=== PATIENT | female | born 1990 | race Caucasian/White ===

== ENCOUNTER 2018-09-10 01:09 | Emergency (ER) | payer OTHER ==
[2018-09-10 01:16] VITALS: TEMP 97.8
[2018-09-10 01:43] VITALS: BP 112/77; PULSE 87; RESP 18
[2018-09-10] MEDS ORDERED: PROPARACAINE 0.5% OPHTH DROPS 15 ML BTL LEFT EYE STA (01:44)
[2018-09-10] MEDS ORDERED: HYDROcodone/APAP 5-325MG 1 EACH TAB PO STA (01:44)
[2018-09-10] MEDS ORDERED: DIPH,PERTUS(ACELL)TETVAC-LF 0.5 ML VIAL IM ONE (01:45)
[2018-09-10] MEDS ORDERED: IBUPROFEN 400 MG TAB PO STA (01:45)
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
== END 2018-09-10 02:06 | disposition home or self-care (01) ==
LOC: EC 01:09
DX: T26.12XA Burn of cornea and conjunctival sac, left eye, initial encounter (principal); T20.09XA Burn of unspecified degree of multiple sites of head, face, and neck, initial encounter; F32.9 Major depressive disorder, single episode, unspecified; Z87.891 Personal history of nicotine dependence; Z79.899 Other long term (current) drug therapy; Z23 Encounter for immunization; X12.XXXA Contact with other hot fluids, initial encounter; Y93.01 Activity, walking, marching and hiking; Y92.009 Unspecified place in unspecified non-institutional (private) residence as the place of occurrence of the external cause
CPT/HCPCS: 90471; 90715; 99283

== ENCOUNTER → 2019-08-31 | Outpatient (CLI) | payer OTHER ==
--- NOTE | 2019-08-31 11:59 | MM ---
Reason for exam: screening (asymptomatic). Baseline mammogram. History: Taking hormonal contraceptives for 1 year. Physical Findings: Nurse Summary: 2cm nodule in the right breast at 1 o'clock and 8 o'clock (nurse amanda). MG Diagnostic Mammo w CAD MARRY Bilateral CC, MLO, and XCCL view(s) were taken. The breast tissue is extremely dense which could obscure a lesion on mammography. There is nodularity bilaterally. These results were verbally communicated with the patient and result sheet given to the patient on 08/31/19. ASSESSMENT: Incomplete: need additional imaging evaluation, BI-RAD 0 RECOMMENDATION: Ultrasound of both breasts.
--- NOTE | 2019-08-31 12:03 | USB ---
Reason for exam: additional evaluation requested from abnormal screening. History: Taking hormonal contraceptives for 1 year. Physical Findings: Breast exam preformed at baseline screening. US Breast BILAT Right complete breast ultrasound includes all four quadrants, the retroareolar region and axilla. Finding demonstrates a 1.6 x 1.5 x 1.7cm solid, vascular lesion at 8 o'clock. Left complete breast ultrasound includes all four quadrants, the retroareolar region and axilla. Finding demonstrates a 1.2 x 0.7 x 1.1cm solid lesion at 6 o'clock. These results were verbally communicated with the patient and result sheet given to the patient on 08/31/19. ASSESSMENT: Suspicious, BI-RAD 4 RECOMMENDATION: Ultrasound core biopsy of right breast and possibly smaller left breast lesion. Right lesion, left lesion radiologist discretion. Called Dr. Cook's office with mammographic findings and has scheduled an appointment for the patient for 10/17/19 at 2:[address] Albert. Biopsy scheduled for 09/17/19 at 8:00. PRELIMINARY REPORT CALLED AND FAXED TO DR. ALBERT ON 08/31/19. DONNYD
== END ==
LOC: RADMAMWWP 08:56
PROVIDERS: ATTEND Obstetrics & Gynecology
DX: R92.8 Other abnormal and inconclusive findings on diagnostic imaging of breast (principal); N63.10 Unspecified lump in the right breast, unspecified quadrant
CPT/HCPCS: 77066

== ENCOUNTER → 2019-09-17 | Day surgery (SDC) | payer OTHER ==
[2019-09-17 07:36] VITALS: RESP 16; BMI 23.8
[2019-09-17 09:13] VITALS: BP 99/67; PULSE 79; TEMP 98.6
--- NOTE | 2019-09-17 09:19 | USB ---
EXAMINATION TYPE: US biopsy breast VAD RT DATE OF EXAM: 09/17/2019 CLINICAL HISTORY: R92.8 ABN MAMMO. TECHNIQUE: Ultrasound guided core biopsy of right breast. COMPARISON: 08/31/2019 bilateral breast ultrasound. FINDINGS: The procedure of ultrasound guided core biopsy was explained to the patient. Benefits, alternatives, and risks were discussed. An informed consent was then obtained. Preprocedural timeout was performed. The patient was placed in supine positioning for imaging and for the procedure. The overlying skin was prepped and draped in usual sterile fashion. 10 cc of 1% lidocaine was used as anesthetic into the skin and subcutaneous tissue up to a 1.7 cm solid vascular mass at the 8:00 position in the right breast. Under ultrasound guidance, a 12-gauge vacuum assisted biopsy gun device was used to obtain 4 core samples. Following this, a coil-shaped biopsy marker was left in mass. This was seen well under ultrasound and therefore mammogram was not performed. The patient tolerated the procedure well without any immediate complication. The patient was kept in the radiology department for short stay after the procedure and then discharged home in stable condition. IMPRESSION: Successful, uncomplicated ultrasound guided core biopsy of a 1.7 cm solid vascular mass at the 8:00 position in the right breast (possible fibroadenoma), full pathology results to follow. Recommendation for a more smoothly marginated oval smaller left breast mass measuring 1.2 cm at the 6:00 position will be made on radiologic/pathologic correlation. If the biopsied mass represents a fibroadenoma six-month follow-up ultrasound would be recommended for both masses. If the right breast mass is neoplastic than the left breast mass with require biopsy. Pathology Results: Benign RIGHT BREAST, NEEDLE CORE BIOPSY: Fibroadenoma. Recommendation Follow up ultrasound of the right breast in 6 months. MAHOGANY
== END | disposition home or self-care (01) ==
LOC: RADUSWWP 06:57
PROVIDERS: ATTEND Surgery
DX: D24.1 Benign neoplasm of right breast (principal)
CPT/HCPCS: 88305; 19083; A4648; J2001

== ENCOUNTER → 2020-07-29 | Outpatient (CLI) | payer OTHER ==
--- NOTE | 2020-07-29 11:00 | USB ---
Reason for exam: follow-up at short interval from prior study. History: Benign US biopsy breast VAD RT of the right breast, September 17, 2019. Taking hormonal contraceptives for 1 year. Physical Findings: Nurse did not find any significant physical abnormalities on exam. US Breast BILAT Right complete breast ultrasound includes all four quadrants, the retroareolar region and axilla. Finding demonstrates a 2.0 x 1.3 x 1.6cm oval, solid lesion at 8 o'clock BB, previously biopsied. Left complete breast ultrasound includes all four quadrants, the retroareolar region and axilla. Finding demonstrates a 1.3 x 0.7 x 0.9cm oval, solid lesion at 6 o'clock BB previously 1.2 x 0.7 x 1.1cm. These results were verbally communicated with the patient and result sheet given to the patient on 07/29/20. ASSESSMENT: Benign, BI-RAD 2 RECOMMENDATION: Ultrasound of both breasts in 1 year. Routine screening mammogram of both breasts at age 33. Manage patient on a clinical basis.
== END | disposition home or self-care (01) ==
LOC: RADUSWWP 09:07
PROVIDERS: ATTEND Surgery
DX: R92.8 Other abnormal and inconclusive findings on diagnostic imaging of breast (principal)

== ENCOUNTER → 2021-07-30 | Outpatient (CLI) | payer MEDICAID, OTHER ==
--- NOTE | 2021-07-30 11:39 | USB ---
Reason for exam: clinical finding. History: Benign US biopsy breast VAD RT of the right breast, September 17, 2019. Taking hormonal contraceptives for 1 year. Indicated problem(s): lump or thickening in the right breast. Physical Findings: Nurse did not find any significant physical abnormalities on exam. US Breast BILAT Right complete breast ultrasound includes all four quadrants, the retroareolar region and axilla. Finding demonstrates a 2.1 x 1.8 x 1.4cm solid, hypoechoic lesion at 8 o'clock, biopsied, known fibroadenoma. Left complete breast ultrasound includes all four quadrants, the retroareolar region and axilla. Finding demonstrates a 1.1 x 0.8 x 0.7cm solid, hypoechoic lesion at 6 o'clock. These results were verbally communicated with the patient and result sheet given to the patient on 07/30/21. ASSESSMENT: Benign, BI-RAD 2 RECOMMENDATION: Routine screening mammogram of both breasts at age 38. Routine follow up with physician.
== END | disposition home or self-care (01) ==
LOC: RADUSWWP 08:51
PROVIDERS: ATTEND Surgery
DX: N64.89 Other specified disorders of breast (principal)

== ENCOUNTER → 2021-09-12 | Outpatient (CLI) | payer MEDICAID, OTHER | END | disposition home or self-care (01) | LOC: LABWHC1 05:39 | PROVIDERS: ATTEND Emergency Medicine | DX: U07.1 COVID-19 (principal) | CPT/HCPCS: 87635 ==

== ENCOUNTER → 2022-10-18 | Outpatient (CLI) | payer BC, OTHER ==
--- NOTE | 2022-10-18 11:22 | MM ---
Reason for Exam: Clinical finding. Last mammogram was performed 3 year(s) and 2 month(s) ago. Indicated Problems: Palpable abnormality of both sides. Patient History: Menarche at age 10. First Full-Term at age 20. Patient has history of breast feeding. Currently using Hormonal Contraceptives, for 1 year. 09/17/2019, Benign Core Biopsy on the right side. Paternal aunt had breast cancer. Paternal aunt had breast cancer. Paternal aunt had ovarian cancer. Paternal cousin had breast cancer. Paternal cousin had ovarian cancer. Last menstrual period: 05/07/2022 Tissue Density: The breast tissue is heterogeneously dense. This may lower the sensitivity of mammography. Findings: Analyzed By CAD. Redemonstration of right breast previously biopsied mass. No right-sided suspicious masses distortions or calcifications. New left-sided focal asymmetry posterior depth, 10 cm from the nipple, at 12:00 position. Overall Assessment: Incomplete: need additional imaging evaluation, BI-RAD 0 Management: Diagnostic Breast Ultrasound of the left breast. A clinical breast exam by your physician is recommended on an annual basis and results should be correlated with mammographic findings. This exam should not preclude additional follow-up of suspicious palpable abnormalities. Results were given to the patient verbally at the time of exam. Electronically signed and approved by: Yunior Lujan DO
--- NOTE | 2022-10-18 11:27 | USB ---
Reason for Exam: Clinical finding. Patient History: Menarche at age 10. First Full-Term at age 20. Patient has history of breast feeding. Currently using Hormonal Contraceptives, for 1 year. 09/17/2019, Benign Core Biopsy on the right side. Paternal aunt had breast cancer. Paternal aunt had breast cancer. Paternal aunt had ovarian cancer. Paternal cousin had breast cancer. Paternal cousin had ovarian cancer. Technique: Method: Targeted. Prior Study Comparison: 08/31/2019 Bilateral Diagnostic Mammogram, [facility]. Findings: The upper section of the breast of the left breast, the area of palpable concern of the left breast, the axilla of the left breast and the retroareolar of the left breast were scanned. Left breast area of concern at 12:00 was imaged, at 12:00 10 cm from nipple demonstrates a hypoechoic, antiparallel, irregular shaped, spiculated mass measuring 2.1 x 2.0 x 1.8 cm. Overall Assessment: Highly suggestive of malignancy, BI-RAD 5 Management: Ultrasound Core Biopsy of the left breast. A clinical breast exam by your physician is recommended on an annual basis and results should be correlated with mammographic findings. This exam should not preclude additional follow-up of suspicious palpable abnormalities. Results were given to the patient verbally at the time of exam. Electronically signed and approved by: Yunior Lujan DO
== END | disposition home or self-care (01) ==
LOC: RADMAMWWP 10:13
PROVIDERS: ATTEND Obstetrics & Gynecology
DX: N63.21 Unspecified lump in the left breast, upper outer quadrant (principal); N63.13 Unspecified lump in the right breast, lower outer quadrant; Z80.3 Family history of malignant neoplasm of breast; Z80.41 Family history of malignant neoplasm of ovary
CPT/HCPCS: 77062; 77066

== ENCOUNTER → 2022-10-27 | Day surgery (SDC) | payer BC, OTHER ==
--- NOTE | 2022-11-08 14:03 | MM ---
Reason for Exam: Post Procedure Mammogram. Last screening mammogram was performed less than 1 month ago. Patient History: Menarche at age 10. First Full-Term at age 20. Patient has history of breast feeding. Currently using Hormonal Contraceptives, for 1 year. 09/17/2019, Benign Core Biopsy on the right side. Paternal aunt had breast cancer. Paternal aunt had breast cancer. Paternal aunt had ovarian cancer. Paternal cousin had breast cancer. Paternal cousin had ovarian cancer. Prior Study Comparison: 08/31/2019 Bilateral Diagnostic Mammogram, [facility]. 10/18/2022 Bilateral MG 3D diag mammo w/cad MARRY, [facility]. Tissue Density: Left: The breast tissue is heterogeneously dense. This may lower the sensitivity of mammography. Pathology Description: Location: 12 o'clock. Marker Left Behind. Needle Type: Mammotome Cores: 6 Skin Nicks: 1 Gauge: 13 The procedure of ultrasound guided core biopsy was explained to the patient. Benefits, alternatives, and risks were discussed. An informed consent was then obtained. A timeout was performed. The patient was placed in supine positioning for imaging and for the procedure. The overlying skin was prepped and draped in usual sterile fashion. Lidocaine was used as anesthetic into the skin and subcutaneous tissue up to area of concern in the left breast. A small skin noemy was made with surgical scalpel. Under ultrasound guidance, a 12-gauge vacuum assisted biopsy gun device was used to obtain 6 core samples. A biopsy clip was left in lesion. Hydromark butterfly core marker was placed. The patient tolerated the procedure well without any immediate complication. The patient was kept in the radiology department for short stay after the procedure and then discharged home in stable condition. Postprocedure mammogram: The patient was transferred to mammography for physician ordered post procedure mammogram for clip placement verification. Impression: Successful ultrasound guided core biopsy of area of concern in the left breast, full pathology results to follow. Recommendations: 1. Recommendations are pending pathology results. Pathology Results: Result: Malignant, Invasive mammary carcinoma. 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 Overall Assessment: Malignant Assessment: MG diagnostic mammo LT wo CAD. - Left: Known biopsy proven malignancy, BI-RAD 6. Management: Surgical Consultation of the left breast. Electronically signed and approved by: Ezio Dominguez D.O. Radiologis
== END ==
LOC: RADUSWWP 12:45
PROVIDERS: ATTEND Surgery
DX: R92.8 Other abnormal and inconclusive findings on diagnostic imaging of breast (principal); Z17.0 Estrogen receptor positive status [ER+]; Z80.3 Family history of malignant neoplasm of breast; Z80.41 Family history of malignant neoplasm of ovary
CPT/HCPCS: 88305; 88342; 88341; 77065; 19083; A4648

== ENCOUNTER → 2022-11-19 | Outpatient (CLI) | payer BC, OTHER ==
--- NOTE | 2022-11-29 09:28 | BMR ---
EXAMINATION TYPE: MR breast BILAT wo/w con DATE OF EXAM: 11/19/2022 COMPARISON: Bilateral 3-D mammogram diagnostic October 18, 2022 BI-RADS 0. Limited left breast ultra sound October 18, 2022 BI-RADS 5. HISTORY: Lt Breast Cancer invasive moderately differentiated mammary carcinoma preliminary grade 2 on biopsy October 18, 2022, Rt breast mass at 7 O'clock. History of benign core biopsy right breast 20 19. TECHNIQUE: A series of fat and water weighted images in the long and short axis views of both breasts are obtained in conjunction with dynamic contrast MRI with subtraction technique. The patient was i njected with 8 mL intravenous Gadavist gadolinium contrast. Three-dimensional and additional postpr ocessing imaging is created on independent workstation and reviewed during official interpretation of this study. FINDINGS: Case reviewed in consultation with [facility] radiologist. I have reviewed and agree with imaging results and report. Extremely dense fibroglandular tissue throughout the bilateral breasts are redemonstrated. Benign-radha earing bilateral axillary lymph nodes are present. Symmetric mild background enhancement is seen. Del ayed dynamic imaging shows no internal mammary lymphadenopathy. With regards to the left breast at the 12:00 position, 10 cm distance from nipple corresponding to mo st recent mammogram and ultrasound there is irregular mass with spiculated margins measuring 2.6 x 1. 4 x 2.0 cm with heterogeneous enhancement having areas of fast enhancement and washout. There is carmine fact from biopsy clip along the anterior superior aspect of the lesion. No other enhancing masses or suspicious areas of enhancement. No abnormal skin thickening. The chest wall is intact. With regards to the right breast there is oval circumscribed mass measuring 2.3 x 1.4 x 1.9 cm in the middle depth lower outer quadrant roughly 7:00 position. Dynamic postcontrast imaging shows progress marleny enhancement with artifact from biopsy clip along the inferior lateral aspect. Lesion corresponds to biopsy-proven fibroadenoma from 2019. No additional enhancing masses or suspicious areas of enhanc ement. No abnormal skin thickening. The chest wall is intact. IMPRESSION: Biopsy-proven malignancy 12:00 position identified. Enhancing mass right breast correspon ds to biopsy proven fibroadenoma. No abnormal adenopathy. BI-RADS 2 benign findings right breast BI-RADS 6 biopsy-proven cancer left breast Recommendation: Appropriate surgical and oncologic management of known left breast neoplasm.
== END | disposition home or self-care (01) ==
LOC: RADMRIMAIN 08:01
PROVIDERS: ATTEND Internal Medicine Hematology & Oncology
DX: C50.412 Malignant neoplasm of upper-outer quadrant of left female breast (principal); C50.812 Malignant neoplasm of overlapping sites of left female breast; D24.1 Benign neoplasm of right breast; Z85.3 Personal history of malignant neoplasm of breast
CPT/HCPCS: 77049; A9585

== ENCOUNTER 2023-02-10 22:26 | Emergency (ER) | payer BC, OTHER ==
[2023-02-10 22:36] VITALS: BP 109/75; RESP 18
[2023-02-10] MEDS ORDERED: SODIUM CHLORIDE 0.9% 1,000 ML IV STA (23:02)
[2023-02-10] MEDS ORDERED: KETOROLAC 15 MG/ML 1 ML VIAL IVP STA (23:11)
--- NOTE | 2023-02-10 23:25 | ED ---
Fever HPI - General Chief Complaint: Fever Stated Complaint: fever Time Seen by Provider: 02/10/23 22:37 Source: patient, RN notes reviewed Mode of arrival: ambulatory Limitations: no limitations - History of Present Illness Initial Comments: This is a 32-year-old female who presents to the emergency department for a fever. Patient is currently being treated for breast cancer. She had a double mastectomy on 01/[address] Albert. 3 days ago, she had her first chemotherapy session. She is scheduled to have 4 rounds of chemotherapy, and the next one is scheduled on 02/28. States that she has had problems with the incision healing on the left breast and the area keeps opening up and seems to be getting bigger. She has not noticed any redness around the area and she is using creams and applying dressings as instructed. Unsure if there has been any increased drainage. She took her temperature at home earlier today because she felt very warm and her stepdaughter told her that she looked red. She said that her temperature was 100.4F at home. Up to this point she has not had any fevers. Denies any sore throat, cough, dyspnea, chest pain, palpitations, abdominal pain, nausea, vomiting, diarrhea, back pain, or headaches. MD Complaint: fever - Related Data Home Medications Medication Instructions Recorded Confirmed traZODone HCL [Desyrel] 75 mg PO HS PRN 10/18/22 01/03/23 Brexpiprazole [Rexulti] 1 mg PO HS 12/23/22 01/03/23 Escitalopram [Lexapro] 20 mg PO DAILY 12/23/22 01/03/23 hydrOXYzine pamoate [Vistaril] 25 mg PO BID PRN 12/23/22 01/03/23 Previous Rx's Medication Instructions Recorded Doxycycline [Vibramycin] 100 mg PO BID 1 Days #14 capsule 12/23/22 Docusate [Colace] 100 mg PO BID #30 capsule 01/04/23 HYDROcodone/APAP 5-325MG [Leslie 1 tab PO Q6HR PRN 3 Days #12 tab 01/04/23 5-325] Cephalexin [Keflex] 500 mg PO Q8HR 4 Days #12 cap 02/11/23 Allergies Allergy/AdvReac Type Severity Reaction Status Date / Time No Known Allergies Allergy Verified 02/10/23 22:31 Review of Systems ROS Statement: Those systems with pertinent positive or pertinent negative responses have been documented in the HPI. ROS Other: All systems not noted in ROS Statement are negative. Past Medical History Past Medical History: No Reported History, Cancer Additional Past Medical History / Comment(s): breast cancer current History of Any Multi-Drug Resistant Organisms: None Reported Past Surgical History: No Surgical Hx Reported Additional Past Surgical History / Comment(s): urethral mass removed. Right breast biopsy 2019 left breast biopsy Past Anesthesia/Blood Transfusion Reactions: No Reported Reaction Past Psychological History: Anxiety, Depression Smoking Status: Former smoker General Exam Limitations: no limitations General appearance: alert, in no apparent distress Head exam: Present: atraumatic, normocephalic, normal inspection Respiratory exam: Present: normal lung sounds bilaterally. Absent: respiratory distress, wheezes, rales, rhonchi, stridor Cardiovascular Exam: Present: regular rate, normal rhythm, normal heart sounds. Absent: systolic murmur, diastolic murmur, rubs, gallop, clicks Neurological exam: Present: alert, oriented X3, CN II-XII intact Psychiatric exam: Present: normal affect, normal mood Skin exam: Present: other (The incision on the left breast is open. However, there is no surrounding erythema, swelling, tenderness, or drainage.) Course Vital Signs 02/10/23 02/10/23 02/11/23 22:32 22:44 00:44 Temperature 98.2 F 100.2 F H 99.0 F Pulse Rate 115 H 106 H Respiratory 18 Rate Blood Pressure 109/75 O2 Sat by Pulse 98 97 Oximetry Medical Decision Making - Medical Decision Making This is a 32-year-old female who presents to the emergency department for a fever. Was pt. sent in by a medical professional or institution? @ -No Did you speak to anyone other than the patient for history? @ -No Did you review nursing and triage notes? @ -Yes, and I agree, it is accurate with regards to the patient's symptoms. Were old charts reviewed? @ -No Differential Diagnosis? @ -Differential Fever: Pneumonia, viral URI, endocarditis, myocarditis, pericarditis, otitis, sinusitis, peritonsillar Abscess, retropharyngeal Abscess, epiglottitis, peritonitis, appendicitis, Sri cystitis, diverticulitis, hepatitis, colitis, UTI, PID, TOA, pyelonephritis, prostatitis, epididymitis, meningitis, encephalitis, pulmonary embolism, CVA, thyroid storm, pancreatitis, adrenal crisis, cavernous sinus thrombosis, this is not meant to be an all-inclusive list. What testing was considered but not performed? (CT, X-rays, U/S, labs)? Why? @ -None What meds were considered but not given? Why? @ -None Did you discuss the management of the patient with other professionals? @ -No Did you reconcile home meds? @ -No Was smoking cessation discussed for >3mins.? @ -No Was critical care preformed (if so, how long)? @ -No Were there social determinants of health that impacted care today? How? (Homelessness, low income, unemployed, alcoholism, drug addiction, t ransportation, low edu. Level, literacy, decrease access to med. care, [facility], rehab)? @ -No Was there de-escalation of care discussed even if they declined? (Discuss DNR or withdrawal of care, Hospice)? @ -No What co-morbidities impacted this encounter? (DM, HTN, Smoking, COPD, CAD, Cancer, CVA, Hep., AIDS, mental health diagnosis, sleep apnea, morbid obesity)? @ -Breast cancer Was patient admitted / discharged? @ -Discharged. Lab work obtained and found to be relatively nonactionable. Her temperature was 100.2 degrees F on arrival and she was tachycardic at 115 BPM. She was given IV fluids and Toradol for the fever and pain. Her fever and pain both improved following medication administration. Advised the patient that we do not have a clear cause for her fever at this time. It may be related to the chemotherapy or other underlying infection. While the surgical site does appear clean, there is still a possibility bacteria entering the area. Ceftriaxone was subsequently administered. Prescription for 4 day course of Keflex provided, again, in the event there is infection starting to develop around the open surgical incision. She is instructed to contact Dr. Albert's office first thing in the morning regarding the fever and her emergency department visit here for further instruction. Also instructed her to avoid taking the Keflex that was prescribed until checking with Dr. Albert. Undiagnosed new problem with uncertain prognosis? @ -None Drug Therapy requiring intensive monitoring for toxicity (Heparin, Nitro, Insulin, Cardizem)? @ -None Were any procedures done? @ -None Diagnosis/symptom? @ -Fever Acute, or Chronic, or Acute on Chronic? @ -Acute Uncomplicated (without systemic symptoms) or Complicated (systemic symptoms)? @ -Uncomplicated Side effects of treatment? @ -None Exacerbation, Progression, or Severe Exacerbation] @ -Not applicable Poses a threat to life or bodily function? @ -This will depend on the cause and whether or not it progresses. Diagnosis/symptom? @ -Breast cancer Acute, or Chronic, or Acute on Chronic? @ -Chronic Uncomplicated (without systemic symptoms) or Complicated (systemic symptoms)? @ -Uncomplicated Side effects of treatment? @ -None Exacerbation, Progression, or Severe Exacerbation] @ -No Poses a threat to life or bodily function? @ -The cancer in itself is a life threatening illness. Return precautions reviewed in depth, the patient is instructed to return to the emergency department with any new, worsening, or concerning symptoms. Patient verbalized understanding. This case was discussed in detail with the attending ED physician, Dr. Patel. Presentation, findings, and treatment plan discussed in detail as well. - Lab Data Result diagrams: 02/10/23 23:03 02/10/23 23:03 Lab Results 02/10/23 02/10/23 02/10/23 Range/Units 23:03 23:03 23:03 WBC 10.2 (3.8-10.6) k/uL RBC 4.47 (3.80-5.40) m/uL Hgb 13.4 (11.4-16.0) gm/dL Hct 39.8 (34.0-46.0) % MCV 89.1 (80.0-100.0) fL MCH 30.1 (25.0-35.0) pg MCHC 33.7 (31.0-37.0) g/dL RDW 12.3 (11.5-15.5) % Plt Count 183 (150-450) k/uL MPV 8.8 Neutrophils % 84 % Lymphocytes % 10 % Monocytes % 3 % Eosinophils % 2 % Basophils % 1 % Neutrophils # 8.5 H (1.3-7.7) k/uL Lymphocytes # 1.0 (1.0-4.8) k/uL Monocytes # 0.3 (0-1.0) k/uL Eosinophils # 0.2 (0-0.7) k/uL Basophils # 0.1 (0-0.2) k/uL Manual Slide Review Performed Sodium 134 L (137-145) mmol/L Potassium 3.5 (3.5-5.1) mmol/L Chloride 97 L (98-107) mmol/L Carbon Dioxide 27 (22-30) mmol/L Anion Gap 10 mmol/L BUN 11 (7-17) mg/dL Creatinine 0.64 (0.52-1.04) mg/dL Est GFR (CKD-EPI)AfAm >90 (>60 ml/min/1.73 sqM) Est GFR (CKD-EPI)NonAf >90 (>60 ml/min/1.73 sqM) Glucose 88 (74-99) mg/dL Plasma Lactic Acid Kenan (0.7-2.0) mmol/L Calcium 8.4 (8.4-10.2) mg/dL Total Bilirubin 1.0 (0.2-1.3) mg/dL AST 24 (14-36) U/L ALT 27 (4-34) U/L Alkaline Phosphatase 72 (38-126) U/L C-Reactive Protein 1.9 H (<1.0) mg/dL Total Protein 7.2 (6.3-8.2) g/dL Albumin 4.1 (3.5-5.0) g/dL Urine Color Light Yellow Urine Appearance Clear (Clear) Urine pH 6.5 (5.0-8.0) Ur Specific [place] 1.007 (1.001-1.035) Urine Protein Negative (Negative) Urine Glucose (UA) Negative (Negative) Urine Ketones Negative (Negative) Urine Blood Trace H (Negative) Urine Nitrite Negative (Negative) Urine Bilirubin Negative (Negative) Urine Urobilinogen <2.0 (<2.0) mg/dL Ur Leukocyte Esterase Negative (Negative) Urine RBC 1 (0-5) /hpf Urine WBC 1 (0-5) /hpf Ur Squamous Epith Cells 1 (0-4) /hpf Urine Mucus Rare H (None) /hpf 02/10/23 Range/Units 23:03 WBC (3.8-10.6) k/uL RBC (3.80-5.40) m/uL Hgb (11.4-16.0) gm/dL Hct (34.0-46.0) % MCV (80.0-100.0) fL MCH (25.0-35.0) pg MCHC (31.0-37.0) g/dL RDW (11.5-15.5) % Plt Count (150-450) k/uL MPV Neutrophils % % Lymphocytes % % Monocytes % % Eosinophils % % Basophils % % Neutrophils # (1.3-7.7) k/uL Lymphocytes # (1.0-4.8) k/uL Monocytes # (0-1.0) k/uL Eosinophils # (0-0.7) k/uL Basophils # (0-0.2) k/uL Manual Slide Review Sodium (137-145) mmol/L Potassium (3.5-5.1) mmol/L Chloride (98-107) mmol/L Carbon Dioxide (22-30) mmol/L Anion Gap mmol/L BUN (7-17) mg/dL Creatinine (0.52-1.04) mg/dL Est GFR (CKD-EPI)AfAm (>60 ml/min/1.73 sqM) Est GFR (CKD-EPI)NonAf (>60 ml/min/1.73 sqM) Glucose (74-99) mg/dL Plasma Lactic Acid Kenan 1.2 (0.7-2.0) mmol/L Calcium (8.4-10.2) mg/dL Total Bilirubin (0.2-1.3) mg/dL AST (14-36) U/L ALT (4-34) U/L Alkaline Phosphatase (38-126) U/L C-Reactive Protein (<1.0) mg/dL Total Protein (6.3-8.2) g/dL Albumin (3.5-5.0) g/dL Urine Color Urine Appearance (Clear) Urine pH (5.0-8.0) Ur Specific [place] (1.001-1.035) Urine Protein (Negative) Urine Glucose (UA) (Negative) Urine Ketones (Negative) Urine Blood (Negative) Urine Nitrite (Negative) Urine Bilirubin (Negative) Urine Urobilinogen (<2.0) mg/dL Ur Leukocyte Esterase (Negative) Urine RBC (0-5) /hpf Urine WBC (0-5) /hpf Ur Squamous Epith Cells (0-4) /hpf Urine Mucus (None) /hpf Disposition Clinical Impression: Fever, Breast cancer Disposition: HOME SELF-CARE Instructions (If sedation given, give patient instructions): Fever in Adults (ED) Additional Instructions: Return to the emergency department with any new, worsening, or concerning symptoms. Take the antibiotic as prescribed for [address] Albert's office in the morning regarding your emergency department visit and the fever to see if he has any further instructions for you. Prescriptions: Cephalexin [Keflex] 500 mg PO Q8HR 4 Days #12 cap Is patient prescribed a controlled substance at d/c from ED?: No Referrals: None,Stated [Primary Care Provider] - 1-2 days
[2023-02-10 23:53] LABS: ALT 27 U/L (4-34); AST 24 U/L (14-36); African American GFR (CKD) >90 (>60 ml/min/1.73 sqM); Albumin 4.1 g/dL (3.5-5.0); Alkaline Phosphatase 72 U/L (38-126); Anion Gap 10 mmol/L; Blood Urea Nitrogen 11 mg/dL (7-17); C Reactive Protein 1.9 mg/dL (<1.0); Calcium 8.4 mg/dL (8.4-10.2); Carbon Dioxide 27 mmol/L (22-30); Chloride 97 mmol/L (98-107); Glucose 88 mg/dL (74-99); Non-African American GFR(CKD) >90 (>60 ml/min/1.73 sqM); Potassium 3.5 mmol/L (3.5-5.1); Sodium 134 mmol/L (137-145); Total Protein 7.2 g/dL (6.3-8.2)
[2023-02-11 00:03] LABS: Basophils # (A) 0.1 k/uL (0-0.2); Basophils % (A) 1 %; Eosinophils # (A) 0.2 k/uL (0-0.7); Eosinophils % (A) 2 %; HCT 39.8 % (34.0-46.0); HGB 13.4 gm/dL (11.4-16.0); Lymphocytes % (A) 10 %; MCH 30.1 pg (25.0-35.0); MCHC 33.7 g/dL (31.0-37.0); MCV 89.1 fL (80.0-100.0); Mean Platelet Volume 8.8; Monocytes # (A) 0.3 k/uL (0-1.0); Monocytes % (A) 3 %; Neutrophils # (A) 8.5 k/uL (1.3-7.7); Neutrophils % (A) 84 %; Platelet Count 183 k/uL (150-450); RBC 4.47 m/uL (3.80-5.40); RDW 12.3 % (11.5-15.5); WBC 10.2 k/uL (3.8-10.6)
[2023-02-11 00:37] LABS: Appearance,Urine Clear (Clear); Bilirubin,Urine Negative (Negative); Blood,Urine Trace (Negative); Color,Urine Light Yellow; Glucose,Urine (UA) Negative (Negative); Ketones,Urine Negative (Negative); Leukocyte Esterase,Urine Negative (Negative); Mucus,Urine Rare /hpf; Nitrite,Urine Negative (Negative); PH, Urine 6.5 (5.0-8.0); Protein,Urine Negative (Negative); RBC,Urine 1 /hpf (0-5); Specific Gravity,Urine 1.007 (1.001-1.035); Squamous Epithelial Cell,Urine 1 /hpf (0-4); Urobilinogen,Urine <2.0 mg/dL (<2.0); WBC,Urine 1 /hpf (0-5)
[2023-02-11 00:44] VITALS: PULSE 106; TEMP 99
[2023-02-11] MEDS ORDERED: cefTRIAXone IN SWFI 1,000 MG/10 ML SYRINGE IVP STA (00:54)
== END 2023-02-11 01:20 | disposition home or self-care (01) ==
LOC: EC 22:26
DX: C50.912 Malignant neoplasm of unspecified site of left female breast (principal); R50.9 Fever, unspecified; F41.9 Anxiety disorder, unspecified; F32.A Depression, unspecified; Z87.891 Personal history of nicotine dependence
CPT/HCPCS: 36415; 80053; 83605; 85025; 86140; 81001; 87040; 99283; 96374; 96375; 96361; J0696; J1885

== ENCOUNTER 2023-02-17 22:22 | Inpatient (IN) | payer BC, OTHER ==
[2023-02-17] MEDS ORDERED: ACETAMINOPHEN TAB 500 MG TAB PO STA (22:54)
[2023-02-17] MEDS: SODIUM CHLORIDE 0.9% 500 ML 500 ML IV SCH (23:10)
--- NOTE | 2023-02-17 23:34 | ED ---
General Adult HPI - General Chief complaint: Fever Stated complaint: Fever, Post Op Complication Time Seen by Provider: 02/17/23 22:34 Source: patient Mode of arrival: ambulatory Limitations: no limitations - History of Present Illness Initial comments: This is a 32-year-old female with a past medical history including active breast cancer undergoing chemotherapy with her last session being last Tuesday presents emergency department for fevers, chills and right breast pain. The patient stated that throughout the day she certainly feel fevers and chills and had worsening right breast swelling and pain. The patient denied any trauma to the right breast and denied any active infection. The patient denied any recent surgery to the right breast but did state that she had expanders in status post bilateral mastectomy in December. The patient did have an open healing wound on the left breast but denied of any pain there. The patient was also seen at her oncologist office earlier in the day where it was noted that she had an elevated white blood cell count as well as a mildly elevated fever at 99F. The patient did contact her oncologist regarding her new symptoms today and she was advised to come to the emergency department. The patient had been on Keflex for approximately 7 days for a recurrent infection in the open wound of the left breast and stated that her symptoms were present while on the Keflex. The patient also reported some mild nausea but denied any active vomiting today. The patient denied any complaints. The patient was resting in bed comfortably. - Related Data Home Medications Medication Instructions Recorded Confirmed traZODone HCL [Desyrel] 75 mg PO HS PRN 10/18/22 01/03/23 Brexpiprazole [Rexulti] 1 mg PO HS 12/23/22 01/03/23 Escitalopram [Lexapro] 20 mg PO DAILY 12/23/22 01/03/23 hydrOXYzine pamoate [Vistaril] 25 mg PO BID PRN 12/23/22 01/03/23 Previous Rx's Medication Instructions Recorded Doxycycline [Vibramycin] 100 mg PO BID 1 Days #14 capsule 12/23/22 Docusate [Colace] 100 mg PO BID #30 capsule 01/04/23 HYDROcodone/APAP 5-325MG [Dillon 1 tab PO Q6HR PRN 3 Days #12 tab 01/04/23 5-325] Cephalexin [Keflex] 500 mg PO Q8HR 4 Days #12 cap 02/11/23 Allergies Allergy/AdvReac Type Severity Reaction Status Date / Time No Known Allergies Allergy Verified 02/17/23 22:24 Review of Systems ROS Statement: Those systems with pertinent positive or pertinent negative responses have been documented in the HPI. ROS Other: All systems not noted in ROS Statement are negative. Past Medical History Past Medical History: No Reported History, Cancer Additional Past Medical History / Comment(s): breast cancer current History of Any Multi-Drug Resistant Organisms: None Reported Past Surgical History: No Surgical Hx Reported Additional Past Surgical History / Comment(s): urethral mass removed. Right breast biopsy 2019 left breast biopsy Past Anesthesia/Blood Transfusion Reactions: No Reported Reaction Past Psychological History: Anxiety, Depression Smoking Status: Former smoker Past Alcohol Use History: None Reported Past Drug Use History: None Reported General Exam Limitations: no limitations General appearance: alert, in no apparent distress Head exam: Present: atraumatic, normocephalic, normal inspection Eye exam: Present: normal appearance, PERRL Pupils: Present: normal accommodation ENT exam: Present: normal exam, normal oropharynx, mucous membranes moist Neck exam: Present: normal inspection, full ROM Respiratory exam: Present: normal lung sounds bilaterally Cardiovascular Exam: Present: normal rhythm, tachycardia, normal heart sounds GI/Abdominal exam: Present: soft, normal bowel sounds Extremities exam: Present: normal inspection, full ROM Back exam: Present: normal inspection, full ROM Neurological exam: Present: alert, oriented X3, CN II-XII intact Psychiatric exam: Present: normal affect, normal mood Skin exam: Present: warm, dry Expanded Type of lesion: Present: other (Minor swelling noted to the right breast without any significant erythema noted. There was tenderness to palpation throughout the right breast. Hot Die Picker was present.) Course Vital Signs 02/17/23 02/17/23 22:24 23:53 Temperature 102.4 F H 100.7 F H Pulse Rate 124 H 102 H Respiratory 18 18 Rate Blood Pressure 107/69 O2 Sat by Pulse 98 96 Oximetry EKG Findings - EKG Comments: EKG Findings:: An EKG was obtained and was interpreted by myself showing a rate of 104, CT interval 129, QRS duration of 84 and QTC of 401. This EKG showed a sinus tachycardia with no ST segment elevation or depression noted. Medical Decision Making - Medical Decision Making Was pt. sent in by a medical professional or institution ([facility], [facility], urgent care, hospital, or fdc...) When possible be specific @ -Yes, Dr. Gomez Did you speak to anyone other than the patient for history (EMS, parent, family, police, friend...)? What history was obtained from this source @ -No Did you review nursing and triage notes (agree or disagree)? Why? @ -I reviewed and agree with nursing and triage notes Were old charts reviewed (outside hosp., previous admission, EMS record, old EKG, old radiological studies, urgent care reports/EKG's, fdc records)? Report findings @ -No old charts were reviewed Differential Diagnosis (chest pain, altered mental status, abdominal pain women, abdominal pain men, vaginal bleeding, weakness, fever, dyspnea, syncope, headache, dizziness, GI bleed, back pain, seizure, CVA, palpatations, mental health)? @ -Breast abscess, breast cellulitis, sepsis EKG interpreted by me (3pts min.). @ -As above X-rays interpreted by me (1pt min.). @ -None done CT interpreted by me (1pt min.). @ -None done U/S interpreted by me (1pt. min.). @ -An ultrasound of the right breast was obtained and was interpreted by myself showing an approximately 2.2 x 0.7 x 1 cm fluid collection in the right breast in the area of pain. It is located within 3 mm of the skin surface. This is likely a small abscess. What testing was considered but not performed or refused? (CT, X-rays, U/S, labs)? Why? @ -None What meds were considered but not given or refused? Why? @ -None Did you discuss the management of the patient with other professionals (professionals i.e. [facility] V[facility], [facility], lab, RT, psych nurse, case management social worker, sludge mill operator, teacher, gunnery/ordnance officer, business case analyst)? Give summary @ -Yes, admitting physician was contacted regarding admission for the patient. Was smoking cessation discussed for >3mins.? @ -No Was critical care preformed (if so, how long)? @ -No Were there social determinants of health that impacted care today? How? (Homelessness, low income, unemployed, alcoholism, drug addiction, transportation, low edu. Level, literacy, decrease access to med. care, longterm, rehab)? @ -No Was there de-escalation of care discussed even if they declined (Discuss DNR or withdrawal of care, Hospice)? DNR status @ -No What co-morbidities impacted this encounter? (DM, HTN, Smoking, COPD, CAD, Cancer, CVA, ARF, Chemo, Hep., AIDS, mental health diagnosis, sleep apnea, morbid obesity)? @ -Breast cancer on chemotherapy Was patient admitted / discharged? Hospital course, mention meds given and route, prescriptions, significant lab abnormalities, going to OR and other pertinent info. @ -The patient was seen and evaluated emergency department. Physical exam, the patient was resting in bed without any acute distress. Vital signs admission did show tachycardia with a fever. Due to this presentation in the setting of a right breast pain and likely abscess, the patient undergoes went sepsis workup. White blood cell count was 19. The remainder of the laboratory workup was within normal limits. The ultrasound did demonstrate a likely breast abscess the patient did have blood cultures obtained, and antibiotics were given and the patient had 30 mL per KG of fluids per sepsis protocol. Due to the patient's sepsis secondary to breast abscess, the patient will be admitted for further workup and evaluation. The patient's oncologist as well as breast surgeon will be placed on consult. Was told of this plan and was agreeable. The patient was admitted in stable condition. Undiagnosed new problem with uncertain prognosis? @ -No Drug Therapy requiring intensive monitoring for toxicity (Heparin, Nitro, Insulin, Cardizem)? @ -No Were any procedures done? @ -No Diagnosis/symptom? @ -Sepsis secondary to breast abscess Acute, or Chronic, or Acute on Chronic? @ -Acute Uncomplicated (without systemic symptoms) or Complicated (systemic symptoms)? @ -Complicated Side effects of treatment? @ -No Exacerbation, Progression, or Severe Exacerbation? @ -No Poses a threat to life or bodily function? How? (Chest pain, [place], [place], pneumonia, PE, COPD, DKA, ARF, appy, cholecystitis, CVA, Diverticulitis, Homicidal, Suicidal, threat to staff... and all critical care pts) @ -Yes, sepsis can lead to end organ damage and possible . - Lab Data Result diagrams: 02/17/23 23:08 02/17/23 23:08 Lab Results 02/17/23 02/17/2323 Range/Units 23:08 23:08 23:08 WBC 19.0 H (3.8-10.6) k/uL RBC 3.84 (3.80-5.40) m/uL Hgb 11.7 (11.4-16.0) gm/dL Hct 34.7 (34.0-46.0) % MCV 90.4 (80.0-100.0) fL MCH 30.4 (25.0-35.0) pg MCHC 33.6 (31.0-37.0) g/dL RDW 13.9 (11.5-15.5) % Plt Count 175 (150-450) k/uL MPV 8.6 PT 10.2 (9.0-12.0) sec INR 1.0 (<1.2) APTT 23.8 (22.0-30.0) sec Sodium 135 L (137-145) mmol/L Potassium 4.1 (3.5-5.1) mmol/L Chloride 100 (98-107) mmol/L Carbon Dioxide 28 (22-30) mmol/L Anion Gap 7 mmol/L BUN 7 (7-17) mg/dL Creatinine 0.71 (0.52-1.04) mg/dL Est GFR (CKD-EPI)AfAm >90 (>60 ml/min/1.73 sqM) Est GFR (CKD-EPI)NonAf >90 (>60 ml/min/1.73 sqM) Glucose 103 H (74-99) mg/dL Plasma Lactic Acid Kenan (0.7-2.0) mmol/L Calcium 8.8 (8.4-10.2) mg/dL Total Bilirubin 0.6 (0.2-1.3) mg/dL AST 43 H (14-36) U/L ALT 79 H (4-34) U/L Alkaline Phosphatase 75 (38-126) U/L Total Protein 6.7 (6.3-8.2) g/dL Albumin 3.9 (3.5-5.0) g/dL Urine Color Urine Appearance (Clear) Urine pH (5.0-8.0) Ur Specific [place] (1.001-1.035) Urine Protein (Negative) Urine Glucose (UA) (Negative) Urine Ketones (Negative) Urine Blood (Negative) Urine Nitrite (Negative) Urine Bilirubin (Negative) Urine Urobilinogen (<2.0) mg/dL Ur Leukocyte Esterase (Negative) Urine RBC (0-5) /hpf Urine WBC (0-5) /hpf Ur Squamous Epith Cells (0-4) /hpf 02/17/23 02/17/23 Range/Units 23:08 23:30 WBC (3.8-10.6) k/uL RBC (3.80-5.40) m/uL Hgb (11.4-16.0) gm/dL Hct (34.0-46.0) % MCV (80.0-100.0) fL MCH (25.0-35.0) pg MCHC (31.0-37.0) g/dL RDW (11.5-15.5) % Plt Count (150-450) k/uL MPV PT (9.0-12.0) sec INR (<1.2) APTT (22.0-30.0) sec Sodium (137-145) mmol/L Potassium (3.5-5.1) mmol/L Chloride (98-107) mmol/L Carbon Dioxide (22-30) mmol/L Anion Gap mmol/L BUN (7-17) mg/dL Creatinine (0.52-1.04) mg/dL Est GFR (CKD-EPI)AfAm (>60 ml/min/1.73 sqM) Est GFR (CKD-EPI)NonAf (>60 ml/min/1.73 sqM) Glucose (74-99) mg/dL Plasma Lactic Acid Kenan 1.1 (0.7-2.0) mmol/L Calcium (8.4-10.2) mg/dL Total Bilirubin (0.2-1.3) mg/dL AST (14-36) U/L ALT (4-34) U/L Alkaline Phosphatase (38-126) U/L Total Protein (6.3-8.2) g/dL Albumin (3.5-5.0) g/dL Urine Color Light Yellow Urine Appearance Clear (Clear) Urine pH 7.5 (5.0-8.0) Ur Specific [place] 1.008 (1.001-1.035) Urine Protein Negative (Negative) Urine Glucose (UA) Negative (Negative) Urine Ketones Negative (Negative) Urine Blood Trace H (Negative) Urine Nitrite Negative (Negative) Urine Bilirubin Negative (Negative) Urine Urobilinogen <2.0 (<2.0) mg/dL Ur Leukocyte Esterase Negative (Negative) Urine RBC 2 (0-5) /hpf Urine WBC 1 (0-5) /hpf Ur Squamous Epith Cells 2 (0-4) /hpf Disposition Clinical Impression: Breast abscess, Breast cancer, Sepsis Disposition: ADMITTED IP TO THIS HOSP Condition: Stable Is patient prescribed a controlled substance at d/c from ED?: No Referrals: None,Stated [Primary Care Provider] - 1-2 days Time of Disposition: 00:15 Decision to Admit Reason: Admit from EC Decision Date: 02/18/23 Decision Time: 00:15
[2023-02-17 23:48] LABS: ALT 79 U/L (4-34); AST 43 U/L (14-36); African American GFR (CKD) >90 (>60 ml/min/1.73 sqM); Albumin 3.9 g/dL (3.5-5.0); Alkaline Phosphatase 75 U/L (38-126); Anion Gap 7 mmol/L; Blood Urea Nitrogen 7 mg/dL (7-17); Calcium 8.8 mg/dL (8.4-10.2); Carbon Dioxide 28 mmol/L (22-30); Chloride 100 mmol/L (98-107); Glucose 103 mg/dL (74-99); Non-African American GFR(CKD) >90 (>60 ml/min/1.73 sqM); Potassium 4.1 mmol/L (3.5-5.1); Sodium 135 mmol/L (137-145); Total Bilirubin 0.6 mg/dL (0.2-1.3); Total Protein 6.7 g/dL (6.3-8.2)
[2023-02-17 23:58] LABS: Appearance,Urine Clear (Clear); Bilirubin,Urine Negative (Negative); Blood,Urine Trace (Negative); Color,Urine Light Yellow; Glucose,Urine (UA) Negative (Negative); Ketones,Urine Negative (Negative); Leukocyte Esterase,Urine Negative (Negative); Nitrite,Urine Negative (Negative); PH, Urine 7.5 (5.0-8.0); Protein,Urine Negative (Negative); RBC,Urine 2 /hpf (0-5); Specific Gravity,Urine 1.008 (1.001-1.035); Squamous Epithelial Cell,Urine 2 /hpf (0-4); Urobilinogen,Urine <2.0 mg/dL (<2.0); WBC,Urine 1 /hpf (0-5)
[2023-02-18 00:04] LABS: Partial Thromboplastin Time 23.8 sec (22.0-30.0); Prothrombin Time 10.2 sec (9.0-12.0)
[2023-02-18 00:50] LABS: HCT 34.7 % (34.0-46.0); HGB 11.7 gm/dL (11.4-16.0); MCH 30.4 pg (25.0-35.0); MCHC 33.6 g/dL (31.0-37.0); MCV 90.4 fL (80.0-100.0); Mean Platelet Volume 8.6; Platelet Count 175 k/uL (150-450); RBC 3.84 m/uL (3.80-5.40); RDW 13.9 % (11.5-15.5)
--- NOTE | 2023-02-18 00:59 | US ---
EXAM: US Right Breast, Limited CLINICAL HISTORY: US Reason: Breast abscess TECHNIQUE: Limited real time ultrasound of the right breast with image documentation, including axilla when performed. COMPARISON: Mammogram from October 27, 2022. FINDINGS: Right breast: There is an approximately 2.2 x 0.7 x 1 cm fluid collection in the right breast in the area of pain. The location of this finding within the right breast is not provided by the mine expert. This is located within 3 mm of the skin surface. Consider small abscess or seroma. Partial visualization of a breast implant deep to the area of interest. No significant surrounding fluid is seen. IMPRESSION: There is an approximately 2.2 x 0.7 x 1 cm fluid collection in the right breast in the area of pain. The location of this finding within the right breast is not provided by the mine expert. This is located within 3 mm of the skin surface. Consider small abscess or seroma.
[2023-02-18] MEDS ORDERED: VANCOMYCIN IV PER PHARMACY 1 EACH MISC MISCELLANE PRN (01:23)
[2023-02-18] MEDS: SODIUM CHLORIDE 0.9% 500 ML 500 ML IV SCH ×3 (01:31→01:55)
[2023-02-18] MEDS ORDERED: VANCOMYCIN 1,250 MG in SODIUM CHLORIDE 0.9% 250 ML IVPB ONE (02:00)
[2023-02-18 03:07] LABS: Band Neutrophils % 7 %; Lymphocytes # (M) 2.28 k/uL (1.0-4.8); Metamyelocytes # (M) 0.38 k/uL (0); Metamyelocytes % 2 %; Monocytes # (M) 1.14 k/uL (0-1.0); Neutrophils % (M) 74 %; Nucleated Red Blood Cells 0 /100 WBC (0-0); Total Cells Counted 200
[2023-02-18 03:09] LABS: Anisocytosis (M) Present
[2023-02-18] MEDS ORDERED: hydrOXYzine pamoate 25 MG CAP PO PRN (09:56)
[2023-02-18] MEDS: ESCITALOPRAM 20 MG TAB PO SCH (12:26)
[2023-02-18] MEDS: ONDANSETRON 4 MG/2 ML VIAL IVP PRN ×2 (12:26→19:50)
--- NOTE | 2023-02-18 12:59 | P.HPIM ---
History of Present Illness H&P Date: 02/18/23 History of present illness; patient is a 32-year-old lady with history of breast cancer presented to the ER because of fever ,chills and right breast pain. Patient is currently undergoing chemotherapy. Patient has been having fever and chills at home, denies any recent trauma to her breast. Denies any chest pain or shortness of breath. Patient was seen at her oncologist office and blood work done there showed patient to have elevated white count, they referred her to the ER. In the ER, initial lab work done showed WBC of 19, hemoglobin 11.7, MCV 90.4 platelet count 175, sodium 135, potassium 4.1, chloride 100, BUN 7, creatinine 0.71. Patient had a right breast ultrasound done that showed 0.2 bites 0.7 x 1 cm fluid collection in the right breast in the area of pain. This is located wit hin 3 mm of the skin surface. Consider small abscess or seroma Patient admitted for further evaluation and treatment REVIEW OF SYSTEMS: CONSTITUTIONAL: As mentioned in HPI HEENT: No recent visual problems or hearing problems. Denied any sore throat. CARDIOVASCULAR: No chest pain, orthopnea, PND, no palpitations, no syncope. PULMONARY: No shortness of breath, no cough, no hemoptysis. GASTROINTESTINAL: No diarrhea, no nausea, no vomiting, no abdominal pain. NEUROLOGICAL: No headaches, HEMATOLOGICAL: Denies any bleeding or petechiae. GENITOURINARY: Denies any burning micturition, frequency, or urgency. MUSCULOSKELETAL/RHEUMATOLOGICAL: Denies any joint pain, swelling, or any muscle pain. ENDOCRINE: Denies any polyuria or polydipsia. The rest of the 14-point review of systems is negative. PHYSICAL EXAMINATION: GENERAL: The patient is alert and oriented x3, not in any acute distress. Well developed, well nourished. HEENT: Pupils are round and equally reacting to light. EOMI. No scleral icterus. No conjunctival pallor. Normocephalic, atraumatic. No pharyngeal erythema. No thyromegaly. CARDIOVASCULAR: S1 and S2 present. No murmurs, rubs, or gallops. PULMONARY: Chest is clear to auscultation, no wheezing or crackles. ABDOMEN: Soft, nontender, nondistended, normoactive bowel sounds. No palpable organomegaly. MUSCULOSKELETAL: No joint swelling or deformity. EXTREMITIES: No cyanosis, clubbing, or pedal edema. NEUROLOGICAL: Gross neurological examination did not reveal any focal deficits. SKIN: No rashes. Right breast slightly tender and erythematous ( examined in the presence of division commander) Assessment and plan Sepsis Right breast abcess History of breast cancer Leukocytosis Plan; Monitor vital signs Monitor CBC Monitor CMP Follow-up blood cultures Continue IV Rocephin and vancomycin Hematology oncology consulted Consult surgery for right breast abscess Consult ID Consulted IR Past Medical History Past Medical History: No Reported History, Cancer Additional Past Medical History / Comment(s): breast cancer current History of Any Multi-Drug Resistant Organisms: None Reported Past Surgical History: No Surgical Hx Reported Additional Past Surgical History / Comment(s): urethral mass removed. Right breast biopsy 2019 left breast biopsy Past Anesthesia/Blood Transfusion Reactions: No Reported Reaction Past Psychological History: Anxiety, Depression Smoking Status: Former smoker Past Alcohol Use History: None Reported Additional Past Alcohol Use History / Comment(s): quit november 2022, smoked 4 yrs prior Past Drug Use History: None Reported Additional Drug Use History / Comment(s): mj for nausea when needed, refrain 24 hours to surgery Medications and Allergies Home Medications Medication Instructions Recorded Confirmed Type traZODone HCL [Desyrel] 50 - 75 mg PO HS PRN 10/18/22 02/18/23 History Brexpiprazole [Rexulti] 1 mg PO HS 12/23/22 02/18/23 History Escitalopram [Lexapro] 20 mg PO DAILY 12/23/22 02/18/23 History hydrOXYzine pamoate [Vistaril] 25 mg PO BID PRN 12/23/22 02/18/23 History OLANZapine [ZyPREXA] 2.5 mg PO HS 02/18/23 02/18/23 History Ondansetron [Zofran] 4 mg PO Q4H PRN 02/18/23 02/18/23 History Allergies Allergy/AdvReac Type Severity Reaction Status Date / Time No Known Allergies Allergy Verified 02/18/23 07:43 Physical Exam Vitals: Vital Signs Temp Pulse Pulse Resp BP BP Pulse Ox 02/18/23 07:41 99.8 F H 100 18 112/71 99 02/18/23 02:01 95 02/18/23 01:58 98.4 F 92 18 121/75 95 04/13/23 23:53 100.7 F H 102 H 18 96 02/17/23 22:24 102.4 F H 124 H 18 107/69 98 Intake and Output 02/17/23 02/18/23 02/18/23 22:59 06:59 14:59 Intake Total 200 Balance 200 Intake: Oral 200 Other: Voiding Method Toilet # Voids 2 Weight 78.925 kg 78.925 kg Results CBC & Chem 7: 02/17/23 23:08 02/17/23 23:08 Labs: Abnormal Lab Results - Last 24 Hours (Table) 02/17/23 02/17/23 02/17/23 Range/Units 23:08 23:08 23:30 WBC 19.0 H (3.8-10.6) k/uL Neutrophils # (Manual) 15.30 H (1.3-7.7) k/uL Monocytes # (Manual) 1.14 H (0-1.0) k/uL Metamyelocytes # (Man) 0.38 H (0) k/uL Sodium 135 L (137-145) mmol/L Glucose 103 H (74-99) mg/dL AST 43 H (14-36) U/L ALT 79 H (4-34) U/L Urine Blood Trace H (Negative) Thrombosis Risk Factor Assmnt - Choose All That Apply Any of the Below Risk Factors Present?: No
--- NOTE | 2023-02-18 14:26 | P.GSCN ---
History of Present Illness Consult date: 02/18/23 History of present illness: CHIEF COMPLAINT: Right breast abscess HISTORY OF PRESENT ILLNESS: This is a 32-year-old female with history of breast cancer and is currently undergoing chemotherapy. Last session was on Tuesday. Patient status post bilateral skin sparing mastectomy with sentinel lymph node biopsy of left breast and reconstruction surgery with plastic surgeon on 01/03/2023. Patient has been following up with a plastic surgeon weekly. Patient does have a known open wound on the left breast incision. She has been following wound care instructions per her plastic surgeon. Patient reports yesterday she started having swelling and what felt like engorgement on the right medial aspect of the breast. She noted some redness and warmth along the incision and increase in pain. Patient also started spiking fevers. Temp was as high as 102. She was also found to be tachycardic on admission with an elevated white count of 19. Breast ultrasound completed showing a 2 x 2 by 0.7 x 1 cm fluid collection in the right breast. It is located within 3 mm of skin surface consider small abscess or swelling. PAST MEDICAL HISTORY: See list. PAST SURGICAL HISTORY: See list. MEDICATIONS: See list. ALLERGIES: See list. SOCIAL HISTORY: No illicit drug use. REVIEW OF SYSTEMS: CONSTITUTIONAL: Denies fever or chills. HEENT: Denies blurred vision, vision changes, or eye pain. Denies hemoptysis ENDOCRINE: Denies heat or cold intolerance. CARDIOVASCULAR: Denies chest pain or pressure. RESPIRATORY: No shortness of breath. GASTROINTESTINAL: Denies abdominal pain. Denies nausea or vomiting. NEURO: Denies history of seizures. PSYCH: No depression or suicidal ideation HEMATOLOGIC: Denies bleeding disorders. LYMPHATIC: The patient denies any lumps and bumps around the neck. GENITOURINARY: Denies any blood in urine or increased urinary frequency. MUSCULOSKELETAL: Denies myalgias. Denies joint swelling. Denies decreased range of motion beyond patients baseline. SKIN: Denies pruitis. Denies rash. PHYSICAL EXAM: VITAL SIGNS: Reviewed GENERAL: Well-developed in no acute distress. HEENT: No sclera icterus. Extraocular movements grossly intact. Moist buccal mucosa. Head is atraumatic, normocephalic. Hears conversational speech. No nasal drainage. NECK: Supple without lymphadenopathy. CHEST: Non-labored respirations and equal bilateral excursions. CARDIOVASCULAR: Palpable 2+ radial pulses. ABDOMEN: Soft. Nondistended. Nontender MUSCULOSKELETAL: No clubbing or cyanosis. NEUROLOGIC: No focal or lateralizing signs. Cranial nerves II through XII grossly intact. PSYCH: Appropriate affect. Alert and oriented to person, place and time. SKIN: Well perfused. Good skin turgor. Breast: Left breast open wound on incision. Right breast swollen with tenderness along the right medial aspect and lateral aspect of the breast. Incision minimal erythema. No drainage from incision. Suture in place. LABORATORY DATA: WBC is 19 Hgb 11.7 platelets 175 Sodium is 135 potassium is 4.1 creatinine 0.71 Glucose 103 lactic acid 1.1 AST 43 ALT 79 Blood cultures pending IMAGING: Breast ultrasound as stated above ASSESSMENT: 1. Right breast abscess with ultrasound showing a 2.2 x 1 cm fluid collection 2. Status post bilateral skin sparing mastectomy with sentinel lymph node biopsy of left breast and reconstruction surgery with plastic surgeon on 01/03/2023 3. Sepsis due to right breast abscess PLAN: -Continue IV antibiotics -Agree with infectious disease consult -Dr. Cary did discuss case with patient's plastic surgeon, Dr. Mike. At this time he recommend no drainage or any surgical intervention of the abscess. He recommends to continue with IV antibiotics and monitor. -Interventional radiology consult was canceled. This was discussed with medicine service and patient's who will be notifying the IR service Thank you for this consultation Physician [employer] Window Tinter note has been reviewed by physician. Signing provider agrees with the documented findings, assessment, and plan of care. REASON FOR CONSULTATION: Right breast abscess HISTORY OF PRESENT ILLNESS: The patient is a 32-year-old female with left breast cancer is status post bilateral mastectomy with left axillary sentinel lymph node biopsy with micrometastases and bilateral tissue expanders for breast reconstruction, 01/03/2023. Patient reports having drains which were removed 8 days after operation. She has been following up with her plastic surgeon weekly. She developed wound infection along the left breast which she is packing with antibacterial dressing. Patient reports developing swelling along the right medial breast. She developed temperature 10 3F last night. Patient presented to the emergency room due to fever including new right breast swelling. She reports no prior tissue expansion performed. She was pending follow-up with her plastic surgeon today. Blood cultures have been obtained. She is on vancomycin. WBC on admission 19,000. PAST MEDICAL HISTORY: See list and reviewed PAST SURGICAL HISTORY: See list and reviewed MEDICATIONS: See list and reviewed ALLERGIES: See list and reviewed SOCIAL HISTORY: See list and reviewed FAMILY HISTORY: See list and reviewed REVIEW OF ORGAN SYSTEMS: CONSTITUTIONAL: Temperature 102.4. No recent weight loss. EYES: Denies any trouble with vision. No glasses. HEENT: No difficulties with hearing. No nosebleeds. No difficulty swallowing. RESPIRATORY: Denies pneumonia. Denies any troubles with breathing or dyspnea on exertion. CARDIOVASCULAR: Denies any chest pain, palpitations, or recent heart attacks. GASTROINTESTINAL: Denies fatty food intolerance. Denies change in bowel habits and gas bloat. GENITOURINARY: Denies any blood in urine or increased urinary frequency. NEUROLOGICAL: Denies any numbness or tingling along the distal extremities. No seizure disorders or headaches. MUSCULOSKELETAL: Denies any back pain, stiffness or joint arthritis. SKIN: No current skin cancer. No rash. PSYCHIATRIC: Has anxiety and depression ENDOCRINE: Denies current thyroid disorders. Denies any blood sugar glucose intolerance. HEME/LYMPHATIC: Denies any lumps and bumps around the neck. No recent deep venous thrombosis. ALLERGY/IMMUNOLOGY: No immunoglobulin therapy. No immune deficiencies. BREAST: Right breast biopsy. Left breast cancer. Bilateral mastectomy. PHYSICAL EXAM: VITALS: Reviewed CONSTITUTIONAL: Well developed and in no acute distress. EYES: Conjuctivae without sclera icterus. Extraocular movements grossly intact. HEAD, EARS, NOSE, THROAT: Moist buccal mucosa. Head is atraumatic, normocephalic. Hears conversational speech. No nasal drainage. NECK: Supple. No JV distention. No thyroidomegaly. RESPIRATORY: Non-labored respirations and equal bilateral excursions. No gross wheezes. BREAST: Left breast with subcutaneous ulceration and packing. Right breast with swelling without redness swelling noted along the right medial inferior breast. Transverse incision along the right breast with 2-0 Prolene central breast. No drainage. CARDIOVASCULAR: 2+ radial pulses. ABDOMEN: Nontender LYMPH: No neck lymphadenopathy. MUSCULOSKELETAL: No clubbing cyanosis SKIN: Warm and well perfused with good skin turgor. NEUROLOGIC: Cranial nerves II through XII grossly intact. No focal or lateralizing signs. PSYCH: Appropriate affect. Alert and oriented to person, place and time. Displays appropriate insight. CLINCAL LABS: Reviewed. WBC over 19,000. Hemoglobin 11.7. LFTs elevated IMAGING: Independently reviewed. Ultrasound of the right breast demonstrates small fluid collection without moderate debris. RADIOLOGY: Report reviewed ultrasound right breast demonstrate a 2 x 2 centimeter fluid collection seroma versus abscess RECORDS: previous old records reviewed from 01/03/2023 ASSESSMENT: 1. Sepsis 2. Left breast cancer status post bilateral mastectomy with reconstruction 3. Infected seroma PLAN: 1. Continue IV antibiotics with vancomycin. Recommend consultation infectious disease. 2. I personally discuss case with Dr. Albert with recommendation follow up with plastic surgery 3. Conference call with patient and her plastic surgeon Dr. Mike over 15 minutes performed. Options including removal of tissue health information coder described versus conservative management with IV antibiotics. 4. I discussed case with Dr. Mike where conservative management is feasible as patient is clinically responding of antibiotics. 5. As fluid collection is extremely small, for interventional radiology drainage. 6. At this time, patient is responding to IV antibiotics. 7. No blood pressure IVs and left arm due to left axilla with biopsy Care plan described with the patient which she was agreeable with plan of care Thank you for this kind consultation. Past Medical History Past Medical History: No Reported History, Cancer Additional Past Medical History / Comment(s): breast cancer current History of Any Multi-Drug Resistant Organisms: None Reported Past Surgical History: No Surgical Hx Reported Additional Past Surgical History / Comment(s): urethral mass removed. Right breast biopsy 2019 left breast biopsy Past Anesthesia/Blood Transfusion Reactions: No Reported Reaction Past Psychological History: Anxiety, Depression Smoking Status: Former smoker Past Alcohol Use History: None Reported Additional Past Alcohol Use History / Comment(s): quit november 2022, smoked 4 yrs prior Past Drug Use History: None Reported Additional Drug Use History / Comment(s): mj for nausea when needed, refrain 24 hours to surgery Medications and Allergies Home Medications Medication Instructions Recorded Confirmed Type traZODone HCL [Desyrel] 50 - 75 mg PO HS PRN 10/18/22 02/18/23 History Brexpiprazole [Rexulti] 1 mg PO HS 12/23/22 02/18/23 History Escitalopram [Lexapro] 20 mg PO DAILY 12/23/22 02/18/23 History hydrOXYzine pamoate [Vistaril] 25 mg PO BID PRN 12/23/22 02/18/23 History OLANZapine [ZyPREXA] 2.5 mg PO HS 02/18/23 02/18/23 History Ondansetron [Zofran] 4 mg PO Q4H PRN 02/18/23 02/18/23 History Allergies Allergy/AdvReac Type Severity Reaction Status Date / Time No Known Allergies Allergy Verified 02/18/23 07:43 Surgical - Exam Vital Signs Temp Pulse Resp BP Pulse Ox 102.4 F H 124 H 18 107/69 98 02/17/23 22:24 02/17/23 22:24 02/17/23 22:24 02/17/23 22:24 02/17/23 22:24 Results - Labs 02/17/23 23:08 02/17/23 23:08 Abnormal Lab Results - Last 24 Hours (Table) 02/17/23 02/17/23 02/17/23 Range/Units 23:08 23:08 23:30 WBC 19.0 H (3.8-10.6) k/uL Neutrophils # (Manual) 15.30 H (1.3-7.7) k/uL Monocytes # (Manual) 1.14 H (0-1.0) k/uL Metamyelocytes # (Man) 0.38 H (0) k/uL Sodium 135 L (137-145) mmol/L Glucose 103 H (74-99) mg/dL AST 43 H (14-36) U/L ALT 79 H (4-34) U/L Urine Blood Trace H (Negative) Diabetes panel 02/17/23 Range/Units 23:08 Sodium 135 L (137-145) mmol/L Potassium 4.1 (3.5-5.1) mmol/L Chloride 100 (98-107) mmol/L Carbon Dioxide 28 (22-30) mmol/L BUN 7 (7-17) mg/dL Creatinine 0.71 (0.52-1.04) mg/dL Glucose 103 H (74-99) mg/dL Calcium 8.8 (8.4-10.2) mg/dL AST 43 H (14-36) U/L ALT 79 H (4-34) U/L Alkaline Phosphatase 75 (38-126) U/L Total Protein 6.7 (6.3-8.2) g/dL Albumin 3.9 (3.5-5.0) g/dL Calcium panel 02/17/23 Range/Units 23:08 Calcium 8.8 (8.4-10.2) mg/dL Albumin 3.9 (3.5-5.0) g/dL Pituitary panel 02/17/23 Range/Units 23:08 Sodium 135 L (137-145) mmol/L Potassium 4.1 (3.5-5.1) mmol/L Chloride 100 (98-107) mmol/L Carbon Dioxide 28 (22-30) mmol/L BUN 7 (7-17) mg/dL Creatinine 0.71 (0.52-1.04) mg/dL Glucose 103 H (74-99) mg/dL Calcium 8.8 (8.4-10.2) mg/dL Adrenal panel 02/17/23 Range/Units 23:08 Sodium 135 L (137-145) mmol/L Potassium 4.1 (3.5-5.1) mmol/L Chloride 100 (98-107) mmol/L Carbon Dioxide 28 (22-30) mmol/L BUN 7 (7-17) mg/dL Creatinine 0.71 (0.52-1.04) mg/dL Glucose 103 H (74-99) mg/dL Calcium 8.8 (8.4-10.2) mg/dL Total Bilirubin 0.6 (0.2-1.3) mg/dL AST 43 H (14-36) U/L ALT 79 H (4-34) U/L Alkaline Phosphatase 75 (38-126) U/L Total Protein 6.7 (6.3-8.2) g/dL Albumin 3.9 (3.5-5.0) g/dL
--- NOTE | 2023-02-18 15:57 | P.CONS ---
History of Present Illness - Reason for Consult Consult date: 02/18/23 hx breast cancer, breast abscess Requesting physician: Ady Oneil - Chief Complaint breast abscess, fever - History of Present Illness Patient is a 32-year-old female with a significant history of invasive ductal carcinoma. She is a patient of Dr. Lu. She had bilateral mastectomy in December 2022. She has completed her first cycle of Taxotere and Cytoxan on 02/07/2023. Patient reports yesterday her right breast became painful and swollen that progressed throughout the day, and then began to develop fever and chills last night which caused her to present to the ER for further evaluation. Upon arrival patient had a temperature of 102.4. Ultrasound of the right breast showed a 2.2 x 0.7 x 1.0 cm abscess versus seroma. Patient was started on vancomycin. ID and surgery have been consulted. Of note patient was being treated for left breast wound by her surgeon and finished oral Keflex yesterday. Patient states that left breast wound is healing well and has decreased purulent drainage. Initial labs showed a hemoglobin of 11.7 and WBC 19,000. Review of Systems 10 point ROS is negative except as stated in the HPI Past Medical History Past Medical History: No Reported History, Cancer Additional Past Medical History / Comment(s): breast cancer current History of Any Multi-Drug Resistant Organisms: None Reported Past Surgical History: No Surgical Hx Reported Additional Past Surgical History / Comment(s): urethral mass removed. Right breast biopsy 2019 left breast biopsy Past Anesthesia/Blood Transfusion Reactions: No Reported Reaction Past Psychological History: Anxiety, Depression Smoking Status: Former smoker Past Alcohol Use History: None Reported Additional Past Alcohol Use History / Comment(s): quit november 2022, smoked 4 yrs prior Past Drug Use History: None Reported Additional Drug Use History / Comment(s): mj for nausea when needed, refrain 24 hours to surgery Medications and Allergies Home Medications Medication Instructions Recorded Confirmed Type traZODone HCL [Desyrel] 50 - 75 mg PO HS PRN 10/18/22 02/18/23 History Brexpiprazole [Rexulti] 1 mg PO HS 12/23/22 02/18/23 History Escitalopram [Lexapro] 20 mg PO DAILY 12/23/22 02/18/23 History hydrOXYzine pamoate [Vistaril] 25 mg PO BID PRN 12/23/22 02/18/23 History OLANZapine [ZyPREXA] 2.5 mg PO HS 02/18/23 02/18/23 History Ondansetron [Zofran] 4 mg PO Q4H PRN 02/18/23 02/18/23 History Allergies Allergy/AdvReac Type Severity Reaction Status Date / Time No Known Allergies Allergy Verified 02/18/23 07:43 Physical Exam Vitals: Vital Signs Temp Pulse Pulse Resp BP BP Pulse Ox 02/18/23 07:41 99.8 F H 100 18 112/71 99 02/18/23 02:01 95 02/18/23 01:58 98.4 F 92 18 121/75 95 02/17/23 23:53 100.7 F H 102 H 18 96 02/17/23 22:24 102.4 F H 124 H 18 107/69 98 Intake and Output 02/17/23 02/18/23 02/18/23 22:59 06:59 14:59 Intake Total 200 Balance 200 Intake: Oral 200 Other: Voiding Method Toilet # Voids 2 Weight 78.925 kg 78.925 kg - Constitutional General appearance: average body habitus, no acute distress - EENT Eyes: anicteric sclerae, EOMI ENT: hearing grossly normal - Respiratory breathing is even and unlabored - Cardiovascular Skin is warm and dry - Integumentary right breast edema noted, greater on medial aspect, with warmth and tenderness noted - Neurologic Neurologic: CNII-XII intact - Musculoskeletal Musculoskeletal: strength equal bilaterally - Psychiatric Psychiatric: A&O x's 3, appropriate affect, intact judgment & insight Results CBC & Chem 7: 02/17/23 23:08 02/17/23 23:08 Labs: Abnormal Lab Results - Last 24 Hours (Table) 02/17/23 02/17/23 02/17/23 Range/Units 23:08 23:08 23:30 WBC 19.0 H (3.8-10.6) k/uL Neutrophils # (Manual) 15.30 H (1.3-7.7) k/uL Monocytes # (Manual) 1.14 H (0-1.0) k/uL Metamyelocytes # (Man) 0.38 H (0) k/uL Sodium 135 L (137-145) mmol/L Glucose 103 H (74-99) mg/dL AST 43 H (14-36) U/L ALT 79 H (4-34) U/L Urine Blood Trace H (Negative) Comments: breast US reviewed Assessment and Plan (1) Breast abscess Current Visit: Yes Status: Acute Priority: High Code(s): N61.1 - ABSCESS OF THE BREAST AND NIPPLE SNOMED Code(s): 79559196 (2) Breast cancer Current Visit: Yes Status: Acute Code(s): C50.919 - MALIGNANT NEOPLASM OF UNSP SITE OF UNSPECIFIED FEMALE BREAST SNOMED Code(s): 668993649 Plan: Breast abscess: -Ultrasound of the right breast showed a 2.2 x 0.7 x 1.0 cm abscess versus seroma. Patient was started on vancomycin. -ID and surgery have been consulted. Plan for continuation of IV abx -WBC counts stable, 19,000 today -Will defer to ID/surgery for management Breast cancer: -Hx grade 2,invasive ductal carcinoma, ER+, HER2/IRVIN negative -Bilateral masectomy 2022 -S/p completion cycle 1 of Taxotere and Cytoxan on 02/07/2023. Cycle 2 scheduled for 02/28. F/u in clinic scheduled 02/24. Will reevaluate patient at time before progressing to cycle 2. Pt updated on POC attests: I have performed H&P and developed impression and plan of care for patient, discussed with dictator. I agree with dictated note, documented as a scribe
[2023-02-18] MEDS: VANCOMYCIN 1,250 MG in SODIUM CHLORIDE 0.9% 250 ML IVPB SCH (16:06)
[2023-02-18] MEDS: OLANZapine 2.5 MG TAB PO SCH (20:47)
[2023-02-18] MEDS: Brexpiprazole [Rexulti] 1 MG Tablet PO SCH (20:48)
--- NOTE | 2023-02-18 21:09 | P.CONS ---
History of Present Illness - Reason for Consult Consult date: 02/18/23 - History of Present Illness Patient is a 32-year-old female with a past medical history significant for left breast cancer in this patient who is status post bilateral mastectomy and reconstructive surgery done in December 2022 and the patient has completed her fourth cycle of chemotherapy on 02/07/2023 patient presenting to the ER at [facility] yesterday for evaluation of right breast becoming more painful progressing swelling throughout the day patient describing pain to be more of a full sensation intensity 7-8 out of 10 and no radiation, patient did have some chills and on presentation to the hospital patient did have a fever of 102.4 F patient did have white count 19,000 with a left shift kidney function has been normal liver exams are normal urine was negative patient did have a breast ultrasound approximately 2.2 x 0.71 cm fluid collection right breast concerning for possible abscess patient was started on vancomycin infectious disease was consulted for further management of antibiotic therapy Past Medical History Past Medical History: No Reported History, Cancer Additional Past Medical History / Comment(s): breast cancer current History of Any Multi-Drug Resistant Organisms: None Reported Past Surgical History: No Surgical Hx Reported Additional Past Surgical History / Comment(s): urethral mass removed. Right breast biopsy 2019 left breast biopsy Past Anesthesia/Blood Transfusion Reactions: No Reported Reaction Past Psychological History: Anxiety, Depression Smoking Status: Former smoker Past Alcohol Use History: None Reported Additional Past Alcohol Use History / Comment(s): quit november 2022, smoked 4 yrs prior Past Drug Use History: None Reported Additional Drug Use History / Comment(s): mj for nausea when needed, refrain 24 hours to surgery Medications and Allergies Home Medications Medication Instructions Recorded Confirmed Type traZODone HCL [Desyrel] 50 - 75 mg PO HS PRN 10/18/22 02/18/23 History Brexpiprazole [Rexulti] 1 mg PO HS 12/23/22 02/18/23 History Escitalopram [Lexapro] 20 mg PO DAILY 12/23/22 02/18/23 History hydrOXYzine pamoate [Vistaril] 25 mg PO BID PRN 12/23/22 02/18/23 History OLANZapine [ZyPREXA] 2.5 mg PO HS 02/18/23 02/18/23 History Ondansetron [Zofran] 4 mg PO Q4H PRN 02/18/23 02/18/23 History Allergies Allergy/AdvReac Type Severity Reaction Status Date / Time No Known Allergies Allergy Verified 02/18/23 07:43 Physical Exam Vitals: Vital Signs Temp Pulse Pulse Resp BP BP Pulse Ox 02/18/23 07:41 99.8 F H 100 18 112/71 99 02/18/23 02:01 95 02/18/23 01:58 98.4 F 92 18 121/75 95 02/17/23 23:53 100.7 F H 102 H 18 96 02/17/23 22:24 102.4 F H 124 H 18 107/69 98 Intake and Output 02/17/23 02/18/23 02/18/23 22:59 06:59 14:59 Intake Total 200 Balance 200 Intake: Oral 200 Other: Voiding Method Toilet # Voids 2 Weight 78.925 kg 78.925 kg Results CBC & Chem 7: 02/17/23 23:08 02/17/23 23:08 Labs: Abnormal Lab Results - Last 24 Hours (Table) 02/17/23 02/17/23 02/17/23 Range/Units 23:08 23:08 23:30 WBC 19.0 H (3.8-10.6) k/uL Neutrophils # (Manual) 15.30 H (1.3-7.7) k/uL Monocytes # (Manual) 1.14 H (0-1.0) k/uL Metamyelocytes # (Man) 0.38 H (0) k/uL Sodium 135 L (137-145) mmol/L Glucose 103 H (74-99) mg/dL AST 43 H (14-36) U/L ALT 79 H (4-34) U/L Urine Blood Trace H (Negative) Assessment and Plan Plan: 1patient is in the hospital with sepsis and this went to have a fever elevated white count source is right breast abscess in this patient who did have a history of left breast cancer status post bilateral mastectomy and tissue sports medicine specialist placement and has recently completed her chemotherapy with ultrasound suggestive for small abscess to the right breast area 2-we will consult IR for IR drainage of this fluid collection which should be sent for culture 3-continue with vancomycin pharmacy to dose while watching her kidney function closely 4-we will recheck inflammatory markers and CBC with a.m. lab We will follow on clinical condition and cultures to further adjust medication if needed Thank you for this consultation we will follow the patient along with you Time with Patient: Greater than 30
[2023-02-19] MEDS: VANCOMYCIN 1,250 MG in SODIUM CHLORIDE 0.9% 250 ML IVPB SCH ×3 (03:36→23:35)
[2023-02-19 07:04] LABS: ALT 49 U/L (4-34); AST 24 U/L (14-36); African American GFR (CKD) >90 (>60 ml/min/1.73 sqM); Albumin 3.1 g/dL (3.5-5.0); Albumin/Globulin Ratio 1.2; Alkaline Phosphatase 57 U/L (38-126); Anion Gap 5 mmol/L; Blood Urea Nitrogen 4 mg/dL (7-17); Calcium 7.8 mg/dL (8.4-10.2); Carbon Dioxide 23 mmol/L (22-30); Chloride 109 mmol/L (98-107); Globulin 2.6 g/dL; Glucose 104 mg/dL (74-99); Non-African American GFR(CKD) >90 (>60 ml/min/1.73 sqM); Sodium 137 mmol/L (137-145); Total Bilirubin 0.3 mg/dL (0.2-1.3); Total Protein 5.7 g/dL (6.3-8.2)
[2023-02-19 07:16] LABS: C Reactive Protein 12.9 mg/dL (<1.0)
[2023-02-19] MEDS: ESCITALOPRAM 20 MG TAB PO SCH (08:46)
[2023-02-19] MEDS ORDERED: ESCITALOPRAM 20 MG TAB PO SCH (09:00)
[2023-02-19 09:50] LABS: HCT 32.2 % (37.2-46.3); HGB 10.3 g/dL (12.0-15.0); MCH 29.9 pg (27.0-32.0); MCV 93.3 fL (80.0-97.0); Mean Platelet Volume 10.5 fL (9.5-12.2); NRBC Per 100 WBC 0.4 /100 WBCS (0.0-0.0); Platelet Count 161 X 10*3/uL (140-440); RBC 3.45 X 10*6/uL (4.10-5.20); RDW 13.5 % (11.5-14.5); WBC 13.25 X 10*3/uL (4.50-10.00)
[2023-02-19 10:26] LABS: Basophils # (M) 0 X 10*3/uL (0.00-0.10); Eosinophils # (M) 0 X 10*3/uL (0.04-0.35); Lymphocytes # (M) 1.06 X 10*3/uL (0.90-5.00); Metamyelocytes % 1 % (0-0); Monocytes # (M) 1.06 X 10*3/uL (0.20-1.00); Neutrophils % (M) 83 %; RBC Morphology NORMAL
--- NOTE | 2023-02-19 11:05 | P.PN ---
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 Since admission, she has moderate improvement. WBC count improved from over 19,012 or 13,000. No further fevers in 24 hours. She reports clinically feeling better. She still reports swelling along the right breast however no redness. REVIEW OF ORGAN SYSTEMS: CONSTITUTIONAL: No further fevers in 24 hours PSYCHIATRIC: Has anxiety and depression BREAST: Left breast cancer. Bilateral mastectomy. PHYSICAL EXAM: VITALS: Reviewed CONSTITUTIONAL: Well developed and in no acute distress. EYES: Conjuctivae without sclera icterus. Extraocular movements grossly intact. HEAD, EARS, NOSE, THROAT: Moist buccal mucosa. Head is atraumatic, normoc ephalic. Hears conversational speech. No nasal drainage. RESPIRATORY: Non-labored respirations and equal bilateral excursions. No gross wheezes. BREAST: Right breast with swelling without redness, swelling noted along the right medial inferior breast, stable. No drainage. CARDIOVASCULAR: 2+ radial pulses. ABDOMEN: Nontender MUSCULOSKELETAL: No clubbing cyanosis SKIN: Warm and well perfused with good skin turgor. NEUROLOGIC: Cranial nerves II through XII grossly intact. No focal or latera lizing signs. PSYCH: Appropriate affect. Alert and oriented to person, place and time. Displays appropriate insight. CLINCAL LABS: Reviewed. WBC over 19,000, now over 13,000 ASSESSMENT: 1. Sepsis, resolving 2. Left breast cancer status post bilateral mastectomy with reconstruction 3. Infected seroma 4. Right breast swelling PLAN: 1. Clinically, patient reports feeling better today. Continue with IV antibiotics conservative management 2. No additional surgical intervention needed at this time as patient is clinically responding 3. Care plan discussed with patient and all questions addressed 4. Patient's plastic surgeon, Dr Mike, also informed with continued care plan Objective - Vital Signs Vital signs: Vital Signs Temp 98.1 F 02/19/23 07:44 Pulse 86 02/19/23 07:44 Resp 18 02/19/23 07:44 BP 98/62 02/19/23 07:44 Pulse Ox 97 02/19/23 07:44 FiO2 Intake & Output 02/18/23 02/19/23 02/19/23 18:59 06:59 18:59 Intake Total 490 Balance 490 Intake: Intake, IV Titration 250 Amount Vancomycin 1,250 mg In 250 Sodium Chloride 0.9% 250 ml @ 125 mls/hr IVPB Q12H [facility] Rx#:[id number] Oral 240 Other: Voiding Method Toilet Toilet # Voids 2 1 0 - Labs CBC & Chem 7: 02/19/23 06:20 02/19/23 06:20 Labs: Abnormal Lab Results - Last 24 Hours (Table) 02/19/23 02/19/23 Range/Units 06:20 06:20 WBC 13.25 H (4.50-10.00) X 10*3/uL RBC 3.45 L (4.10-5.20) X 10*6/uL Hgb 10.3 L (12.0-15.0) g/dL Hct 32.2 L (37.2-46.3) % Absolute Nucleated RBC 0.05 H (0.00-0.00) X 10*3/uL Metamyelocytes % 1 H (0-0) % Neutrophils # (Manual) 11.00 H (2.00-8.90) X 10*3/uL Monocytes # (Manual) 1.06 H (0.20-1.00) X 10*3/uL Eosinophils # (Manual) 0 L (0.04-0.35) X 10*3/uL NRBC/100 WBC Diff 0.4 H (0.0-0.0) /100 WBCS Chloride 109 H (98-107) mmol/L BUN 4 L (7-17) mg/dL Glucose 104 H (74-99) mg/dL Calcium 7.8 L (8.4-10.2) mg/dL ALT 49 H (4-34) U/L C-Reactive Protein 12.9 H (<1.0) mg/dL Total Protein 5.7 L (6.3-8.2) g/dL Albumin 3.1 L (3.5-5.0) g/dL Microbiology - Last 24 Hours (Table) 02/17/23 23:56 Blood Culture - Preliminary Blood No Growth after 24 hours 02/17/23 23:08 Blood Culture - Preliminary Blood No Growth after 24 hours
--- NOTE | 2023-02-19 14:23 | P.PN ---
Subjective Progress Note Date: 02/19/23 Principal diagnosis: Breast cancer -No acute events overnight -Notes having significant improvement in erythema and tenderness of the right breast Objective - Vital Signs Vital signs: Vital Signs Temp 98.1 F 02/19/23 07:44 Pulse 86 02/19/23 07:44 Resp 18 02/19/23 07:44 BP 98/62 02/19/23 07:44 Pulse Ox 97 02/19/23 07:44 FiO2 Intake & Output 02/18/23 02/19/23 02/19/23 18:59 06:59 18:59 Intake Total 490 Balance 490 Intake: Intake, IV Titration 250 Amount Vancomycin 1,250 mg In 250 Sodium Chloride 0.9% 250 ml @ 125 mls/hr IVPB Q12H [facility] Rx#:[id number] Oral 240 Other: Voiding Method Toilet Toilet # Voids 2 1 0 - Constitutional General appearance: Present: cooperative, no acute distress - EENT Eyes: Present: EOMI - Respiratory Respiratory: bilateral: CTA - Cardiovascular Rhythm: regular - Gastrointestinal General gastrointestinal: Present: soft. Absent: distended - Integumentary Integumentary Comment(s): Right breast tenderness with mild erythema - Neurologic Neurologic: Present: CNII-XII intact. Absent: focal deficits - Labs CBC & Chem 7: 02/19/23 06:20 02/19/23 06:20 Labs: Abnormal Lab Results - Last 24 Hours (Table) 02/19/23 02/19/23 Range/Units 06:20 06:20 WBC 13.25 H (4.50-10.00) X 10*3/uL RBC 3.45 L (4.10-5.20) X 10*6/uL Hgb 10.3 L (12.0-15.0) g/dL Hct 32.2 L (37.2-46.3) % Absolute Nucleated RBC 0.05 H (0.00-0.00) X 10*3/uL Metamyelocytes % 1 H (0-0) % Neutrophils # (Manual) 11.00 H (2.00-8.90) X 10*3/uL Monocytes # (Manual) 1.06 H (0.20-1.00) X 10*3/uL Eosinophils # (Manual) 0 L (0.04-0.35) X 10*3/uL NRBC/100 WBC Diff 0.4 H (0.0-0.0) /100 WBCS Chloride 109 H (98-107) mmol/L BUN 4 L (7-17) mg/dL Glucose 104 H (74-99) mg/dL Calcium 7.8 L (8.4-10.2) mg/dL ALT 49 H (4-34) U/L C-Reactive Protein 12.9 H (<1.0) mg/dL Total Protein 5.7 L (6.3-8.2) g/dL Albumin 3.1 L (3.5-5.0) g/dL Microbiology - Last 24 Hours (Table) 02/17/23 23:56 Blood Culture - Preliminary Blood No Growth after 24 hours 02/17/23 23:08 Blood Culture - Preliminary Blood No Growth after 24 hours Assessment and Plan (1) Breast abscess Current Visit: Yes Status: Acute Priority: High Code(s): N61.1 - ABSCESS OF THE BREAST AND NIPPLE SNOMED Code(s): 94583536 (2) Breast cancer Current Visit: Yes Status: Acute Code(s): C50.919 - MALIGNANT NEOPLASM OF UNSP SITE OF UNSPECIFIED FEMALE BREAST SNOMED Code(s): 146214452 Plan: Breast abscess vs infected seroma: -Ultrasound of the right breast showed a 2.2 x 0.7 x 1.0 cm abscess versus seroma. 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 Cycle 2 scheduled for 02/28. F/u in clinic scheduled 02/24. Will reevaluate patient at time before progressing to cycle 2. Pt updated on POC
[2023-02-19] MEDS ORDERED: VANCOMYCIN TROUGH DUE 1 EACH MISC MISCELLANE ONE (15:00)
--- NOTE | 2023-02-19 15:12 | P.PN ---
Subjective Progress Note Date: 02/19/23 patient is a 32-year-old lady with history of breast cancer presented to the ER because of fever ,chills and right breast pain. Patient is currently undergoing chemotherapy. Patient has been having fever and chills at home, denies any recent trauma to her breast. Denies any chest pain or shortness of breath. Patient was seen at her oncologist office and blood work done there showed patient to have elevated white count, they referred her to the ER. In the ER, initial lab work done showed WBC of 19, hemoglobin 11.7, MCV 90.4 platelet count 175, sodium 135, potassium 4.1, chloride 100, BUN 7, creatinine 0.71. Patient had a right breast ultrasound done that showed 0.2 bites 0.7 x 1 cm fluid collection in the right breast in the area of pain. This is located within 3 mm of the skin surface. Consider small abscess or seroma Patient admitted for further evaluation and treatment 02/19. Patient seen and examined. States right breast pain has improved, redness also improving. Denies any fevers or chills REVIEW OF SYSTEMS: CONSTITUTIONAL: No fever, no malaise,. CARDIOVASCULAR: No chest pain, no palpitations, no syncope. PULMONARY: No shortness of breath, no cough, GASTROINTESTINAL: No diarrhea, no nausea, no vomiting, no abdominal pain. NEUROLOGICAL: No headaches, no weakness, PHYSICAL EXAMINATION: GENERAL: The patient is alert and oriented x3, not in any acute distress. Well developed, well nourished. HEENT: Pupils are round and equally reacting to light. EOMI. No scleral icterus. No conjunctival pallor. Normocephalic, atraumatic. No pharyngeal erythema. No thyromegaly. CARDIOVASCULAR: S1 and S2 present. No murmurs, rubs, or gallops. PULMONARY: Chest is clear to auscultation, no wheezing or crackles. ABDOMEN: Soft, nontender, nondistended, normoactive bowel sounds. No palpable organomegaly. MUSCULOSKELETAL: No joint swelling or deformity. EXTREMITIES: No cyanosis, clubbing, or pedal edema. NEUROLOGICAL: Gross neurological examination did not reveal any focal deficits. SKIN: No rashes. Right breast tenderness improved, erythema improving (patient examined in the presence of cruise consultant Assessment and plan Sepsis Right breast abcess History of Left breast cancer status post bilateral mastectomy with reconstruction Leukocytosis Plan; Monitor vital signs Monitor CBC Monitor CMP Follow-up blood cultures Continue IV vancomycin Surgery evaluated the patient recommended conservative treatment with ant ibiotics, no need for any drainage IR consulted. Follow-up in ID recs Objective - Vital Signs Vital signs: Vital Signs Temp 98 F 02/19/23 14:00 Pulse 82 02/19/23 14:00 Resp 18 02/19/23 14:00 BP 95/67 02/19/23 14:00 Pulse Ox 97 02/19/23 14:00 FiO2 Intake & Output 02/18/23 02/19/23 02/19/23 18:59 06:59 18:59 Intake Total 490 Balance 490 Intake: Intake, IV Titration 250 Amount Vancomycin 1,250 mg In 250 Sodium Chloride 0.9% 250 ml @ 125 mls/hr IVPB Q12H [facility] Rx#:[id number] Oral 240 Other: Voiding Method Toilet Toilet # Voids 2 1 0 - Labs CBC & Chem 7: 02/19/23 06:20 02/19/23 06:20 Labs: Abnormal Lab Results - Last 24 Hours (Table) 02/19/23 02/19/23 Range/Units 06:20 06:20 WBC 13.25 H (4.50-10.00) X 10*3/uL RBC 3.45 L (4.10-5.20) X 10*6/uL Hgb 10.3 L (12.0-15.0) g/dL Hct 32.2 L (37.2-46.3) % Absolute Nucleated RBC 0.05 H (0.00-0.00) X 10*3/uL Metamyelocytes % 1 H (0-0) % Neutrophils # (Manual) 11.00 H (2.00-8.90) X 10*3/uL Monocytes # (Manual) 1.06 H (0.20-1.00) X 10*3/uL Eosinophils # (Manual) 0 L (0.04-0.35) X 10*3/uL NRBC/100 WBC Diff 0.4 H (0.0-0.0) /100 WBCS Chloride 109 H (98-107) mmol/L BUN 4 L (7-17) mg/dL Glucose 104 H (74-99) mg/dL Calcium 7.8 L (8.4-10.2) mg/dL ALT 49 H (4-34) U/L C-Reactive Protein 12.9 H (<1.0) mg/dL Total Protein 5.7 L (6.3-8.2) g/dL Albumin 3.1 L (3.5-5.0) g/dL Microbiology - Last 24 Hours (Table) 02/17/23 23:56 Blood Culture - Preliminary Blood No Growth after 24 hours 02/17/23 23:08 Blood Culture - Preliminary Blood No Growth after 24 hours
--- NOTE | 2023-02-19 15:53 | P.PN ---
Subjective Progress Note Date: 02/19/23 Principal diagnosis: Right breast abscess Patient is a 32 year old female with a past medical history significant for left breast cancer in this patient who was status post bilateral mastectomy and has received chemo presenting to the hospital with a right breast pain swelling fever has been diagnosed with a right breast abscess on the ultrasound, CT-guided drainage was ordered which was canceled by surgery after discussion of the case with her plastic surgeon On today's evaluation that is 02/19/2023, the patient fever pattern has improved and the patient is afebrile this morning patient is feeling slightly better overall pressure to the right breast has decreased in intensity no chest pain shortness of breath or cough no abdominal pain or diarrhea Objective - Vital Signs Vital signs: Vital Signs Temp 98 F 02/19/23 14:00 Pulse 82 02/19/23 14:00 Resp 18 02/19/23 14:00 BP 95/67 02/19/23 14:00 Pulse Ox 97 02/19/23 14:00 FiO2 Intake & Output 02/18/23 02/19/23 02/19/23 18:59 06:59 18:59 Intake Total 490 Balance 490 Intake: Intake, IV Titration 250 Amount Vancomycin 1,250 mg In 250 Sodium Chloride 0.9% 250 ml @ 125 mls/hr IVPB Q12H [facility] Rx#:[id number] Oral 240 Other: Voiding Method Toilet Toilet # Voids 2 1 0 - Exam GENERAL DESCRIPTION: Middle-aged female lying in bed in no distress RESPIRATORY SYSTEM: Unlabored breathing , decreased breath sounds at bases HEART: S1 S2 regular rate and rhythm , ABDOMEN: Soft , no tenderness EXTREMITIES: No edema feet - Labs CBC & Chem 7: 02/19/23 06:20 02/19/23 06:20 Labs: Abnormal Lab Results - Last 24 Hours (Table) 02/19/23 02/19/23 Range/Units 06:20 06:20 WBC 13.25 H (4.50-10.00) X 10*3/uL RBC 3.45 L (4.10-5.20) X 10*6/uL Hgb 10.3 L (12.0-15.0) g/dL Hct 32.2 L (37.2-46.3) % Absolute Nucleated RBC 0.05 H (0.00-0.00) X 10*3/uL Metamyelocytes % 1 H (0-0) % Neutrophils # (Manual) 11.00 H (2.00-8.90) X 10*3/uL Monocytes # (Manual) 1.06 H (0.20-1.00) X 10*3/uL Eosinophils # (Manual) 0 L (0.04-0.35) X 10*3/uL NRBC/100 WBC Diff 0.4 H (0.0-0.0) /100 WBCS Chloride 109 H (98-107) mmol/L BUN 4 L (7-17) mg/dL Glucose 104 H (74-99) mg/dL Calcium 7.8 L (8.4-10.2) mg/dL ALT 49 H (4-34) U/L C-Reactive Protein 12.9 H (<1.0) mg/dL Total Protein 5.7 L (6.3-8.2) g/dL Albumin 3.1 L (3.5-5.0) g/dL Microbiology - Last 24 Hours (Table) 02/17/23 23:56 Blood Culture - Preliminary Blood No Growth after 24 hours 02/17/23 23:08 Blood Culture - Preliminary Blood No Growth after 24 hours Assessment and Plan (1) Breast abscess Current Visit: Yes Status: Acute Priority: High Code(s): N61.1 - ABSCESS OF THE BREAST AND NIPPLE SNOMED Code(s): 19765033 (2) Sepsis Current Visit: Yes Status: Acute Code(s): A41.9 - SEPSIS, UNSPECIFIED ORGANISM SNOMED Code(s): 61423308 Plan: 1patient is in the hospital with sepsis and this went to have a fever elevated white count source is right breast abscess in this patient who did have a history of left breast cancer status post bilateral mastectomy and tissue button sewer placement and has recently completed her chemotherapy with ultrasound suggestive for small abscess to the right breast area 2-consult IR for IR drainage of this fluid collection has been canceled 3-patient to continue with vancomycin pharmacy to dose while watching her kidney function closely Multiple questions concerned were answered in Layman terms Time with Patient: Less than 30
[2023-02-19] MEDS: OLANZapine 2.5 MG TAB PO SCH (20:33)
[2023-02-19] MEDS: Brexpiprazole [Rexulti] 1 MG Tablet PO SCH (20:34)
[2023-02-20] MEDS: ESCITALOPRAM 20 MG TAB PO SCH (08:29)
[2023-02-20] MEDS: VANCOMYCIN 1,250 MG in SODIUM CHLORIDE 0.9% 250 ML IVPB SCH ×3 (08:29→23:56)
[2023-02-20 09:02] LABS: African American GFR (CKD) >90 (>60 ml/min/1.73 sqM); Non-African American GFR(CKD) >90 (>60 ml/min/1.73 sqM)
[2023-02-20 09:25] LABS: Basophils % (A) 0 %; Eosinophils % (A) 0 %; HCT 33.7 % (34.0-46.0); HGB 11.2 gm/dL (11.4-16.0); Lymphocytes % (A) 13 %; MCH 30.3 pg (25.0-35.0); MCHC 33.2 g/dL (31.0-37.0); MCV 91.3 fL (80.0-100.0); Mean Platelet Volume 8.7; Monocytes # (A) 0.4 k/uL (0-1.0); Monocytes % (A) 5 %; Neutrophils % (A) 79 %; Platelet Count 162 k/uL (150-450); RBC 3.69 m/uL (3.80-5.40); RDW 13.8 % (11.5-15.5); WBC 7.7 k/uL (3.8-10.6)
--- NOTE | 2023-02-20 14:32 | P.PN ---
Subjective Progress Note Date: 02/20/23 patient is a 32-year-old lady with history of breast cancer presented to the ER because of fever ,chills and right breast pain. Patient is currently undergoing chemotherapy. Patient has been having fever and chills at home, denies any recent trauma to her breast. Denies any chest pain or shortness of breath. Patient was seen at her oncologist office and blood work done there showed patient to have elevated white count, they referred her to the ER. In the ER, initial lab work done showed WBC of 19, hemoglobin 11.7, MCV 90.4 platelet count 175, sodium 135, potassium 4.1, chloride 100, BUN 7, creatinine 0.71. Patient had a right breast ultrasound done that showed 0.2 bites 0.7 x 1 cm fluid collection in the right breast in the area of pain. This is located within 3 mm of the skin surface. Consider small abscess or seroma Patient admitted for further evaluation and treatment 02/19. Patient seen and examined. States right breast pain has improved, redness also improving. Denies any fevers or chills 02/20 patient seen and examined. No acute issues overnight. Vital signs are temperature 97.7, heart rate 83, respirations 16, blood pressure 104/68. Leukocytosis is resolved. Possible discharge in next 24 hours REVIEW OF SYSTEMS: CONSTITUTIONAL: No fever, no malaise,. CARDIOVASCULAR: No chest pain, no palpitations, no syncope. PULMONARY: No shortness of breath, no cough, GASTROINTESTINAL: No diarrhea, no nausea, no vomiting, no abdominal pain. NEUROLOGICAL: No headaches, no weakness, PHYSICAL EXAMINATION: GENERAL: The patient is alert and oriented x3, not in any acute distress. Well developed, well nourished. HEENT: Pupils are round and equally reacting to light. EOMI. No scleral icterus. No conjunctival pallor. Normocephalic, atraumatic. No pharyngeal erythema. No thyromegaly. CARDIOVASCULAR: S1 and S2 present. No murmurs, rubs, or gallops. PULMONARY: Chest is clear to auscultation, no wheezing or crackles. ABDOMEN: Soft, nontender, nondistended, normoactive bowel sounds. No palpable organomegaly. MUSCULOSKELETAL: No joint swelling or deformity. EXTREMITIES: No cyanosis, clubbing, or pedal edema. NEUROLOGICAL: Gross neurological examination did not reveal any focal deficits. SKIN: No rashes. Right breast tenderness improved Assessment and plan Sepsis Right breast abcess History of Left breast cancer status post bilateral mastectomy with reconstruction Leukocytosis Plan; Monitor vital signs Monitor CBC Monitor CMP Follow-up blood cultures Continue IV vancomycin Surgery evaluated the patient recommended conservative treatment with antibiotics, no need for any drainage IR was initially consulted, later canceled as patient is clinically improving Follow-up in MD recs Objective - Vital Signs Vital signs: Vital Signs Temp 97.7 F 02/20/23 05:36 Pulse 83 02/20/23 05:36 Resp 16 02/20/23 05:36 BP 104/68 02/20/23 05:36 Pulse Ox 95 02/20/23 05:36 FiO2 Intake & Output 02/19/23 02/20/23 02/20/23 18:59 06:59 18:59 Intake Total 250 490 Balance 250 490 Intake: Intake, IV Titration 250 250 Amount Vancomycin 1,250 mg In 250 250 Sodium Chloride 0.9% 250 ml @ 125 mls/hr IVPB Q8HR [facility] Rx#:[id number] Oral 240 Other: Voiding Method Toilet # Voids 0 1 - Labs CBC & Chem 7: 02/20/23 07:12 02/20/23 07:12 Labs: Abnormal Lab Results - Last 24 Hours (Table) 02/19/23 Range/Units 06:20 WBC 13.25 H (4.50-10.00) X 10*3/uL RBC 3.45 L (4.10-5.20) X 10*6/uL Hgb 10.3 L (12.0-15.0) g/dL Hct 32.2 L (37.2-46.3) % Absolute Nucleated RBC 0.05 H (0.00-0.00) X 10*3/uL Metamyelocytes % 1 H (0-0) % Neutrophils # (Manual) 11.00 H (2.00-8.90) X 10*3/uL Monocytes # (Manual) 1.06 H (0.20-1.00) X 10*3/uL Eosinophils # (Manual) 0 L (0.04-0.35) X 10*3/uL NRBC/100 WBC Diff 0.4 H (0.0-0.0) /100 WBCS Microbiology - Last 24 Hours (Table) 02/17/23 23:56 Blood Culture - Preliminary Blood No Growth after 48 hours 02/17/23 23:08 Blood Culture - Preliminary Blood No Growth after 48 hours
[2023-02-20 16:08] VITALS: RESP 16
--- NOTE | 2023-02-20 16:59 | P.PN ---
Subjective Progress Note Date: 02/20/23 Principal diagnosis: Right breast abscess Patient is a 32 year old female with a past medical history significant for left breast cancer in this patient who was status post bilateral mastectomy and has received chemo presenting to the hospital with a right breast pain swelling fever has been diagnosed with a right breast abscess on the ultrasound, CT-guided drainage was ordered which was canceled by surgery after discussion of the case with her plastic surgeon On today's evaluation that is 02/20/2023, the patient remains to be morning, the patient discomfort/pressure to the right breast has decreased in intensity, the patient denies chest pain shortness of breath or cough no abdominal pain or diarrhea Objective - Vital Signs Vital signs: Vital Signs Temp 98.2 F 02/20/23 08:10 Pulse 84 02/20/23 08:10 Resp 17 02/20/23 08:10 BP 94/61 02/20/23 08:10 Pulse Ox 97 02/20/23 09:00 FiO2 Intake & Output 02/19/23 02/20/23 02/20/23 18:59 06:59 18:59 Intake Total 250 490 Balance 250 490 Intake: Intake, IV Titration 250 250 Amount Vancomycin 1,250 mg In 250 250 Sodium Chloride 0.9% 250 ml @ 125 mls/hr IVPB Q8HR [facility] Rx#:[id number] Oral 240 Other: Voiding Method Toilet # Voids 0 1 - Exam GENERAL DESCRIPTION: Middle-aged female up in the chair in no distress RESPIRATORY SYSTEM: Unlabored breathing , decreased breath sounds at bases HEART: S1 S2 regular rate and rhythm , ABDOMEN: Soft , no tenderness EXTREMITIES: No edema feet Right breast swelling and induration and tenderness is much improved - Labs CBC & Chem 7: 02/20/23 07:12 02/20/23 07:12 Labs: Abnormal Lab Results - Last 24 Hours (Table) 02/20/23 Range/Units 07:12 RBC 3.69 L (3.80-5.40) m/uL Hgb 11.2 L (11.4-16.0) gm/dL Hct 33.7 L (34.0-46.0) % Microbiology - Last 24 Hours (Table) 02/17/23 23:56 Blood Culture - Preliminary Blood No Growth after 48 hours 02/17/23 23:08 Blood Culture - Preliminary Blood No Growth after 48 hours Assessment and Plan (1) Breast abscess Current Visit: Yes Status: Acute Priority: High Code(s): N61.1 - ABSCESS OF THE BREAST AND NIPPLE SNOMED Code(s): 02364371 (2) Sepsis Current Visit: Yes Status: Acute Code(s): A41.9 - SEPSIS, UNSPECIFIED ORGANISM SNOMED Code(s): 90884314 Plan: 1patient is in the hospital with sepsis and this went to have a fever elevated white count source is right breast abscess in this patient who did have a history of left breast cancer 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
[2023-02-20] MEDS: OLANZapine 2.5 MG TAB PO SCH (20:10)
[2023-02-20] MEDS: Brexpiprazole [Rexulti] 1 MG Tablet PO SCH (20:10)
--- NOTE | 2023-02-20 21:41 | P.PN ---
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 She has no further fevers. She reports decreased swelling along the right breast. Pain well controlled. She feels well. REVIEW OF ORGAN SYSTEMS: CONSTITUTIONAL: No further fevers in 24 hours PSYCHIATRIC: Has anxiety and depression BREAST: Left breast cancer. Bilateral mastectomy. PHYSICAL EXAM: VITALS: Reviewed CONSTITUTIONAL: Well developed and in no acute distress. EYES: Conjuctivae without sclera icterus. Extraocular movements grossly intact. HEAD, EARS, NOSE, THROAT: Moist buccal mucosa. Head is atraumatic, normocephalic. Hears conversational speech. No nasal drainage. RESPIRATORY: Non-labored respirations and equal bilateral excursions. No gross wheezes. BREAST: No drainage. No erythema along the right lower inner quadrant. Breast swelling along the right greater than left. Dressing along the lateral dressing. CARDIOVASCULAR: 2+ radial pulses. ABDOMEN: Nontender MUSCULOSKELETAL: No clubbing cyanosis SKIN: Warm and well perfused with good skin turgor. NEUROLOGIC: Cranial nerves II through XII grossly intact. No focal or lateralizing signs. PSYCH: Appropriate affect. Alert and oriented to person, place and time. Displays appropriate insight. CLINCAL LABS: Reviewed. WBC over 19,000 on admission down to 7,700 ASSESSMENT: 1. Sepsis, resolving 2. Left breast cancer status post bilateral mastectomy with reconstruction 3. Infected seroma 4. Right breast swelling PLAN: 1. She has responded well to antibiotics. Her antibiotics has been adjusted from vancomycin to Zosyn 3 times daily 2. Clinically she responded well. Continue conservative management 3. Care plan reviewed and discussed with patient and the patient's plastic surgeon, Dr. Mike. 4. Disposition home with oral antibiotics including follow-up will plastic surgeon Objective - Vital Signs Vital signs: Vital Signs Temp 98.2 F 02/20/23 19:22 Pulse 71 02/20/23 19:22 Resp 16 02/20/23 20:00 BP 106/70 02/20/23 19:22 Pulse Ox 99 02/20/23 19:22 FiO2 Intake & Output 02/20/23 02/20/23 02/21/23 06:59 18:59 06:59 Intake Total 490 500 Balance 490 500 Intake: Intake, IV Titration 250 500 Amount Vancomycin 1,250 mg In 250 500 Sodium Chloride 0.9% 250 ml @ 125 mls/hr IVPB Q8HR [facility] Rx#:[id number] Oral 240 Other: Voiding Method Toilet Toilet # Voids 1 1 - Labs CBC & Chem 7: 02/20/23 07:12 02/20/23 07:12 Labs: Abnormal Lab Results - Last 24 Hours (Table) 02/20/23 Range/Units 07:12 RBC 3.69 L (3.80-5.40) m/uL Hgb 11.2 L (11.4-16.0) gm/dL Hct 33.7 L (34.0-46.0) % Microbiology - Last 24 Hours (Table) 02/17/23 23:56 Blood Culture - Preliminary Blood No Growth after 48 hours 02/17/23 23:08 Blood Culture - Preliminary Blood No Growth after 48 hours
[2023-02-21] MEDS ORDERED: VANCOMYCIN TROUGH DUE 1 EACH MISC MISCELLANE ONE (07:00)
[2023-02-21 08:09] LABS: ALT 38 U/L (4-34); AST 23 U/L (14-36); African American GFR (CKD) >90 (>60 ml/min/1.73 sqM); Albumin/Globulin Ratio 1.1; Alkaline Phosphatase 52 U/L (38-126); Anion Gap 7 mmol/L; Blood Urea Nitrogen 8 mg/dL (7-17); Calcium 8.3 mg/dL (8.4-10.2); Carbon Dioxide 23 mmol/L (22-30); Chloride 109 mmol/L (98-107); Globulin 2.7 g/dL; Glucose 96 mg/dL (74-99); Non-African American GFR(CKD) >90 (>60 ml/min/1.73 sqM); Potassium 4.2 mmol/L (3.5-5.1); Sodium 139 mmol/L (137-145); Total Bilirubin 0.3 mg/dL (0.2-1.3); Total Protein 5.7 g/dL (6.3-8.2)
[2023-02-21] MEDS: VANCOMYCIN 1,250 MG in SODIUM CHLORIDE 0.9% 250 ML IVPB SCH (08:29)
[2023-02-21] MEDS: ESCITALOPRAM 20 MG TAB PO SCH (08:29)
--- NOTE | 2023-02-21 11:38 | P.PN ---
Subjective Progress Note Date: 02/21/23 CHIEF COMPLAINT: Right breast seroma HISTORY OF PRESENT ILLNESS: Patient reports that the right breast swelling is decreasing. She also has decreased pain. Her white count has normalized. She is afebrile. Blood cultures remain negative. WBC 7.7 hgb 11.2 creatinine 0.67 PHYSICAL EXAM: VITAL SIGNS: Reviewed. GENERAL: Well-developed in no acute distress. HEENT: No sclera icterus. Extraocular movements grossly intact. Moist buccal mucosa. Head is atraumatic, normocephalic. ABDOMEN: Soft. Nondistended. Nontender. NEUROLOGIC: Alert and oriented. Cranial nerves II through XII grossly intact. Breast: Right breast decreased swelling and area of induration the right medial aspect of the breast. Mild erythema at the incision. Decrease tenderness with palpation. ASSESSMENT: 1. Right breast seroma with sepsis 2. Left breast cancer status post bilateral mastectomy with reconstruction PLAN: -Continue IV antibiotics -Awaiting discharge antibiotic recommendations per ID service -Continue conservative management -Patient to follow-up with plastic surgeon outpatient Physician Quality Control Lab Tech note has been reviewed by physician. Signing provider agrees with the documented findings, assessment, and plan of care. Objective - Vital Signs Vital signs: Vital Signs Temp 98.0 F 02/21/23 07:28 Pulse 68 02/21/23 07:42 Resp 16 02/21/23 07:28 BP 96/65 02/21/23 07:42 Pulse Ox 97 02/21/23 08:00 FiO2 Intake & Output 02/20/23 02/21/23 02/21/23 18:59 06:59 18:59 Intake Total 500 240 Balance 500 240 Intake: Intake, IV Titration 500 Amount Vancomycin 1,250 mg In 500 Sodium Chloride 0.9% 250 ml @ 125 mls/hr IVPB Q8HR [facility] Rx#:[id number] Oral 240 Other: Voiding Method Toilet Toilet # Voids 4 - Labs CBC & Chem 7: 02/20/23 07:12 02/21/23 07:00 Labs: Abnormal Lab Results - Last 24 Hours (Table) 02/21/23 Range/Units 07:00 Chloride 109 H (98-107) mmol/L Calcium 8.3 L (8.4-10.2) mg/dL ALT 38 H (4-34) U/L Total Protein 5.7 L (6.3-8.2) g/dL Albumin 3.0 L (3.5-5.0) g/dL Microbiology - Last 24 Hours (Table) 02/17/23 23:56 Blood Culture - Preliminary Blood No Growth after 72 hours 02/17/23 23:08 Blood Culture - Preliminary Blood No Growth after 72 hours
[2023-02-21 11:50] LABS: Basophils # (A) 0.12 X 10*3/uL (0.00-0.10); Basophils % (A) 1.3 %; Eosinophils # (A) 0.02 X 10*3/uL (0.04-0.35); Eosinophils % (A) 0.2 %; HCT 34.6 % (37.2-46.3); HGB 10.7 g/dL (12.0-15.0); Immature Grans, Automated 1.7 %; Lymphocytes # (A) 1.58 X 10*3/uL (0.90-5.00); Lymphocytes % (A) 17.8 %; MCH 29.6 pg (27.0-32.0); MCHC 30.9 g/dL (32.0-37.0); MCV 95.6 fL (80.0-97.0); Mean Platelet Volume 10.7 fL (9.5-12.2); Monocytes # (A) 0.66 X 10*3/uL (0.20-1.00); Monocytes % (A) 7.4 %; NRBC Per 100 WBC 0.2 /100 WBCS (0.0-0.0); Neutrophils # (A) 6.36 X 10*3/uL (1.80-7.70); Neutrophils % (A) 71.6 %; Platelet Count 205 X 10*3/uL (140-440); RBC 3.62 X 10*6/uL (4.10-5.20); RDW 13.1 % (11.5-14.5); WBC 8.89 X 10*3/uL (4.50-10.00)
--- NOTE | 2023-02-21 12:24 | P.PN ---
Subjective Progress Note Date: 02/21/23 Principal diagnosis: breast abscess At today's visit patient is resting comfortably in bed. She reports feeling well. She states that he feels that the swallowing in the right breast has improved. She denies fever and chills. No other reported complaints of this time Objective - Vital Signs Vital signs: Vital Signs Temp 98.0 F 02/21/23 07:28 Pulse 68 02/21/23 07:42 Resp 16 02/21/23 07:28 BP 96/65 02/21/23 07:42 Pulse Ox 97 02/21/23 08:00 FiO2 Intake & Output 02/20/23 02/21/23 02/21/23 18:59 06:59 18:59 Intake Total 500 240 Balance 500 240 Intake: Intake, IV Titration 500 Amount Vancomycin 1,250 mg In 500 Sodium Chloride 0.9% 250 ml @ 125 mls/hr IVPB Q8HR [facility] Rx#:[id number] Oral 240 Other: Voiding Method Toilet Toilet # Voids 4 - Constitutional General appearance: Present: average body habitus, no acute distress - EENT Eyes: Present: anicteric sclerae, EOMI ENT: Present: hearing grossly normal - Respiratory Details: Breathing is even an unlabored - Cardiovascular Details: Skin warm and dry - Integumentary Integumentary Comment(s): Induration and fullness of medial right breast has slightly improved. Patient reports decreased tenderness upon palpation. - Neurologic Neurologic: Present: CNII-XII intact - Musculoskeletal Musculoskeletal: Present: strength equal bilaterally - Psychiatric Psychiatric: Present: A&O x's 3, appropriate affect, intact judgment & insight - Labs CBC & Chem 7: 02/21/23 07:00 02/21/23 07:00 Labs: Abnormal Lab Results - Last 24 Hours (Table) 02/21/23 02/21/23 Range/Units 07:00 07:00 RBC 3.62 L (4.10-5.20) X 10*6/uL Hgb 10.7 L (12.0-15.0) g/dL Hct 34.6 L (37.2-46.3) % MCHC 30.9 L (32.0-37.0) g/dL Absolute Nucleated RBC 0.02 H (0.00-0.00) X 10*3/uL Immature Gran # 0.15 H (0.00-0.04) X 10*3/uL Eosinophils # 0.02 L (0.04-0.35) X 10*3/uL Basophils # 0.12 H (0.00-0.10) X 10*3/uL NRBC/100 WBC Diff 0.2 H (0.0-0.0) /100 WBCS Chloride 109 H (98-107) mmol/L Calcium 8.3 L (8.4-10.2) mg/dL ALT 38 H (4-34) U/L Total Protein 5.7 L (6.3-8.2) g/dL Albumin 3.0 L (3.5-5.0) g/dL Microbiology - Last 24 Hours (Table) 02/17/23 23:56 Blood Culture - Preliminary Blood No Growth after 72 hours 02/17/23 23:08 Blood Culture - Preliminary Blood No Growth after 72 hours Assessment and Plan (1) Breast abscess Current Visit: Yes Status: Acute Priority: High Code(s): N61.1 - ABSCESS OF THE BREAST AND NIPPLE SNOMED Code(s): 23470173 (2) Breast cancer Current Visit: Yes Status: Acute Code(s): C50.919 - MALIGNANT NEOPLASM OF UNSP SITE OF UNSPECIFIED FEMALE BREAST SNOMED Code(s): 963701109 Plan: Breast abscess: -Ultrasound of the right breast showed a 2.2 x 0.7 x 1.0 cm abscess versus seroma. -ID and surgery have been consulted. 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 Cycle 2 scheduled for 02/28, will likely have to reschedule. Awaiting return call from Dr. Mike's office to discuss his recommendations for when chemotherapy can be restarted. Will reevaluate patient in clinic to reassess before progressing to cycle 2. Pt updated on POC
[2023-02-21 12:35] VITALS: BP 101/67; PULSE 72; TEMP 98.2
--- NOTE | 2023-02-21 13:19 | P.DS ---
Providers Date of admission: 02/18/23 01:24 Expected date of discharge: 02/21/23 Attending physician: Jose Luther MD Consults: 02/18/23 01:24 Consult Physician Stat Consulting Provider: Ronaldo Gill Consult Reason/Comments: Breast abscess, cancer Do you want consulting provider notified?: Yes, Notify in am 02/18/23 09:49 Consult Physician Routine Consulting Provider: Dylan Block Consult Reason/Comments: Right breast cellulitis Do you want consulting provider notified?: Yes 02/18/23 10:21 Consult Physician Routine Consulting Provider: Bjorn Albert Consult Reason/Comments: right breast abscess, known to patient Do you want consulting provider notified?: Yes Primary care physician: Stated None Hospital Course: Discharge diagnoses; Sepsis Right breast abcess History of Left breast cancer status post bilateral mastectomy with reconstruction Leukocytosis Hospital course; patient is a 32-year-old lady with history of breast cancer presented to the ER because of fever ,chills and right breast pain. Patient is currently undergoing chemotherapy. Patient has been having fever and chills at home, denies any recent trauma to her breast. Denies any chest pain or shortness of breath. Patient was seen at her oncologist office and blood work done there showed patie nt to have elevated white count, they referred her to the ER. In the ER, initial lab work done showed WBC of 19, hemoglobin 11.7, MCV 90.4 platelet count 175, sodium 135, potassium 4.1, chloride 100, BUN 7, creatinine 0.71. Patient had a right breast ultrasound done that showed 0.2 bites 0.7 x 1 cm fluid collection in the right breast in the area of pain. This is located within 3 mm of the skin surface. Consider small abscess or seroma Patient admitted for further evaluation and treatment 02/19. Patient seen and examined. States right breast pain has improved, redness also improving. Denies any fevers or chills 02/20 patient seen and examined. No acute issues overnight. Vital signs are temperature 97.7, heart rate 83, respirations 16, blood pressure 104/68. Leukocytosis is resolved. Possible discharge in next 24 hours 02/21. Patient seen and examined. ID recommended discharging on oral Bactrim for 10 days. Patient to follow up outpatient with Dr. Mike's PHYSICAL EXAMINATION: GENERAL: The patient is alert and oriented x3, not in any acute distress. Well developed, well nourished. HEENT: Pupils are round and equally reacting to light. EOMI. No scleral icterus. No conjunctival pallor. Normocephalic, atraumatic. No pharyngeal erythema. No thyromegaly. CARDIOVASCULAR: S1 and S2 present. No murmurs, rubs, or gallops. PULMONARY: Chest is clear to auscultation, no wheezing or crackles. ABDOMEN: Soft, nontender, nondistended, normoactive bowel sounds. No palpable organomegaly. MUSCULOSKELETAL: No joint swelling or deformity. EXTREMITIES: No cyanosis, clubbing, or pedal edema. NEUROLOGICAL: Gross neurological examination did not reveal any focal deficits. SKIN: Right breast tenderness improved Patient Condition at Discharge: Stable Plan - Discharge Summary Discharge Rx Participant: No New Discharge Prescriptions: New Sulfamethox-Tmp 800-160Mg [Bactrim DS 800-160 mg] 1 tab PO Q12HR 10 Days #20 tab Continue OLANZapine [ZyPREXA] 2.5 mg PO HS traZODone HCL [Desyrel] 50 - 75 mg PO HS PRN PRN Reason: Insomnia hydrOXYzine pamoate [Vistaril] 25 mg PO BID PRN PRN Reason: Anxiety Escitalopram [Lexapro] 20 mg PO DAILY Brexpiprazole [Rexulti] 1 mg PO HS Ondansetron [Zofran] 4 mg PO Q4H PRN PRN Reason: Nausea Discharge Medication List traZODone HCL [Desyrel] 50 - 75 mg PO HS PRN 10/18/22 [History] Brexpiprazole [Rexulti] 1 mg PO HS 12/23/22 [History] Escitalopram [Lexapro] 20 mg PO DAILY 12/23/22 [History] hydrOXYzine pamoate [Vistaril] 25 mg PO BID PRN 12/23/22 [History] OLANZapine [ZyPREXA] 2.5 mg PO HS 02/18/23 [History] Ondansetron [Zofran] 4 mg PO Q4H PRN 02/18/23 [History] Sulfamethox-Tmp 800-160Mg [Bactrim DS 800-160 mg] 1 tab PO Q12HR 10 Days #20 tab 02/21/23 [Rx] Follow up Appointment(s)/Referral(s): None,Stated [Primary Care Provider] - 1-2 days Dylan Block MD [STAFF PHYSICIAN] - 1 Week Discharge Disposition: HOME SELF-CARE
== END 2023-02-21 14:46 | disposition home or self-care (01) | DRG 872 ==
LOC: EC 22:22 → 5NMEDONC 02-18 01:24
PROVIDERS: ADMIT Internal Medicine; ATTEND Internal Medicine
DX: A41.9 Sepsis, unspecified organism (principal); T81.41XA Infection following a procedure, superficial incisional surgical site, initial encounter; L76.34 Postprocedural seroma of skin and subcutaneous tissue following other procedure; R50.9 Fever, unspecified; C50.919 Malignant neoplasm of unspecified site of unspecified female breast; N61.1 Abscess of the breast and nipple; C50.912 Malignant neoplasm of unspecified site of left female breast; F41.9 Anxiety disorder, unspecified; F32.A Depression, unspecified; R50.82 Postprocedural fever; S21.002A Unspecified open wound of left breast, initial encounter; Z79.899 Other long term (current) drug therapy; Z90.13 Acquired absence of bilateral breasts and nipples; Y84.8 Other medical procedures as the cause of abnormal reaction of the patient, or of later complication, without mention of misadventure at the time of the procedure
CPT/HCPCS: 36415; 80053; 80202; 81001; 82565; 83605; 85025; 85610; 85730; 86140; 87040; 93005; 94760; 96361; 96365; 96375; 99285

== ENCOUNTER 2023-04-14 10:50 | Inpatient (IN) | payer BC, OTHER ==
[2023-04-14] MEDS ORDERED: ACETAMINOPHEN TAB 500 MG TAB PO STA (11:44)
--- NOTE | 2023-04-14 11:47 | ED ---
General Adult HPI - General Chief complaint: Fever Stated complaint: fever - sent by Lenin Time Seen by Provider: 04/14/23 11:28 Source: patient, RN notes reviewed Mode of arrival: ambulatory Limitations: no limitations - History of Present Illness Initial comments: Patient is a pleasant 32-year-old female presenting to the emergency department with concern for fever. Onset was around 5 in the morning. Patient did take Tylenol. Patient complains of myalgias and fatigue. Minimal congestion. Minimal cough. No abdominal pain or dysuria. Patient did vomit a couple times. Patient does have history of breast cancer and currently is on chemotherapy. Last was a week or 2 ago. Patient does have left breast wound that has been slowly healing. Patient states there has been some increased discomfort today. No redness or warmth. - Related Data Home Medications Medication Instructions Recorded Confirmed traZODone HCL [Desyrel] 50 - 75 mg PO HS PRN 10/18/22 04/14/23 Brexpiprazole [Rexulti] 1 mg PO HS 12/23/22 04/14/23 Escitalopram [Lexapro] 20 mg PO DAILY 12/23/22 04/14/23 hydrOXYzine pamoate [Vistaril] 25 mg PO BID PRN 12/23/22 04/14/23 OLANZapine [ZyPREXA] 2.5 mg PO HS PRN 02/18/23 04/14/23 Ondansetron [Zofran] 4 mg PO Q4H PRN 02/18/23 04/14/23 Prochlorperazine [Compazine] 10 mg PO Q6H PRN 04/14/23 04/14/23 dexAMETHasone [Decadron] 4 - 8 mg PO DIRECTED 04/14/23 04/14/23 Allergies Allergy/AdvReac Type Severity Reaction Status Date / Time No Known Allergies Allergy Verified 04/14/23 14:17 Review of Systems ROS Statement: Those systems with pertinent positive or pertinent negative responses have been documented in the HPI. ROS Other: All systems not noted in ROS Statement are negative. Constitutional: Reports: as per HPI, fever Eyes: Denies: eye pain ENT: Reports: congestion. Denies: ear pain Respiratory: Reports: as per HPI Cardiovascular: Denies: chest pain Endocrine: Reports: fatigue Gastrointestinal: Denies: abdominal pain Genitourinary: Denies: dysuria Musculoskeletal: Denies: back pain Skin: Reports: as per HPI Past Medical History Past Medical History: Cancer Additional Past Medical History / Comment(s): breast cancer current History of Any Multi-Drug Resistant Organisms: None Reported Past Surgical History: Breast Surgery Additional Past Surgical History / Comment(s): urethral mass removed. Right breast biopsy 2019 left breast biopsy Past Anesthesia/Blood Transfusion Reactions: No Reported Reaction Past Psychological History: Anxiety, Depression Smoking Status: Former smoker Past Alcohol Use History: None Reported Past Drug Use History: None Reported General Exam Limitations: no limitations General appearance: alert, in no apparent distress Head exam: Present: normocephalic Eye exam: Present: normal appearance Neck exam: Present: normal inspection. Absent: meningismus Respiratory exam: Present: normal lung sounds bilaterally Cardiovascular Exam: Present: tachycardia GI/Abdominal exam: Present: soft. Absent: tenderness Extremities exam: Present: normal inspection. Absent: pedal edema, calf tenderness Neurological exam: Present: alert Psychiatric exam: Present: normal affect, normal mood Skin exam: Present: other (Left breast wound stage 2-3 without significant drainage. Breast tissue does have moderate diffuse tenderness.) Course Vital Signs 04/14/23 11:23 Temperature 102.7 F H Pulse Rate 124 H Respiratory 20 Rate Blood Pressure 79/51 O2 Sat by Pulse 95 Oximetry - Reevaluation(s) Reevaluation #1: 04/14/23 14:44 Concern for sepsis diagnosed at 1440. Blood culture and lactic acid and IV antibiotic's will all be ordered EKG Findings - EKG Results: EKG: interpreted by ERMD, sinus rhythm, normal axis, normal QRS, normal ST/T EKG shows: tachycardia Medical Decision Making - Medical Decision Making Was pt. sent in by a medical professional or institution (, PA, CHIEF EXECUTIVE, urgent care, hospital, or halfway...) When possible be specific @ -Patient was sent and after discussion with Dr. Lu secondary to her fever Did you speak to anyone other than the patient for history (EMS, parent, family, police, friend...)? What history was obtained from this source @ -No Did you review nursing and triage notes (agree or disagree)? Why? @ -I reviewed and agree with nursing and triage notes Were old charts reviewed (outside hosp., previous admission, EMS record, old EKG, old radiological studies, urgent care reports/EKG's, halfway records)? Report findings @ -No old charts were reviewed Differential Diagnosis (chest pain, altered mental status, abdominal pain women, abdominal pain men, vaginal bleeding, weakness, fever, dyspnea, syncope, headache, dizziness, GI bleed, back pain, seizure, CVA, palpatations, mental health)? @ -Differential Fever: Pneumonia, viral URI, endocarditis, myocarditis, pericarditis, otitis, sinusitis, peritonsillar Abscess, retropharyngeal Abscess, epiglottitis, peritonitis, appendicitis, Sri cystitis, diverticulitis, hepatitis, colitis, UTI, PID, TOA, pyelonephritis, prostatitis, epididymitis, meningitis, encephalitis, pulmonary embolism, CVA, thyroid storm, pancreatitis, adrenal crisis, cavernous sinus thrombosis, this is not meant to be an all-inclusive list. EKG interpreted by me (3pts min.). @ -As above X-rays interpreted by me (1pt min.). @ -S x-ray reveals no acute abnormality CT interpreted by me (1pt min.). @ -None done U/S interpreted by me (1pt. min.). @ -None done What testing was considered but not performed or refused? (CT, X-rays, U/S, labs)? Why? @ -None What meds were considered but not given or refused? Why? @ -None Did you discuss the management of the patient with other professionals (professionals i.e. , PA, CHIEF EXECUTIVE, lab, RT, psych nurse, social and human services assistant, plumbing foreman, teacher, botanical technical officer, ed case manager)? Give summary @ -Case was discussed with Dr. Abdalla, who will admit covering hospital call. He does recommend cefepime and vancomycin Was smoking cessation discussed for >3mins.? @ -No Was critical care preformed (if so, how long)? @ -32 minutes critical care Were there social determinants of health that impacted care today? How? (Homelessness, low income, unemployed, alcoholism, drug addiction, transportation, low edu. Level, literacy, decrease access to med. care, custodial, rehab)? @ -No Was there de-escalation of care discussed even if they declined (Discuss DNR or withdrawal of care, Hospice)? DNR status @ -No What co-morbidities impacted this encounter? (DM, HTN, Smoking, COPD, CAD, Cancer, CVA, ARF, Chemo, Hep., AIDS, mental health diagnosis, sleep apnea, morbid obesity)? @ -None Was patient admitted / discharged? Hospital course, mention meds given and route, prescriptions, significant lab abnormalities, going to OR and other pertinent info. @ -Patient will be admitted to the hospital with concern for sepsis. Exact source is unclear. There is suspicion for breast infection secondary to open wound. Patient did have an episode of serous drainage from her left breast approximately 20-30 mL, possibly more. Patient states she did have her first injection recently. Patient will need evaluation with oncology and her surgeon will also be consulted. Undiagnosed new problem with uncertain prognosis? @ -No Drug Therapy requiring intensive monitoring for toxicity (Heparin, Nitro, Insulin, Cardizem)? @ -No Were any procedures done? @ -No Diagnosis/symptom? @ -Sepsis, breast wound Acute, or Chronic, or Acute on Chronic? @ -., Acute acute Uncomplicated (without systemic symptoms) or Complicated (systemic symptoms)? @ -default Side effects of treatment? @ -No Exacerbation, Progression, or Severe Exacerbation? @ -No Poses a threat to life or bodily function? How? (Chest pain, [place], [place], pneumonia, PE, COPD, DKA, ARF, appy, cholecystitis, CVA, Diverticulitis, Homicidal, Suicidal, threat to staff... and all critical care pts) @ -No - Lab Data Result diagrams: 04/14/23 12:04 04/14/23 12:04 Lab Results 04/14/23 04/14/23 04/14/23 Range/Units 12:00 12:04 12:04 WBC 31.4 H (3.8-10.6) k/uL RBC 4.00 (3.80-5.40) m/uL Hgb 12.1 (11.4-16.0) gm/dL Hct 36.4 (34.0-46.0) % MCV 90.9 (80.0-100.0) fL MCH 30.2 (25.0-35.0) pg MCHC 33.2 (31.0-37.0) g/dL RDW 15.8 H (11.5-15.5) % Plt Count 180 (150-450) k/uL MPV 8.2 Neutrophils % 94 % Lymphocytes % 2 % Monocytes % 3 % Eosinophils % 0 % Basophils % 0 % Neutrophils # 29.4 H (1.3-7.7) k/uL Lymphocytes # 0.7 L (1.0-4.8) k/uL Monocytes # 1.1 H (0-1.0) k/uL Eosinophils # 0.0 (0-0.7) k/uL Basophils # 0.0 (0-0.2) k/uL Manual Slide Review Performed PT 10.7 (9.0-12.0) sec INR 1.0 (<1.2) APTT 22.7 (22.0-30.0) sec Sodium (137-145) mmol/L Potassium (3.5-5.1) mmol/L Chloride (98-107) mmol/L Carbon Dioxide (22-30) mmol/L Anion Gap mmol/L BUN (7-17) mg/dL Creatinine (0.52-1.04) mg/dL Est GFR (CKD-EPI)AfAm (>60 ml/min/1.73 sqM) Est GFR (CKD-EPI)NonAf (>60 ml/min/1.73 sqM) Glucose (74-99) mg/dL Plasma Lactic Acid Kenan (0.7-2.0) mmol/L Calcium (8.4-10.2) mg/dL Total Bilirubin (0.2-1.3) mg/dL AST (14-36) U/L ALT (4-34) U/L Alkaline Phosphatase (38-126) U/L Total Protein (6.3-8.2) g/dL Albumin (3.5-5.0) g/dL Urine Color Urine Appearance (Clear) Urine pH (5.0-8.0) Ur Specific [place] (1.001-1.035) Urine Protein (Negative) Urine Glucose (UA) (Negative) Urine Ketones (Negative) Urine Blood (Negative) Urine Nitrite (Negative) Urine Bilirubin (Negative) Urine Urobilinogen (<2.0) mg/dL Ur Leukocyte Esterase (Negative) Influenza Type A (PCR) Not Detected (Not Detectd) Influenza Type B (PCR) Not Detected (Not Detectd) RSV (PCR) Not Detected (Not Detectd) SARS-CoV-2 (PCR) Not Detected (Not Detectd) 04/14/23 04/14/23 04/14/23 Range/Units 12:04 12:04 14:03 WBC (3.8-10.6) k/uL RBC (3.80-5.40) m/uL Hgb (11.4-16.0) gm/dL Hct (34.0-46.0) % MCV (80.0-100.0) fL MCH (25.0-35.0) pg MCHC (31.0-37.0) g/dL RDW (11.5-15.5) % Plt Count (150-450) k/uL MPV Neutrophils % % Lymphocytes % % Monocytes % % Eosinophils % % Basophils % % Neutrophils # (1.3-7.7) k/uL Lymphocytes # (1.0-4.8) k/uL Monocytes # (0-1.0) k/uL Eosinophils # (0-0.7) k/uL Basophils # (0-0.2) k/uL Manual Slide Review PT (9.0-12.0) sec INR (<1.2) APTT (22.0-30.0) sec Sodium 135 L (137-145) mmol/L Potassium 4.0 (3.5-5.1) mmol/L Chloride 103 (98-107) mmol/L Carbon Dioxide 23 (22-30) mmol/L Anion Gap 9 mmol/L BUN 7 (7-17) mg/dL Creatinine 0.90 (0.52-1.04) mg/dL Est GFR (CKD-EPI)AfAm >90 (>60 ml/min/1.73 sqM) Est GFR (CKD-EPI)NonAf 84 (>60 ml/min/1.73 sqM) Glucose 114 H (74-99) mg/dL Plasma Lactic Acid Kenan 1.5 (0.7-2.0) mmol/L Calcium 8.3 L (8.4-10.2) mg/dL Total Bilirubin 0.9 (0.2-1.3) mg/dL AST 27 (14-36) U/L ALT 35 H (4-34) U/L Alkaline Phosphatase 63 (38-126) U/L Total Protein 6.3 (6.3-8.2) g/dL Albumin 3.7 (3.5-5.0) g/dL Urine Color Yellow Urine Appearance Clear (Clear) Urine pH 7.5 (5.0-8.0) Ur Specific [place] 1.010 (1.001-1.035) Urine Protein Negative (Negative) Urine Glucose (UA) Negative (Negative) Urine Ketones Negative (Negative) Urine Blood Negative (Negative) Urine Nitrite Negative (Negative) Urine Bilirubin Negative (Negative) Urine Urobilinogen <2.0 (<2.0) mg/dL Ur Leukocyte Esterase Negative (Negative) Influenza Type A (PCR) (Not Detectd) Influenza Type B (PCR) (Not Detectd) RSV (PCR) (Not Detectd) SARS-CoV-2 (PCR) (Not Detectd) Critical Care Time Critical Care Time: Yes Total Critical Care Time: 32 Disposition Clinical Impression: Sepsis, Breast cancer, left, Breast wound Disposition: ADMITTED IP TO THIS HOSP Is patient prescribed a controlled substance at d/c from ED?: No Referrals: None,Stated [Primary Care Provider] - 1-2 days Time of Disposition: 14:49
[2023-04-14] MEDS: SODIUM CHLORIDE 0.9% 1,000 ML IV SCH ×2 (12:17→18:35)
[2023-04-14 12:25] LABS: Basophils % (A) 0 %; Eosinophils % (A) 0 %; HCT 36.4 % (34.0-46.0); HGB 12.1 gm/dL (11.4-16.0); Lymphocytes # (A) 0.7 k/uL (1.0-4.8); Lymphocytes % (A) 2 %; MCH 30.2 pg (25.0-35.0); MCHC 33.2 g/dL (31.0-37.0); MCV 90.9 fL (80.0-100.0); Mean Platelet Volume 8.2; Monocytes # (A) 1.1 k/uL (0-1.0); Monocytes % (A) 3 %; Neutrophils # (A) 29.4 k/uL (1.3-7.7); Neutrophils % (A) 94 %; Platelet Count 180 k/uL (150-450); RDW 15.8 % (11.5-15.5); WBC 31.4 k/uL (3.8-10.6)
[2023-04-14 12:36] LABS: Partial Thromboplastin Time 22.7 sec (22.0-30.0); Prothrombin Time 10.7 sec (9.0-12.0)
[2023-04-14 12:44] LABS: ALT 35 U/L (4-34); AST 27 U/L (14-36); African American GFR (CKD) >90 (>60 ml/min/1.73 sqM); Albumin 3.7 g/dL (3.5-5.0); Alkaline Phosphatase 63 U/L (38-126); Anion Gap 9 mmol/L; Blood Urea Nitrogen 7 mg/dL (7-17); Calcium 8.3 mg/dL (8.4-10.2); Carbon Dioxide 23 mmol/L (22-30); Chloride 103 mmol/L (98-107); Glucose 114 mg/dL (74-99); Non-African American GFR(CKD) 84 (>60 ml/min/1.73 sqM); Sodium 135 mmol/L (137-145); Total Bilirubin 0.9 mg/dL (0.2-1.3); Total Protein 6.3 g/dL (6.3-8.2)
--- NOTE | 2023-04-14 13:33 | XR ---
EXAMINATION TYPE: XR chest 2V DATE OF EXAM: 04/14/2023 COMPARISON: None HISTORY: 32-year-old female with fever and dizziness TECHNIQUE: AP and lateral views FINDINGS: Bilateral breast tissue expanders are noted. The cardiomediastinal silhouette, aorta, and pulmonary v asculature are within normal limits. Lungs and pleural spaces are clear. IMPRESSION: No acute cardiopulmonary process. Bilateral breast tissue expanders.
[2023-04-14 14:24] LABS: Appearance,Urine Clear (Clear); Bilirubin,Urine Negative (Negative); Blood,Urine Negative (Negative); Color,Urine Yellow; Glucose,Urine (UA) Negative (Negative); Ketones,Urine Negative (Negative); Leukocyte Esterase,Urine Negative (Negative); Nitrite,Urine Negative (Negative); PH, Urine 7.5 (5.0-8.0); Protein,Urine Negative (Negative); Urobilinogen,Urine <2.0 mg/dL (<2.0)
[2023-04-14] MEDS ORDERED: VANCOMYCIN IV PER PHARMACY 1 EACH MISC MISCELLANE PRN (14:44)
[2023-04-14] MEDS ORDERED: NALOXONE 0.4 MG/ML 1 ML VIAL IV PRN (14:49)
[2023-04-14] MEDS ORDERED: SODIUM CHLORIDE 0.9% 1,000 ML IV STA (14:52)
[2023-04-14] MEDS ORDERED: CEFEPIME 2 GM in SODIUM CHLORIDE 0.9% 100 ML IVPB ONE (15:00)
[2023-04-14] MEDS ORDERED: hydrOXYzine pamoate 25 MG CAP PO PRN (15:30)
[2023-04-14] MEDS ORDERED: OLANZapine 2.5 MG TAB PO PRN (15:30)
[2023-04-14] MEDS ORDERED: VANCOMYCIN 1,500 MG in SODIUM CHLORIDE 0.9% 500 ML 500 ML IVPB ONE (15:30)
[2023-04-14] MEDS ORDERED: ONDANSETRON 4 MG TAB PO PRN (15:30)
[2023-04-14] MEDS ORDERED: PROCHLORPERAZINE 10 MG TAB PO PRN (15:30)
--- NOTE | 2023-04-14 16:02 | USB ---
Reason for Exam: Clinical finding. Patient History: Menarche at age 10. First Full-Term at age 20. Patient has history of breast feeding. Breast cancer, left, age 32. Currently using Hormonal Contraceptives, for 1 year. 01/03/2023, Mastectomy on the Left side. 01/03/2023, Mastectomy on the Right side. 10/27/2022, Malignant US biopsy breast VAD LT on the left side. 09/17/2019, Benign Core Biopsy on the right side. Paternal aunt had breast cancer. Paternal aunt had breast cancer. Paternal aunt had ovarian cancer. Paternal cousin had breast cancer. Paternal cousin had ovarian cancer. Technique: Method: Whole Breast Handheld. Prior Study Comparison: 08/31/2019 Bilateral Diagnostic Mammogram, [facility]. 10/18/2022 Bilateral MG 3D diag mammo w/cad MARRY, [facility]. 10/27/2022 Left MG diagnostic mammo LT wo CAD., [facility]. Findings: The whole breast of the left breast was scanned. A complete US of all four quadrants of the breast , axilla, and retro-areolar region were reviewed. The patient is status post left mastectomy. Edematous subcutaneous fat is noted. Underlying collapsed tissue clinical supervisor is also demonstrated. No abnormal fluid collection is identified. Overall Assessment: Benign, BI-RAD 2 Management: Surgical Consultation of the left breast. For the patient's weeping wound. No abnormal fluid collection is identified. Some edematous tissues could be on the basis of posttreatment/postsurgical change. Underlying collapsed tissue clinical supervisor is noted. Electronically signed and approved by: Enid Balderrama M.D. Radiologist
--- NOTE | 2023-04-14 16:27 | P.PN ---
Subjective Progress Note Date: 04/14/23 Patient is a 32-year-old female with history of breast cancer and depression, presenting with fevers. She claims that this morning she started to have fever, she has noted an open wound which she sees wound care for on her left breast. She has had bilateral mastectomy after breast cancer, as well as chemotherapy. Currently she is down 3 cycles of chemo. No radiation. She also gets saline injection for expanders under her breast, however the open wound is separate from where she gets saline. She denies any recent sick contacts, travel history, any other rashes or open wounds, nausea, vomiting, abdominal pain, urinary or bowel complaints. She did have some lightheadedness and palpitations earlier. In the ED, her temperature was 102.7, tachycardic to 124, respiratory rate 20, blood pressure 79/51, saturating at 94% on room air. WBC 31.4, sodium 135, lactate 1.5, creatinine 0.9. Respiratory Viral panel was negative, urinalysis was negative. Chest x-ray did not show any acute process. EKG shows sinus tachycardia. Patient is being admitted for sepsis secondary to likely breast abscess in the setting of breast cancer. Pertinent positives and negatives as discussed in HPI, a complete review of systems was performed and all other systems are negative. Patient seen and examined at bedside. Vital signs reviewed General: nontoxic, no distress, appears at stated age Derm: warm, dry, breast tissue not observed Head: atraumatic, normocephalic, symmetric Eyes: EOMI, no lid lag, anicteric sclera, pupils equal round reactive to light ENT: Nose and ears atraumatic Neck: No thyromegaly, supple Mouth: no lip lesion, mucus membranes moist Cardiovascular: S1S2 reg, no murmur, no edema Lungs: clear to auscultation bilateral, no rhonchi, no rales, no wheeze, no acc essory muscle use Abdominal: soft, nontender to palpation, no guarding, no appreciable organomegaly Ext: no gross muscle atrophy, muscle strength muscle strength 5 out of 5 in all 4 extremities, no contractures Neuro: CN II-XII grossly intact Psych: Alert, oriented, appropriate affect Assessment/Plan: Active: Sepsis secondary to likely Breast abscess Recent diagnosis of breast cancer status post bilateral mastectomy and chemotherapy Sinus tachycardia -Blood cultures pending -Received IV fluids in the ED, normal lactic acid -Blood pressure and tachycardia improving -Chest x-ray independently interpreted shows no acute process -EKG independently interpreted, shows sinus tachycardia -On broad-spectrum antibiotics including vancomycin IV, and cefepime 2 g IV every 8 hours, monitor for renal toxicity -Oncology and surgery consulted -Breast ultrasound pending Chronic: Depression The patient is admitted with an anticipated greater than 2 midnight stay as inpatient status for evaluation of sepsis. Surrogate decision-maker: Mother CODE STATUS: Full code DVT prophylaxis: Lovenox Anticipated discharge date: Pending clinical course Anticipated discharge place: Pending clinical course A total of 65 minutes was spent on the care of this complex patient more than 50% of the time was spent in counseling and care coordination. Objective - Vital Signs Vital signs: Vital Signs Temp 98.4 F 04/14/23 14:51 Pulse 87 04/14/23 15:27 Resp 18 04/14/23 15:27 BP 107/65 04/14/23 14:51 Pulse Ox 98 04/14/23 15:27 FiO2 Intake & Output 04/13/23 04/14/23 04/14/23 18:59 06:59 18:59 Weight 77.111 kg - Labs CBC & Chem 7: 04/14/23 12:04 04/14/23 12:04 Labs: Abnormal Lab Results - Last 24 Hours (Table) 04/14/23 04/14/23 Range/Units 12:04 12:04 WBC 31.4 H (3.8-10.6) k/uL RDW 15.8 H (11.5-15.5) % Neutrophils # 29.4 H (1.3-7.7) k/uL Lymphocytes # 0.7 L (1.0-4.8) k/uL Monocytes # 1.1 H (0-1.0) k/uL Sodium 135 L (137-145) mmol/L Glucose 114 H (74-99) mg/dL Calcium 8.3 L (8.4-10.2) mg/dL ALT 35 H (4-34) U/L
[2023-04-14] MEDS ORDERED: RX INFO: IV CONTRAST WAS GIVEN 1 EACH MISC MISCELLANE PRN (17:18)
--- NOTE | 2023-04-14 19:43 | CT ---
EXAMINATION TYPE: CT chest w con CT DLP: 361.4 mGycm, Automated exposure control for dose reduction was used. DATE OF EXAM: 04/14/2023 7:26 PM COMPARISON: Ultrasound 02/18/2023., 04/14/2023 CLINICAL INDICATION:Female, 32 years old with history of Post mastectomy reconstruction infection; br east cancer, mastectomy reconstruction infection TECHNIQUE: Multiple axial images were obtained through the chest. Sagittal and coronal reformats were created for review. Contrast used:100 cc mL of Isovue 300 with IV Contrast Oral contrast used: none. FINDINGS: LUNGS/ PLEURA: The lung parenchyma appears unremarkable. AIRWAY: Patent and unremarkable. HEART: Size within normal limits. MEDIASTINUM: No gross evidence of adenopathy. VASCULATURE: No aortic aneurysm. MUSCULOSKELETAL: No acute osseous abnormalities SOFT TISSUES/LYMPH NODES: Bilateral mastectomy changes with implants noted. Implants appear deflated. There is subcutaneous gas surrounding the left implant. The left breast implant does not definitivel y have any organizing fluid collections but there is gas present surrounding the implant. The right implant is decompressed with fluid surrounding the the implant more medially. Pocket of flu id measures roughly 3.6 x 1.2 cm. LOWER NECK: No significant findings. UPPER ABDOMEN: No significant findings. IMPRESSION: Bilateral mastectomy changes with deflated breast implants. A small fluid of collection around the ri ght breast implant could be secondary to extra/intracapsular rupture. The left breast implant is also deflated with gas around the implant. No definitive organizing fluid collection on the left implant. Organizing fluid collection from the right implant. The right fluid collection possibly correlates w [facility] ultrasound finding of 02/18/2023 of simple fluid. Clinical correlation for infection advised.
[2023-04-14] MEDS: Brexpiprazole [Rexulti] 1 MG Tablet PO SCH (21:15)
[2023-04-15] MEDS ORDERED: VANCOMYCIN 1,500 MG in SODIUM CHLORIDE 0.9% 500 ML 500 ML IVPB SCH ×2
[2023-04-15] MEDS: CEFEPIME 2 GM in SODIUM CHLORIDE 0.9% 100 ML IVPB SCH ×4 (00:21→23:55)
[2023-04-15] MEDS: ACETAMINOPHEN TAB 325 MG TAB PO PRN ×2 (00:23→15:42)
[2023-04-15] MEDS: SODIUM CHLORIDE 0.9% 1,000 ML IV SCH ×3 (05:36→16:30)
[2023-04-15 07:56] LABS: Basophils % (A) 0 %; Eosinophils % (A) 0 %; HCT 31.2 % (34.0-46.0); HGB 10.2 gm/dL (11.4-16.0); Lymphocytes % (A) 6 %; MCH 30.4 pg (25.0-35.0); MCHC 32.7 g/dL (31.0-37.0); Mean Platelet Volume 8.3; Monocytes # (A) 0.7 k/uL (0-1.0); Monocytes % (A) 4 %; Neutrophils # (A) 14.7 k/uL (1.3-7.7); Neutrophils % (A) 88 %; Platelet Count 122 k/uL (150-450); RBC 3.35 m/uL (3.80-5.40); RDW 15.8 % (11.5-15.5); WBC 16.7 k/uL (3.8-10.6)
[2023-04-15 08:06] LABS: ALT 24 U/L (4-34); AST 17 U/L (14-36); African American GFR (CKD) >90 (>60 ml/min/1.73 sqM); Albumin 2.8 g/dL (3.5-5.0); Albumin/Globulin Ratio 1.2; Alkaline Phosphatase 47 U/L (38-126); Anion Gap 6 mmol/L; Blood Urea Nitrogen 5 mg/dL (7-17); Calcium 7.6 mg/dL (8.4-10.2); Carbon Dioxide 22 mmol/L (22-30); Chloride 111 mmol/L (98-107); Globulin 2.3 g/dL; Glucose 100 mg/dL (74-99); Non-African American GFR(CKD) >90 (>60 ml/min/1.73 sqM); Potassium 3.8 mmol/L (3.5-5.1); Sodium 139 mmol/L (137-145); Total Bilirubin 0.8 mg/dL (0.2-1.3); Total Protein 5.1 g/dL (6.3-8.2)
[2023-04-15] MEDS: ESCITALOPRAM 20 MG TAB PO SCH (09:13)
[2023-04-15] MEDS: ENOXAPARIN 40 MG/0.4 ML SYRINGE SQ SCH (09:14)
--- NOTE | 2023-04-15 10:45 | P.GSCN ---
History of Present Illness Consult date: 04/15/23 Reason for Consult: Left chest wall infection History of present illness: 32-year-old female known to our service. Patient underwent previous bilateral skin sparing mastectomy with reconstruction. Patient is following with plastic surgery at this point. She has a small 2.5 cm wound at the nipple reconstruction site centrally on the left chest. She only has had one fill of the expanders thus far. She had been feeling well up until a few days ago when she began experiencing increased pain and swelling at the reconstructed left breast. She started noticing some increased drainage from the wound site. She came to the hospital with fevers yesterday. White count was significantly elevated. Its improved today. Her pain is improved after she has had drainage from there. CAT scan chest was reviewed. Small amount of air and residual fluid around the armhole sewer is noted. She feels better. No further fevers. Both ER staff and myself spoke to plastic surgery yesterday. They requested patient be admitted here. Review of Systems The patient denies any acute changes in vision or hearing, no dysphagia or odynophagia, no chest pain or shortness of breath, no dysuria or hematuria, no headache, no runny nose, no rectal bleeding or melena, no unexplained weight loss Past Medical History Past Medical History: Cancer Additional Past Medical History / Comment(s): breast cancer current History of Any Multi-Drug Resistant Organisms: None Reported Past Surgical History: Breast Surgery Additional Past Surgical History / Comment(s): urethral mass removed. Right breast biopsy 2019 left breast biopsy 10/18/2022 Past Anesthesia/Blood Transfusion Reactions: No Reported Reaction Smoking Status: Former smoker Medications and Allergies Home Medications Medication Instructions Recorded Confirmed Type traZODone HCL [Desyrel] 50 - 75 mg PO HS PRN 10/18/22 04/14/23 History Brexpiprazole [Rexulti] 1 mg PO HS 12/23/22 04/14/23 History Escitalopram [Lexapro] 20 mg PO DAILY 12/23/22 04/14/23 History hydrOXYzine pamoate [Vistaril] 25 mg PO BID PRN 12/23/22 04/14/23 History OLANZapine [ZyPREXA] 2.5 mg PO HS PRN 02/18/23 04/14/23 History Ondansetron [Zofran] 4 mg PO Q4H PRN 02/18/23 04/14/23 History Prochlorperazine [Compazine] 10 mg PO Q6H PRN 04/14/23 04/14/23 History dexAMETHasone [Decadron] 4 - 8 mg PO DIRECTED 04/14/23 04/14/23 History Allergies Allergy/AdvReac Type Severity Reaction Status Date / Time No Known Allergies Allergy Verified 04/14/23 14:17 Surgical - Exam Vital Signs Temp Pulse Resp BP Pulse Ox 102.7 F H 124 H 20 79/51 95 04/14/23 11:23 04/14/23 11:23 04/14/23 11:23 04/14/23 11:23 04/14/23 11:23 Physical exam: General: Well-developed, well-nourished HEENT: Normocephalic, sclerae nonicteric Abdomen: Nontender, nondistended Extremities: No edema Neuro: Alert and oriented Right reconstructed breast without erythema or tenderness, no masses or adenopathy Left reconstructed breast with 2.5 x 2 cm wound centrally, wound is granulating, there is a very small 1-2 mm sinus opening at the top of the wound and per the patient that is where she has been seeing some drainage. No active drainage currently. There is only mild erythema and mild tenderness at this time Results - Labs 04/15/23 07:06 04/15/23 07:06 Abnormal Lab Results - Last 24 Hours (Table) 04/14/23 04/14/23 04/15/23 Range/Units 12:04 12:04 07:06 WBC 31.4 H 16.7 H (3.8-10.6) k/uL RBC 3.35 L (3.80-5.40) m/uL Hgb 10.2 L (11.4-16.0) gm/dL Hct 31.2 L (34.0-46.0) % RDW 15.8 H 15.8 H (11.5-15.5) % Plt Count 122 L (150-450) k/uL Neutrophils # 29.4 H 14.7 H (1.3-7.7) k/uL Lymphocytes # 0.7 L (1.0-4.8) k/uL Monocytes # 1.1 H (0-1.0) k/uL Sodium 135 L (137-145) mmol/L Chloride (98-107) mmol/L BUN (7-17) mg/dL Glucose 114 H (74-99) mg/dL Calcium 8.3 L (8.4-10.2) mg/dL ALT 35 H (4-34) U/L Total Protein (6.3-8.2) g/dL Albumin (3.5-5.0) g/dL 04/15/23 Range/Units 07:06 WBC (3.8-10.6) k/uL RBC (3.80-5.40) m/uL Hgb (11.4-16.0) gm/dL Hct (34.0-46.0) % RDW (11.5-15.5) % Plt Count (150-450) k/uL Neutrophils # (1.3-7.7) k/uL Lymphocytes # (1.0-4.8) k/uL Monocytes # (0-1.0) k/uL Sodium (137-145) mmol/L Chloride 111 H (98-107) mmol/L BUN 5 L (7-17) mg/dL Glucose 100 H (74-99) mg/dL Calcium 7.6 L (8.4-10.2) mg/dL ALT (4-34) U/L Total Protein 5.1 L (6.3-8.2) g/dL Albumin 2.8 L (3.5-5.0) g/dL Microbiology - Last 24 Hours (Table) 04/14/23 12:18 Gram Stain - Preliminary Breast - Left Diabetes panel 04/14/23 04/15/23 Range/Units 12:04 07:06 Sodium 135 L 139 (137-145) mmol/L Potassium 4.0 3.8 (3.5-5.1) mmol/L Chloride 103 111 H (98-107) mmol/L Carbon Dioxide 23 22 (22-30) mmol/L BUN 7 5 L (7-17) mg/dL Creatinine 0.90 0.57 (0.52-1.04) mg/dL Glucose 114 H 100 H (74-99) mg/dL Calcium 8.3 L 7.6 L (8.4-10.2) mg/dL AST 27 17 (14-36) U/L ALT 35 H 24 (4-34) U/L Alkaline Phosphatase 63 47 (38-126) U/L Total Protein 6.3 5.1 L (6.3-8.2) g/dL Albumin 3.7 2.8 L (3.5-5.0) g/dL Calcium panel 04/14/23 04/15/23 Range/Units 12:04 07:06 Calcium 8.3 L 7.6 L (8.4-10.2) mg/dL Albumin 3.7 2.8 L (3.5-5.0) g/dL Pituitary panel 04/14/23 04/15/23 Range/Units 12:04 07:06 Sodium 135 L 139 (137-145) mmol/L Potassium 4.0 3.8 (3.5-5.1) mmol/L Chloride 103 111 H (98-107) mmol/L Carbon Dioxide 23 22 (22-30) mmol/L BUN 7 5 L (7-17) mg/dL Creatinine 0.90 0.57 (0.52-1.04) mg/dL Glucose 114 H 100 H (74-99) mg/dL Calcium 8.3 L 7.6 L (8.4-10.2) mg/dL Adrenal panel 04/14/23 04/15/23 Range/Units 12:04 07:06 Sodium 135 L 139 (137-145) mmol/L Potassium 4.0 3.8 (3.5-5.1) mmol/L Chloride 103 111 H (98-107) mmol/L Carbon Dioxide 23 22 (22-30) mmol/L BUN 7 5 L (7-17) mg/dL Creatinine 0.90 0.57 (0.52-1.04) mg/dL Glucose 114 H 100 H (74-99) mg/dL Calcium 8.3 L 7.6 L (8.4-10.2) mg/dL Total Bilirubin 0.9 0.8 (0.2-1.3) mg/dL AST 27 17 (14-36) U/L ALT 35 H 24 (4-34) U/L Alkaline Phosphatase 63 47 (38-126) U/L Total Protein 6.3 5.1 L (6.3-8.2) g/dL Albumin 3.7 2.8 L (3.5-5.0) g/dL Assessment and Plan (1) Breast wound Narrative/Plan: 32-year-old female with what appears to represent an infected seroma around the left chest wall armhole sewer site. This has drained spontaneously for the most part already. Discussed case with Dr. Fay by phone. At this point we Will attempt salvage of this armhole sewer with antibiotics and wound care. Patient understands that there is a risk of possible need for armhole sewer removal. Dr. Mike will be here on Tuesday to evaluate the patient himself. In the meanwhile will consult infectious disease to assist with appropriate antibiotic coverage. Current Visit: Yes Status: Acute Code(s): S21.009A - UNSPECIFIED OPEN WOUND OF UNSPECIFIED BREAST, INIT ENCNTR SNOMED Code(s): 27108614
[2023-04-15] MEDS: VANCOMYCIN 1,500 MG in SODIUM CHLORIDE 0.9% 500 ML 500 ML IVPB SCH ×2 (11:46→17:20)
--- NOTE | 2023-04-15 13:48 | P.PN ---
Subjective Progress Note Date: 04/15/23 Hospital Course: 32-year-old female with history of breast cancer and depression, presenting with fevers. In the ED, her temperature was 102.7, tachycardic to 124, respiratory rate 20, blood pressure 79/51, saturating at 94% on room air. WBC 31.4, sodium 135, lactate 1.5, creatinine 0.9. Respiratory Viral panel was negative, urinalysis was negative. Chest x-ray did not show any acute process. EKG shows sinus tachycardia. Patient is being admitted for sepsis secondary to infected breast tissue. Surgery and oncology consulted. ID also consulted. Currently on IV antibiotics. Subjective: Seen and examined at bedside. No acute events overnight. Claims that there is still discharge from her breast. Pertinent positives and negatives as discussed above, a complete review of systems was performed and all other systems are negative. Vitals Signs Reviewed. General: nontoxic, no distress, appears at stated age Derm: warm, dry, breast tissue not observed Head: atraumatic, normocephalic, symmetric Eyes: EOMI, no lid lag, anicteric sclera, pupils equal round reactive to light ENT: Nose and ears atraumatic Neck: No thyromegaly, supple Mouth: no lip lesion, mucus membranes moist Cardiovascular: S1S2 reg, no murmur, no edema Lungs: clear to auscultation bilateral, no rhonchi, no rales, no wheeze, no accessory muscle use Abdominal: soft, nontender to palpation, no guarding, no appreciable organomegaly Ext: no gross muscle atrophy, muscle strength muscle strength 5 out of 5 in all 4 extremities, no contractures Neuro: CN II-XII grossly intact Psych: Alert, oriented, appropriate affect Data Reviewed Today: Pertinent Labs: WBC 16.7, hemoglobin 10.2, platelet 122, sodium 139, creatinine 0.57 Imaging: Chest CT report reviewed, shows small fluid collection around the right breast implant Assessment and Plan: Active: Sepsis secondary to likely breast tissue infection, the setting of breast implant Recent diagnosis of breast cancer status post bilateral mastectomy and chemotherapy -Surgery note reviewed, plastic surgery to evaluate the patient on Tuesday, we will attempt to salvage the implant -ID also consulted -Cultures pending -On vancomycin and cefepime, monitor for renal toxicity -Continue IV fluids at 1 30 mL an hour -Oncology consulted pending recommendations Resolved: Sinus tachycardia DVT ppx: Lovenox Code status: Full code Anticipated discharge place: Pending clinical course Anticipated discharge time: Pending clinical course Objective - Vital Signs Vital signs: Vital Signs Temp 98.0 F 04/15/23 07:11 Pulse 90 04/15/23 07:11 Resp 17 04/15/23 08:00 BP 104/73 04/15/23 07:11 Pulse Ox 99 04/15/23 09:21 FiO2 Intake & Output 04/14/23 04/15/23 04/15/23 18:59 06:59 18:59 Weight 77.111 kg 77.111 kg Other: Voiding Method Toilet # Voids 2 - Labs CBC & Chem 7: 04/15/23 07:06 04/15/23 07:06 Labs: Abnormal Lab Results - Last 24 Hours (Table) 04/15/23 04/15/23 Range/Units 07:06 07:06 WBC 16.7 H (3.8-10.6) k/uL RBC 3.35 L (3.80-5.40) m/uL Hgb 10.2 L (11.4-16.0) gm/dL Hct 31.2 L (34.0-46.0) % RDW 15.8 H (11.5-15.5) % Plt Count 122 L (150-450) k/uL Neutrophils # 14.7 H (1.3-7.7) k/uL Chloride 111 H (98-107) mmol/L BUN 5 L (7-17) mg/dL Glucose 100 H (74-99) mg/dL Calcium 7.6 L (8.4-10.2) mg/dL Total Protein 5.1 L (6.3-8.2) g/dL Albumin 2.8 L (3.5-5.0) g/dL Microbiology - Last 24 Hours (Table) 04/14/23 12:18 Gram Stain - Preliminary Breast - Left
--- NOTE | 2023-04-15 15:47 | P.CONS ---
History of Present Illness - Reason for Consult Consult date: 04/15/23 hx breast cancer Requesting physician: Cale Llanes - Chief Complaint fever - History of Present Illness Patient is a 32-year-old female with a significant history of invasive ductal carcinoma. She is a patient of Dr. Lu. She had bilateral mastectomy in December 2022. She has completed her 3rd cycle of Taxotere and Cytoxan on 03/31/2023. Patient reports yesterday she had cold sweats. Today she woke up feeling warm and had a temperature of 101.8 and was also experiencing left upper shoulder externally pain and left breast pain. Patient also reports drainage from left breast yesterday. Upon arrival patient had a temperature of 102.7. Ultrasound of the left breast revealed edematous subcutaneous fat. Underlying collapsed tissue housing case manager was also demonstrated. No abnormal fluid collection identified. CT chest revealed bilateral mastectomy changes with deflated breast implants. Small fluid collection around the right breast implant could be secondary to extra/intracapsular rupture. The left breast implant is also deflated with gas around the implant. No definitive organizing fluid collection on the left implant noted. Organizing fluid collection from the right implant. The right fluid collection possibly correlates with ultrasound findings on 02/18/23 of simple fluid. ID following. Patient has been started on cefepime and vancomycin. Surgery has also been consulted and have spoke with patient's breast surgeon Dr. Mike who does not recommend removing expanders at this time. Dr. Mike recommended continuing IV antibiotics at this time and will evaluate patient on Tuesday for further recommendations. Patient has been following up with wound care for ongoing left breast wound. Today hemoglobin is 10.2 and WBC 16,700. Patient has been afebrile for last 24 hours. Breast wound culture pending Review of Systems 10 point ROS is negative except as stated in the HPI Past Medical History Past Medical History: Cancer Additional Past Medical History / Comment(s): breast cancer current History of Any Multi-Drug Resistant Organisms: None Reported Past Surgical History: Breast Surgery Additional Past Surgical History / Comment(s): urethral mass removed. Right breast biopsy 2019 left breast biopsy 10/18/2022 Past Anesthesia/Blood Transfusion Reactions: No Reported Reaction Smoking Status: Former smoker Medications and Allergies Home Medications Medication Instructions Recorded Confirmed Type traZODone HCL [Desyrel] 50 - 75 mg PO HS PRN 10/18/22 04/14/23 History Brexpiprazole [Rexulti] 1 mg PO HS 12/23/22 04/14/23 History Escitalopram [Lexapro] 20 mg PO DAILY 12/23/22 04/14/23 History hydrOXYzine pamoate [Vistaril] 25 mg PO BID PRN 12/23/22 04/14/23 History OLANZapine [ZyPREXA] 2.5 mg PO HS PRN 02/18/23 04/14/23 History Ondansetron [Zofran] 4 mg PO Q4H PRN 02/18/23 04/14/23 History Prochlorperazine [Compazine] 10 mg PO Q6H PRN 04/14/23 04/14/23 History dexAMETHasone [Decadron] 4 - 8 mg PO DIRECTED 04/14/23 04/14/23 History Allergies Allergy/AdvReac Type Severity Reaction Status Date / Time No Known Allergies Allergy Verified 04/14/23 14:17 Physical Exam Vitals: Vital Signs Temp Pulse Pulse Resp BP BP Pulse Ox 04/15/23 09:21 99 04/15/23 08:00 17 04/15/23 07:11 98.0 F 90 17 104/73 97 04/15/23 02:00 98.8 F 94 95/62 95 04/14/23 22:20 99.4 F 96 17 106/74 98 04/14/23 21:17 98.7 F 101 H 18 98 04/14/23 21:12 98 04/14/23 20:00 105 H 18 112/70 99 04/14/23 19:00 90 18 98 04/14/23 18:14 80 18 110/76 98 04/14/23 17:00 100 18 107/71 98 04/14/23 15:27 87 18 98 04/14/23 14:51 98.4 F 101 H 18 107/65 98 04/14/23 11:23 102.7 F H 124 H 20 79/51 95 Intake and Output 04/14/23 04/15/23 04/15/23 22:59 06:59 14:59 Other: Voiding Method Toilet # Voids 2 Weight 77.111 kg left breast indurated and tender - Constitutional General appearance: average body habitus, no acute distress - EENT Eyes: anicteric sclerae ENT: hearing grossly normal - Respiratory Respiratory: bilateral: CTA - Cardiovascular Rhythm: regular Heart sounds: normal: S1, S2 Abnormal Heart Sounds: no systolic murmur, no diastolic murmur, no rub, no S3 Gallop, no S4 Gallop, no click, no other - Integumentary left breast wound present with erythema and purulent drainage noted. Integumentary: no cyanotic, no rash - Neurologic Neurologic: CNII-XII intact - Musculoskeletal Musculoskeletal: strength equal bilaterally - Psychiatric Psychiatric: A&O x's 3, appropriate affect, intact judgment & insight Results CBC & Chem 7: 04/15/23 07:06 04/15/23 07:06 Labs: Abnormal Lab Results - Last 24 Hours (Table) 04/14/23 04/14/23 04/15/23 Range/Units 12:04 12:04 07:06 WBC 31.4 H 16.7 H (3.8-10.6) k/uL RBC 3.35 L (3.80-5.40) m/uL Hgb 10.2 L (11.4-16.0) gm/dL Hct 31.2 L (34.0-46.0) % RDW 15.8 H 15.8 H (11.5-15.5) % Plt Count 122 L (150-450) k/uL Neutrophils # 29.4 H 14.7 H (1.3-7.7) k/uL Lymphocytes # 0.7 L (1.0-4.8) k/uL Monocytes # 1.1 H (0-1.0) k/uL Sodium 135 L (137-145) mmol/L Chloride (98-107) mmol/L BUN (7-17) mg/dL Glucose 114 H (74-99) mg/dL Calcium 8.3 L (8.4-10.2) mg/dL ALT 35 H (4-34) U/L Total Protein (6.3-8.2) g/dL Albumin (3.5-5.0) g/dL 04/15/23 Range/Units 07:06 WBC (3.8-10.6) k/uL RBC (3.80-5.40) m/uL Hgb (11.4-16.0) gm/dL Hct (34.0-46.0) % RDW (11.5-15.5) % Plt Count (150-450) k/uL Neutrophils # (1.3-7.7) k/uL Lymphocytes # (1.0-4.8) k/uL Monocytes # (0-1.0) k/uL Sodium (137-145) mmol/L Chloride 111 H (98-107) mmol/L BUN 5 L (7-17) mg/dL Glucose 100 H (74-99) mg/dL Calcium 7.6 L (8.4-10.2) mg/dL ALT (4-34) U/L Total Protein 5.1 L (6.3-8.2) g/dL Albumin 2.8 L (3.5-5.0) g/dL Microbiology - Last 24 Hours (Table) 04/14/23 12:18 Gram Stain - Preliminary Breast - Left Comments: breast ultrasound reviewed CT scan - chest: report reviewed Assessment and Plan (1) Breast cancer, left Current Visit: Yes Status: Acute Priority: High Code(s): C50.912 - MALIGNANT NEOPLASM OF UNSPECIFIED SITE OF LEFT FEMALE BREAST SNOMED Code(s): 874414984 (2) Breast wound Current Visit: Yes Status: Acute Priority: High Code(s): S21.009A - UNSPECIFIED OPEN WOUND OF UNSPECIFIED BREAST, INIT ENCNTR SNOMED Code(s): 84042704 Plan: Breast wound/abscess: -Ultrasound of the left breast revealed edematous subcutaneous fat. Underlying collapsed tissue housing case manager was also demonstrated. No abnormal fluid collection identified. CT chest revealed bilateral mastectomy changes with deflated breast implants. Small fluid collection around the right breast implant could be secondary to extra/intracapsular rupture. The left breast implant is also deflated with gas around the implant. No definitive organizing fluid collection on the left implant noted. Organizing fluid collection from the right implant. The right fluid collection possibly correlates with ultrasound findings on 02/18/23 of simple fluid. -ID and surgery have been consulted. Started on cefepime and vancomycin. Patient's breast surgeon, Dr. Mike does not recommend removing expanders at t his time but to continue IV antibiotics at this time and will evaluate patient on Tuesday for further recommendations. -Will defer to ID/surgery for management Breast cancer: -Hx grade 2,invasive ductal carcinoma, ER+, HER2/IRVIN negative -Bilateral masectomy Februray 2022 -S/p completion cycle 3 of Taxotere and Cytoxan with neulasta on 03/31/2023. Cycle 4 scheduled for 04/21, will likely have to reschedule until acute condition resolves. Will reevaluate patient in clinic upon discharge to reassess before progressing to cycle 4. Pt updated on POC
[2023-04-15] MEDS: Brexpiprazole [Rexulti] 1 MG Tablet PO SCH (21:12)
--- NOTE | 2023-04-15 22:28 | P.CONS ---
History of Present Illness - Reason for Consult Consult date: 04/15/23 Infected left chest wall seroma Requesting physician: Bjorn Albert - Chief Complaint Left breast pain and swelling x one day - History of Present Illness Patient is a 32-year-old female with a past medical history significant for breast cancer in this patient who is status post bilateral skin sparing mastectomy and reconstruction and did have a implant placement patient was admitted to the hospital about 2 months ago with a right breast possible abscess treated with IV followed by oral by therapy patient mention she did have a drainage of seroma twice since then the patient right breast is doing okay however the patient noticed to having increasing pain swelling redness to the left breast area and started having a fever along with body aches patient had did have a nonhealing wound to the left breast area under the care of of her surgeon and noticed to have increasing drainage from the left breast along with some dull aching pain about 5 chemoradiation with the symptoms patient was evaluated by the ER physician on arrival to the ER patient did have a fever of 102. 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 no abnormal fluid collection is identified patient also have a CT of the chest bilateral mastectomy changes with deflated breast implants small fluid collection around right breast implant left breast implant is also deflated with gas around the implant but no organizing fluid collection, patient did have cultures obtained from the left breast fold area patient was started on cefepime and vancomycin infectious disease was consulted for further management of antibiotic therapy Review of Systems Positive point and negatives has been mentioned in the HPI, complete review of systems was performed and all other systems are negative Past Medical History Past Medical History: Cancer Additional Past Medical History / Comment(s): breast cancer current History of Any Multi-Drug Resistant Organisms: None Reported Past Surgical History: Breast Surgery Additional Past Surgical History / Comment(s): urethral mass removed. Right breast biopsy 2018 left breast biopsy 10/18/2022 Past Anesthesia/Blood Transfusion Reactions: No Reported Reaction Smoking Status: Former smoker Medications and Allergies Home Medications Medication Instructions Recorded Confirmed Type traZODone HCL [Desyrel] 50 - 75 mg PO HS PRN 10/18/22 04/14/23 History Brexpiprazole [Rexulti] 1 mg PO HS 12/23/22 04/14/23 History Escitalopram [Lexapro] 20 mg PO DAILY 12/23/22 04/14/23 History hydrOXYzine pamoate [Vistaril] 25 mg PO BID PRN 12/23/22 04/14/23 History OLANZapine [ZyPREXA] 2.5 mg PO HS PRN 02/18/23 04/14/23 History Ondansetron [Zofran] 4 mg PO Q4H PRN 02/18/23 04/14/23 History Prochlorperazine [Compazine] 10 mg PO Q6H PRN 04/14/23 04/14/23 History dexAMETHasone [Decadron] 4 - 8 mg PO DIRECTED 04/14/23 04/14/23 History Allergies Allergy/AdvReac Type Severity Reaction Status Date / Time No Known Allergies Allergy Verified 04/14/23 14:17 Physical Exam Vitals: Vital Signs Temp Pulse Pulse Resp BP BP Pulse Ox 04/15/23 09:21 99 04/15/23 07:11 98.0 F 90 17 104/73 97 04/15/23 02:00 98.8 F 94 95/62 95 04/14/23 22:20 99.4 F 96 17 106/74 98 04/14/23 21:17 98.7 F 101 H 18 98 04/14/23 21:12 98 04/14/23 20:00 105 H 18 112/70 99 04/14/23 19:00 90 18 98 04/14/23 18:14 80 18 110/76 98 04/14/23 17:00 100 18 107/71 98 04/14/23 15:27 87 18 98 04/14/23 14:51 98.4 F 101 H 18 107/65 98 04/14/23 11:23 102.7 F H 124 H 20 79/51 95 Intake and Output 04/14/23 04/15/23 04/15/23 22:59 06:59 14:59 Other: # Voids 2 Weight 77.111 kg GENERAL DESCRIPTION: Middle-aged female lying in bed, no distress. No tachypnea or accessory muscle of respiration use. HEENT: Shows Pallor , no scleral icterus. Oral mucous membrane is dry. No pharyngeal erythema or thrush NECK: Trachea central, no thyromegaly. LUNGS: Unlabored breathing. Clear to auscultation anteriorly. No wheeze or crackle. HEART: S1, S2, regular rate and rhythm. No loud murmur ABDOMEN: Soft, no tenderness , guarding or rigidity, no organomegaly EXTREMITIES: No edema of feet. SKIN: Left breast wound post reconstruction with no significant slough tissue no significant induration or drainage. NEUROLOGICAL: The patient is awake, alert, oriented x3, mood and affect normal. Results CBC & Chem 7: 04/15/23 07:06 04/15/23 07:06 Labs: Abnormal Lab Results - Last 24 Hours (Table) 04/14/23 04/14/23 04/15/23 Range/Units 12:04 12:04 07:06 WBC 31.4 H 16.7 H (3.8-10.6) k/uL RBC 3.35 L (3.80-5.40) m/uL Hgb 10.2 L (11.4-16.0) gm/dL Hct 31.2 L (34.0-46.0) % RDW 15.8 H 15.8 H (11.5-15.5) % Plt Count 122 L (150-450) k/uL Neutrophils # 29.4 H 14.7 H (1.3-7.7) k/uL Lymphocytes # 0.7 L (1.0-4.8) k/uL Monocytes # 1.1 H (0-1.0) k/uL Sodium 135 L (137-145) mmol/L Chloride (98-107) mmol/L BUN (7-17) mg/dL Glucose 114 H (74-99) mg/dL Calcium 8.3 L (8.4-10.2) mg/dL ALT 35 H (4-34) U/L Total Protein (6.3-8.2) g/dL Albumin (3.5-5.0) g/dL 04/15/23 Range/Units 07:06 WBC (3.8-10.6) k/uL RBC (3.80-5.40) m/uL Hgb (11.4-16.0) gm/dL Hct (34.0-46.0) % RDW (11.5-15.5) % Plt Count (150-450) k/uL Neutrophils # (1.3-7.7) k/uL Lymphocytes # (1.0-4.8) k/uL Monocytes # (0-1.0) k/uL Sodium (137-145) mmol/L Chloride 111 H (98-107) mmol/L BUN 5 L (7-17) mg/dL Glucose 100 H (74-99) mg/dL Calcium 7.6 L (8.4-10.2) mg/dL ALT (4-34) U/L Total Protein 5.1 L (6.3-8.2) g/dL Albumin 2.8 L (3.5-5.0) g/dL Microbiology - Last 24 Hours (Table) 04/14/23 12:18 Gram Stain - Preliminary Breast - Left Assessment and Plan Plan: 1patient was in the hospital with sepsis in this patient who did have a fever tachycardia elevated white count source is likely left breast cellulitis/wound infection as there was no evidence of any organizing fluid or breast as the patient did have both a CT as well as ultrasound of the left breast area and will need to cover for both gram-positive skin sandy as well as gram-negative pathogen. 2vancomycin pharmacy to dose with a target trough of 15 while watching kidney function and Vanco trough closely along with cefepime should provide adequate antibiotic coverage 3-local wound care with a dry Aquacel silver dressing change every 48 hours We will follow on clinical condition and cultures to further adjust medication if needed Thank you for this consultation we will follow the patient along with you Time with Patient: Greater than 30
[2023-04-16] MEDS: SODIUM CHLORIDE 0.9% 1,000 ML IV SCH ×3 (02:30→18:08)
[2023-04-16] MEDS: VANCOMYCIN 1,500 MG in SODIUM CHLORIDE 0.9% 500 ML 500 ML IVPB SCH ×3 (02:30→17:53)
--- NOTE | 2023-04-16 07:01 | P.PN ---
Progress Note - Text Progress Note Date: 04/16/23 The patient states she feels better today. She had less pain and swelling of her left breast. On exam there appears to be very minimal was silent changes of the left breast. Left breast implant family court justice infection. Patient can receive IV antibiotics. She'll be closely observed.
[2023-04-16] MEDS: CEFEPIME 2 GM in SODIUM CHLORIDE 0.9% 100 ML IVPB SCH ×2 (07:44→15:21)
[2023-04-16] MEDS: ESCITALOPRAM 20 MG TAB PO SCH (07:45)
[2023-04-16] MEDS: ENOXAPARIN 40 MG/0.4 ML SYRINGE SQ SCH (07:45)
[2023-04-16] MEDS ORDERED: VANCOMYCIN TROUGH DUE 1 EACH MISC MISCELLANE ONE (09:00)
--- NOTE | 2023-04-16 10:00 | P.PN ---
Subjective Progress Note Date: 04/16/23 Principal diagnosis: Left breast wound and cellulitis Patient is a 32-year-old female with a past medical history significant for breast cancer in this patient who is status post bilateral mastectomy and implant presenting to the hospital with sepsis patient did have a left breast wound and cellulitis CT was negative for any abscess. On today's evaluation that is 04/16/2023, the patient denies having any fever or any chills patient is breathing comfortably pain to the left breast is decreased intensity denies any chest pain shortness of breath or cough no abdominal pain or diarrhea Objective - Vital Signs Vital signs: Vital Signs Temp 98.2 F 04/16/23 01:45 Pulse 74 04/16/23 01:45 Resp 18 04/16/23 01:45 BP 98/66 04/16/23 01:45 Pulse Ox 97 04/16/23 01:45 FiO2 Intake & Output 04/15/23 04/16/23 04/16/23 18:59 06:59 18:59 Intake Total 1200 Balance 1200 Intake: Intake, IV Titration 1000 Amount Vancomycin 1,500 mg In 500 Sodium Chloride 0.9% 500 ml 500 ml @ 167 mls/hr IVPB Q12H [facility] Rx#: [id number] Vancomycin 1,500 mg In 500 Sodium Chloride 0.9% 500 ml 500 ml @ 167 mls/hr IVPB Q8H [facility] Rx#: [id number] Oral 200 Other: Voiding Method Toilet Toilet # Voids 4 2 - Exam GENERAL DESCRIPTION: Middle-aged female lying in bed in no distress RESPIRATORY SYSTEM: Unlabored breathing , clear to auscultation anteriorly HEART: S1 S2 regular rate and rhythm , ABDOMEN: Soft , no tenderness EXTREMITIES: No edema feet - Labs CBC & Chem 7: 04/15/23 07:06 04/15/23 07:06 Labs: Abnormal Lab Results - Last 24 Hours (Table) 04/15/23 04/15/23 Range/Units 07:06 07:06 WBC 16.7 H (3.8-10.6) k/uL RBC 3.35 L (3.80-5.40) m/uL Hgb 10.2 L (11.4-16.0) gm/dL Hct 31.2 L (34.0-46.0) % RDW 15.8 H (11.5-15.5) % Plt Count 122 L (150-450) k/uL Neutrophils # 14.7 H (1.3-7.7) k/uL Chloride 111 H (98-107) mmol/L BUN 5 L (7-17) mg/dL Glucose 100 H (74-99) mg/dL Calcium 7.6 L (8.4-10.2) mg/dL Total Protein 5.1 L (6.3-8.2) g/dL Albumin 2.8 L (3.5-5.0) g/dL Assessment and Plan (1) Breast wound Current Visit: Yes Status: Acute Priority: High Code(s): S21.009A - UNSPECIFIED OPEN WOUND OF UNSPECIFIED BREAST, INIT ENCNTR SNOMED Code(s): 71695141 (2) Sepsis Current Visit: Yes Status: Acute Code(s): A41.9 - SEPSIS, UNSPECIFIED ORGANISM SNOMED Code(s): 24064314 (3) Breast abscess Current Visit: No Status: Acute Priority: High Code(s): N61.1 - ABSCESS OF THE BREAST AND NIPPLE SNOMED Code(s): 55548125 Plan: 1patient was in the hospital with sepsis in this patient who did have a fever tachycardia elevated white count source is likely left breast cellulitis/wound infection as there was no evidence of any organizing fluid or breast as the patient did have both a CT as well as ultrasound of the left breast area and will need to cover for both gram-positive skin sandy as well as gram-negative pa thogen. 2patient to continue with vancomycin pharmacy to dose with a target trough of 15 while watching kidney function and Vanco trough closely along with cefepime while waiting for the cultures to finalize 3-local wound care with a dry Aquacel silver dressing change every 48 hours Time with Patient: Less than 30
[2023-04-16 10:02] LABS: African American GFR (CKD) >90 (>60 ml/min/1.73 sqM); Non-African American GFR(CKD) >90 (>60 ml/min/1.73 sqM)
--- NOTE | 2023-04-16 12:46 | P.PN ---
Subjective Progress Note Date: 04/16/23 Hospital Course: 32-year-old female with history of breast cancer and depression, presenting with fevers. In the ED, her temperature was 102.7, tachycardic to 124, respiratory rate 20, blood pressure 79/51, saturating at 94% on room air. WBC 31.4, sodium 135, lactate 1.5, creatinine 0.9. Respiratory Viral panel was negative, urinalysis was negative. Chest x-ray did not show any acute process. EKG shows sinus tachycardia. 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 Surgery and oncology consulted. ID also consulted. Currently on IV antibiotics. Subjective: Seen and examined at bedside. No acute events overnight. No new complaints Pertinent positives and negatives as discussed above, a complete review of systems was performed and all other systems are negative. Vitals Signs Reviewed. General: nontoxic, no distress, appears at stated age Derm: warm, dry, breast tissue not observed Head: atraumatic, normocephalic, symmetric Eyes: EOMI, no lid lag, anicteric sclera, pupils equal round reactive to light ENT: Nose and ears atraumatic Neck: No thyromegaly, supple Mouth: no lip lesion, mucus membranes moist Cardiovascular: S1S2 reg, no murmur, no edema Lungs: clear to auscultation bilateral, no rhonchi, no rales, no wheeze, no accessory muscle use Abdominal: soft, nontender to palpation, no guarding, no appreciable orga nomegaly Ext: no gross muscle atrophy, muscle strength muscle strength 5 out of 5 in all 4 extremities, no contractures Neuro: CN II-XII grossly intact Psych: Alert, oriented, appropriate affect Data Reviewed Today: Pertinent Labs: Creatinine 0.55, CBC pending will be reviewed when available Assessment and Plan: Active: Sepsis secondary to likely left breast implant molecular biologist infection Recent diagnosis of breast cancer status post bilateral mastectomy and chemotherapy -Surgery note reviewed, continue IV antibiotics, plastic surgery to see patient on Tuesday -ID note reviewed. Continue current antibiotics -Cultures pending -On vancomycin and cefepime, monitor for renal toxicity -Continue IV fluids at 1 30 mL an hour -Oncology consulted, likely outpatient follow-up Resolved: Sinus tachycardia DVT ppx: Lovenox Code status: Full code Anticipated discharge place: Pending clinical course Anticipated discharge time: Pending clinical course Objective - Vital Signs Vital signs: Vital Signs Temp 98.4 F 04/16/23 08:10 Pulse 78 04/16/23 08:10 Resp 18 04/16/23 08:10 BP 100/68 04/16/23 08:10 Pulse Ox 97 04/16/23 08:10 FiO2 Intake & Output 04/15/23 04/16/23 04/16/23 18:59 06:59 18:59 Intake Total 1200 Balance 1200 Intake: Intake, IV Titration 1000 Amount Vancomycin 1,500 mg In 500 Sodium Chloride 0.9% 500 ml 500 ml @ 167 mls/hr IVPB Q12H [facility] Rx#: [id number] Vancomycin 1,500 mg In 500 Sodium Chloride 0.9% 500 ml 500 ml @ 167 mls/hr IVPB Q8H [facility] Rx#: [id number] Oral 200 Other: Voiding Method Toilet Toilet # Voids 4 2 - Labs CBC & Chem 7: 04/15/23 07:06 04/16/23 09:20
[2023-04-16 13:32] LABS: Basophils # (A) 0.09 X 10*3/uL (0.00-0.10); Basophils % (A) 0.9 %; Eosinophils # (A) 0.01 X 10*3/uL (0.04-0.35); Eosinophils % (A) 0.1 %; HCT 30.2 % (37.2-46.3); HGB 9.6 d/dL (12.0-15.0); Lymphocytes # (A) 0.82 X 10*3/uL (0.90-5.00); Lymphocytes % (A) 8.1 %; MCH 30.1 pg (27.0-32.0); MCHC 31.8 d/dL (32.0-37.0); MCV 94.7 FL (80.0-97.0); Monocytes # (A) 0.73 X 10*3/uL (0.20-1.00); Monocytes % (A) 7.2 %; NRBC Per 100 WBC 0 X 10*3/uL (0.00-0.01); Neutrophils # (A) 8.46 X 10*3/uL (1.80-7.70); Neutrophils % (A) 83.1 %; Platelet Count 144 X 10*3/uL (140-440); RBC 3.19 X 10*6/uL (4.10-5.20); RDW 15.4 % (11.5-14.5); WBC 10.17 X 10*3/uL (4.50-10.00)
[2023-04-16] MEDS: Brexpiprazole [Rexulti] 1 MG Tablet PO SCH (21:33)
[2023-04-17] MEDS: CEFEPIME 2 GM in SODIUM CHLORIDE 0.9% 100 ML IVPB SCH ×2 (01:12→10:07)
[2023-04-17] MEDS: VANCOMYCIN 1,500 MG in SODIUM CHLORIDE 0.9% 500 ML 500 ML IVPB SCH ×2 (01:12→10:08)
[2023-04-17] MEDS: SODIUM CHLORIDE 0.9% 1,000 ML IV SCH ×3 (01:32→17:53)
--- NOTE | 2023-04-17 09:33 | P.PN ---
Progress Note - Text Progress Note Date: 04/17/23 The patient states she had increased pain in her left breast. She states she was able to manually express some fluid from the breast. She states the pain improved once she remove the fluid. On exam her vital signs appear stable. Left breast shows no sign lysed. There is evidence of a small opening in the lower portion of her open wound. The opening appears to be in 3-4 mm in size. Patient most likely related to seroma related to her infection. Patient will continue local wound care. Dr. 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
[2023-04-17] MEDS: ESCITALOPRAM 20 MG TAB PO SCH (10:07)
[2023-04-17] MEDS: ENOXAPARIN 40 MG/0.4 ML SYRINGE SQ SCH (10:07)
--- NOTE | 2023-04-17 10:52 | P.PN ---
Subjective Progress Note Date: 04/17/23 Hospital Course: 32-year-old female with history of breast cancer and depression, presenting with fevers. In the ED, her temperature was 102.7, tachycardic to 124, respiratory rate 20, blood pressure 79/51, saturating at 94% on room air. WBC 31.4, sodium 135, lactate 1.5, creatinine 0.9. Respiratory Viral panel was negative, urinalysis was negative. Chest x-ray did not show any acute process. EKG shows sinus tachycardia. 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 Surgery and oncology consulted. ID also consulted. Currently on IV antibiotics. Pending evaluation by her plastic surgeon on Tuesday. Subjective: Seen and examined at bedside. No acute events overnight. No new complaints. Still having some discharge from the left breast. Pertinent positives and negatives as discussed above, a complete review of systems was performed and all other systems are negative. Vitals Signs Reviewed. General: nontoxic, no distress, appears at stated age Derm: warm, dry, breast tissue not observed Head: atraumatic, normocephalic, symmetric Eyes: EOMI, no lid lag, anicteric sclera, pupils equal round reactive to light ENT: Nose and ears atraumatic Neck: No thyromegaly, supple Mouth: no lip lesion, mucus membranes moist Cardiovascular: S1S2 reg, no murmur, no edema Lungs: clear to auscultation bilateral, no rhonchi, no rales, no wheeze, no accessory muscle use Abdominal: soft, nontender to palpation, no guarding, no appreciable organomegaly Ext: no gross muscle atrophy, muscle strength muscle strength 5 out of 5 in all 4 extremities, no contractures Neuro: CN II-XII grossly intact Psych: Alert, oriented, appropriate affect Data Reviewed Today: Pertinent Labs: CBC and BMP pending, will be reviewed when available Wound culture shows MSSA Assessment and Plan: Active: Sepsis secondary to likely left breast implant first leveler infection Recent diagnosis of breast cancer status post bilateral mastectomy and chem otherapy Normocytic anemia, likely in the setting of acute infection -Surgery note reviewed, continue IV antibiotics, plastic surgery to see patient on Tuesday -ID following, continue current antibiotics -Cultures pending -On vancomycin and cefepime, monitor for renal toxicity -Continue IV fluids at 1 30 mL an hour -Oncology consulted, likely outpatient follow-up -No active bleeding, continue to monitor CBC Resolved: Sinus tachycardia DVT ppx: Lovenox Code status: Full code Anticipated discharge place: Home Anticipated discharge time: Pending clinical course Objective - Vital Signs Vital signs: Vital Signs Temp 98.8 F 04/17/23 08:24 Pulse 75 04/17/23 08:24 Resp 18 04/17/23 08:24 BP 98/62 04/17/23 08:24 Pulse Ox 97 04/17/23 08:24 FiO2 Intake & Output 04/16/23 04/17/23 04/17/23 18:59 06:59 18:59 Intake Total 550 Balance 550 Intake: Oral 550 Other: # Voids 3 2 - Labs CBC & Chem 7: 04/16/23 09:20 04/16/23 09:20 Labs: Abnormal Lab Results - Last 24 Hours (Table) 04/16/23 Range/Units 09:20 WBC 10.17 H (4.50-10.00) X 10*3/uL RBC 3.19 L (4.10-5.20) X 10*6/uL Hgb 9.6 L (12.0-15.0) d/dL Hct 30.2 L (37.2-46.3) % MCHC 31.8 L (32.0-37.0) d/dL RDW 15.4 H (11.5-14.5) % Neutrophils # 8.46 H (1.80-7.70) X 10*3/uL Lymphocytes # 0.82 L (0.90-5.00) X 10*3/uL Eosinophils # 0.01 L (0.04-0.35) X 10*3/uL Microbiology - Last 24 Hours (Table) 04/14/23 12:19 Blood Culture - Preliminary Blood 04/14/23 12:03 Blood Culture - Preliminary Blood 04/14/23 12:18 Gram Stain - Final Breast - Left Wound Culture - Final Staphylococcus aureus
[2023-04-17 10:57] LABS: African American GFR (CKD) >90 (>60 ml/min/1.73 sqM); Anion Gap 8 mmol/L; Blood Urea Nitrogen 5 mg/dL (7-17); Calcium 8.3 mg/dL (8.4-10.2); Carbon Dioxide 20 mmol/L (22-30); Chloride 110 mmol/L (98-107); Glucose 103 mg/dL (74-99); Non-African American GFR(CKD) >90 (>60 ml/min/1.73 sqM); Sodium 138 mmol/L (137-145)
[2023-04-17 10:58] LABS: Potassium 4.4 mmol/L (3.5-5.1)
[2023-04-17 11:12] LABS: Basophils % (A) 1 %; Eosinophils % (A) 0 %; HCT 32.7 % (34.0-46.0); HGB 10.8 gm/dL (11.4-16.0); Lymphocytes # (A) 0.8 k/uL (1.0-4.8); Lymphocytes % (A) 13 %; MCHC 32.9 g/dL (31.0-37.0); MCV 91.1 fL (80.0-100.0); Mean Platelet Volume 9.7; Monocytes # (A) 0.3 k/uL (0-1.0); Monocytes % (A) 5 %; Neutrophils # (A) 5.2 k/uL (1.3-7.7); Neutrophils % (A) 80 %; Platelet Count 171 k/uL (150-450); RBC 3.59 m/uL (3.80-5.40); RDW 15.9 % (11.5-15.5); WBC 6.5 k/uL (3.8-10.6)
[2023-04-17] MEDS: ACETAMINOPHEN TAB 325 MG TAB PO PRN (18:01)
[2023-04-17] MEDS: Brexpiprazole [Rexulti] 1 MG Tablet PO SCH (20:00)
[2023-04-18] MEDS: SODIUM CHLORIDE 0.9% 1,000 ML IV SCH ×4 (00:08→23:59)
--- NOTE | 2023-04-18 07:18 | P.PN ---
Subjective Progress Note Date: 04/17/23 Principal diagnosis: Left breast wound and cellulitis Patient is a 32-year-old female with a past medical history significant for breast cancer in this patient who is status post bilateral mastectomy and implant presenting to the hospital with sepsis patient did have a left breast wound and cellulitis CT was negative for any abscess. On today's evaluation that is 04/17/2023, the patient is afebrile , patient is breathing comfortably on room air, Pt pain to the left breast has decreased intensity denies any chest pain shortness of breath or cough no abdominal pain or diarrhea Objective - Vital Signs Vital signs: Vital Signs Temp 98.8 F 04/17/23 08:24 Pulse 75 04/17/23 08:24 Resp 18 04/17/23 08:24 BP 98/62 04/17/23 08:24 Pulse Ox 97 04/17/23 08:24 FiO2 Intake & Output 04/16/23 04/17/23 04/17/23 18:59 06:59 18:59 Intake Total 550 Balance 550 Intake: Oral 550 Other: # Voids 3 2 - Exam GENERAL DESCRIPTION: Middle-aged female lying in bed in no distress RESPIRATORY SYSTEM: Unlabored breathing , clear to auscultation anteriorly HEART: S1 S2 regular rate and rhythm , ABDOMEN: Soft , no tenderness L breast swelling and redness has decreased - Labs CBC & Chem 7: 04/17/23 10:14 04/17/23 10:14 Labs: Abnormal Lab Results - Last 24 Hours (Table) 04/16/23 04/17/23 04/17/23 Range/Units 09:20 10:14 10:14 WBC 10.17 H (4.50-10.00) X 10*3/uL RBC 3.19 L 3.59 L (4.10-5.20) X 10*6/uL Hgb 9.6 L 10.8 L (12.0-15.0) d/dL Hct 30.2 L 32.7 L (37.2-46.3) % MCHC 31.8 L (32.0-37.0) d/dL RDW 15.4 H 15.9 H (11.5-14.5) % Neutrophils # 8.46 H (1.80-7.70) X 10*3/uL Lymphocytes # 0.82 L 0.8 L (0.90-5.00) X 10*3/uL Eosinophils # 0.01 L (0.04-0.35) X 10*3/uL Chloride 110 H (98-107) mmol/L Carbon Dioxide 20 L (22-30) mmol/L BUN 5 L (7-17) mg/dL Creatinine 0.51 L (0.52-1.04) mg/dL Glucose 103 H (74-99) mg/dL Calcium 8.3 L (8.4-10.2) mg/dL Microbiology - Last 24 Hours (Table) 04/14/23 12:19 Blood Culture - Preliminary Blood 04/14/23 12:03 Blood Culture - Preliminary Blood 04/14/23 12:18 Gram Stain - Final Breast - Left Wound Culture - Final Staphylococcus aureus Assessment and Plan (1) Breast wound Current Visit: Yes Status: Acute Priority: High Code(s): S21.009A - UNSPECIFIED OPEN WOUND OF UNSPECIFIED BREAST, INIT ENCNTR SNOMED Code(s): 42248001 (2) Sepsis Current Visit: Yes Status: Acute Code(s): A41.9 - SEPSIS, UNSPECIFIED ORGANISM SNOMED Code(s): 97550227 (3) Breast abscess Current Visit: No Status: Acute Priority: High Code(s): N61.1 - ABSCESS OF THE BREAST AND NIPPLE SNOMED Code(s): 38771665 Plan: 1patient was in the hospital with sepsis in this patient who did have a fever tachycardia elevated white count source is likely left breast cellulitis/wound infection as there was no evidence of any organizing fluid or breast as the patient did have both a CT as well as ultrasound of the left breast area and will need to cover for both gram-positive skin sandy as well as gram-negative pathogen. 2-local wound care with a dry Aquacel silver dressing change every 48 hours 3- Cultures did grew MSSA , antibiotics switched to cefazolin , outpatient antibiotics as well as need for removal of implant discussed with pt , who will discuss it with surgeon tomorrow Time with Patient: Less than 30
[2023-04-18] MEDS: ESCITALOPRAM 20 MG TAB PO SCH (08:53)
[2023-04-18] MEDS: ENOXAPARIN 40 MG/0.4 ML SYRINGE SQ SCH (08:54)
[2023-04-18] MEDS ORDERED: VANCOMYCIN TROUGH DUE 1 EACH MISC MISCELLANE ONE (09:00)
--- NOTE | 2023-04-18 10:47 | P.CON ---
Consult Note - . Consult date: 04/18/23 Assessment/Plan:: The patient was seen and evaluated per her request. She was recently admitted for left-sided reconstructive breast cellulitis with draining wound area the patient is well-known to me. She is responded favorably to IV antibiotics and continue local wound care with silver alginate. The patient was seen and evaluated bedside today. 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 There is no surrounding erythema no significant discharge no purulent discharge. I've counseled patient undergo closure of this wound and efforts to salvage the reconstruction. She is aware potential risks and complications and procedures given her consent.
[2023-04-18] MEDS ORDERED: IV FLUID CONTINUATION 500 ML IV ONE (13:00)
[2023-04-18] MEDS ORDERED: ONDANSETRON 4 MG/2 ML VIAL ONE (13:18)
[2023-04-18] MEDS ORDERED: ONDANSETRON 4 MG/2 ML VIAL IVP ONE (13:21)
[2023-04-18] MEDS ORDERED: DEXAMETHASONE SOD PHOSPHATE 4 MG/ML 1 ML VIAL IVP ONE (13:22)
--- NOTE | 2023-04-18 14:56 | P.PN ---
Subjective Progress Note Date: 04/18/23 Principal diagnosis: Left chest wound Over the weekend a small opening at the superior aspect of the left breast wound apparently got slightly larger. Further serous drainage was noted. Patient was seen by plastic surgery this morning. Apparently the sql server dba can be visualized through the small wound site. Is scheduled to undergo intraoperative assessment of the sql server dba this afternoon. She still wants to go home later today. Objective - Vital Signs Vital signs: Vital Signs Temp 97.6 F 04/18/23 13:00 Pulse 75 04/18/23 13:00 Resp 6 L 04/18/23 13:00 BP 99/56 04/18/23 13:00 Pulse Ox 96 04/18/23 13:00 FiO2 Intake & Output 04/17/23 04/18/23 04/18/23 18:59 06:59 18:59 Other: Voiding Method Toilet # Voids 7 2 # Bowel Movements 1 - Exam Left chest wall dressing in place - Labs CBC & Chem 7: 04/17/23 10:14 04/17/23 10:14 Labs: Microbiology - Last 24 Hours (Table) 04/14/23 12:19 Blood Culture - Preliminary Blood 04/14/23 12:03 Blood Culture - Preliminary Blood Assessment and Plan (1) Breast wound Narrative/Plan: Continue antibiotics. Await surgery this afternoon by plastic surgery. Disposition to follow. Current Visit: Yes Status: Acute Priority: High Code(s): S21.009A - UNSPECIFIED OPEN WOUND OF UNSPECIFIED BREAST, INIT ENCNTR SNOMED Code(s): 75961916
[2023-04-18] MEDS ORDERED: DAPTOmycin 500 MG in SODIUM CHLORIDE 0.9% 50 ML IVPB SCH (15:00)
[2023-04-18] MEDS ORDERED: MIDAZOLAM 2 MG/2 ML VIAL ONE (16:58)
[2023-04-18] MEDS ORDERED: SUCCINYLCHOLINE CHLORIDE 200 MG/10 ML VIAL IV ONE (16:58)
[2023-04-18] MEDS ORDERED: ceFAZolin 1,000 MG VIAL ONE (16:58)
[2023-04-18] MEDS ORDERED: SODIUM CHLORIDE 0.9% 100 ML BAG ONE (16:58)
[2023-04-18] MEDS ORDERED: LIDOCAINE 2% INJ 20 MG/ML (2 ML VIAL) ONE (16:58)
[2023-04-18] MEDS ORDERED: PROPOFOL 10 MG/ML 20 ML VIAL IV ONE (16:58)
[2023-04-18] MEDS ORDERED: fentaNYL (PF) 50 MCG/ML 2 ML AMP ONE (16:58)
[2023-04-18] MEDS ORDERED: LACTATED RINGERS 1,000 ML IV ONE (17:17)
[2023-04-18] MEDS ORDERED: SODIUM CHLORIDE 0.9% 50 ML with ceFAZolin 2,000 MG IV ONE ×2 (17:17)
--- NOTE | 2023-04-18 19:00 | P.DS ---
Providers Date of admission: 04/14/23 14:49 Expected date of discharge: 04/18/23 Attending physician: Sergio Llamas MD Consults: 04/14/23 14:49 Consult Physician Urgent Consulting Provider: Bjorn Albert Consult Reason/Comments: Breast wound Do you want consulting provider notified?: Yes Consult Physician Urgent Consulting Provider: Vika Lu Consult Reason/Comments: Oncological care, sepsis Do you want consulting provider notified?: Yes 04/15/23 09:19 Consult Physician Routine Consulting Provider: Dylan Block Consult Reason/Comments: Infected left chest wall seroma Do you want consulting provider notified?: Yes 04/18/23 08:16 Consult Physician Routine Consulting Provider: Tono Mike Consult Reason/Comments: breast infection Do you want consulting provider notified?: Yes Primary care physician: Stated None Hospital Course: This will serve as progress note as plastic surgeon wanted patient monitored overnight after surgery. 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 On arrival to the ER she underwent an extensive evaluation. Her initial vital signs showed a temperature of 102.7 and a pulse of 124 with a blood pressure 79/51. Laboratory analysis was remarkable for white blood cell count of 31.4, sodium 135, glucose 114, urinalysis negative, influenza A/B/RC/COVID-19 PCR were negative. Chest x-ray showed no acute process. Breast ultrasound showed no fluid collection with edematous surrounding tissue. Patient was admitted for possible cellulitis and infection of left breast implant. She was started on cefepime and vancomycin. General surgery and infectious disease were consulted. She underwent CT chest which showed small fluid collection surrounding the right breast implant possibly secondary to intraoperative versus extracapsular rupture, the left breast implant with gas around the implant and no definitive organizing fluid collection on the left, right fluid collection possibly correlates with ultrasound finding on 02/18/23 of simple fluid. Oncology was consulted. Cultures were obtained which showed MSSA. Patient had improvement in her white blood cell count. She was doing well. She was seen by plastics who recommneded closue of the wound in the OR. Given attempts to retain breast valet attendant ID recommneds Midline placement with 1-2 weeks of daptomycin which will be completed at his office. Oncology has recommended delaying her next chemo treatment. Follow-up: Dr. Block in 1 week, Dr. Mike as directed, and Dr. Amaya as directed. Patient seen and examined at bedside. No chest pain, SOB, nuasea. She wants to go home. Vital signs reviewed and stable. General: nontoxic, no distress, appears at stated age Derm: Left breast with 1/2 dollar sized lesion without drainage or erythema noted, edges with healing of secondary intention Cardiovascular: S1S2 reg, no murmur, positive posterior tibial pulse bilateral, Lungs: CTA bilateral, no rhonchi, no rales , no accessory muscle use Abdominal: soft, nontender to palpation, no guarding, no appreciable organomegaly Ext: no gross muscle atrophy, no edema b/l lower extremities, no contractures Neuro: CN II-XI grossly intact, no focal neuro deficits Psych: Alert, oriented, appropriate affect A total of 47 minutes of time were spent preparing this complex discharge summary. Patient was discharged on 04/18/23. This dictation was prepared using [employer] voice recognition software. Though every attempt is made to correct errors during dictation some may still exist. Plan - Discharge Summary Discharge Rx Participant: No New Discharge Prescriptions: New DAPTOmycin [Cubicin] 500 mg IVPB Q24H each Continue OLANZapine [ZyPREXA] 2.5 mg PO HS PRN PRN Reason: Nausea from chemo Prochlorperazine [Compazine] 10 mg PO Q6H PRN PRN Reason: Nausea dexAMETHasone [Decadron] 4 - 8 mg PO DIRECTED traZODone HCL [Desyrel] 50 - 75 mg PO HS PRN PRN Reason: Insomnia hydrOXYzine pamoate [Vistaril] 25 mg PO BID PRN PRN Reason: Anxiety Escitalopram [Lexapro] 20 mg PO DAILY Ondansetron [Zofran] 4 mg PO Q4H PRN PRN Reason: Nausea No Action Brexpiprazole [Rexulti] 1 mg PO HS Discharge Medication List traZODone HCL [Desyrel] 50 - 75 mg PO HS PRN 10/18/22 [History] Brexpiprazole [Rexulti] 1 mg PO HS 12/23/22 [History] Escitalopram [Lexapro] 20 mg PO DAILY 12/23/22 [History] hydrOXYzine pamoate [Vistaril] 25 mg PO BID PRN 12/23/22 [History] OLANZapine [ZyPREXA] 2.5 mg PO HS PRN 02/18/23 [History] Ondansetron [Zofran] 4 mg PO Q4H PRN 02/18/23 [History] Prochlorperazine [Compazine] 10 mg PO Q6H PRN 04/14/23 [History] dexAMETHasone [Decadron] 4 - 8 mg PO DIRECTED 04/14/23 [History] DAPTOmycin [Cubicin] 500 mg IVPB Q24H each 04/18/23 [Rx] Follow up Appointment(s)/Referral(s): [facility],Infusion [NON-STAFF] - 04/19/23 2:00 pm (You are scheduled for outpatient IV Daptomycin 500 mg daily for 2 weeks at [facility] at 2:00 p.m. ) None,Stated [Primary Care Provider] - 1-2 days (Please call for appointment.) Dylan Block MD [STAFF PHYSICIAN] - 05/03/23 2:30 pm Tono Mike MD [STAFF PHYSICIAN] - 1 Week Activity/Diet/Wound Care/Special Instructions: Activity: as tolerated Diet: regular Wound Care: as per surgeon instructions Special Instructions: Follow-up with [facility] for infusion Discharge Disposition: HOME SELF-CARE
[2023-04-18] MEDS ORDERED: HYDROcodone/APAP 5-325MG 1 EACH TAB PO PRN (19:57)
[2023-04-18] MEDS: Brexpiprazole [Rexulti] 1 MG Tablet PO SCH (20:46)
--- NOTE | 2023-04-18 22:32 | P.PN ---
Subjective Progress Note Date: 04/18/23 Principal diagnosis: Left breast wound and cellulitis Patient is a 32-year-old female with a past medical history significant for breast cancer in this patient who is status post bilateral mastectomy and implant presenting to the hospital with sepsis patient did have a left breast wound and cellulitis CT was negative for any abscess. On today's evaluation that is 04/18/2023, The patient remains to be afebrile, patient is breathing comfortably no chest pain shortness of breath or cough denies any worsening pain to the left breast area patient has been evaluated pl astic surgery and planning for I&D and closure of the left breast wound this afternoon Objective - Vital Signs Vital signs: Vital Signs Temp 98.1 F 04/18/23 07:12 Pulse 65 04/18/23 07:12 Resp 16 04/18/23 07:12 BP 108/73 04/18/23 07:12 Pulse Ox 96 04/18/23 07:12 FiO2 Intake & Output 04/17/23 04/18/23 04/18/23 18:59 06:59 18:59 Other: Voiding Method Toilet # Voids 7 2 # Bowel Movements 1 - Exam GENERAL DESCRIPTION: Middle-aged female lying in bed in no distress RESPIRATORY SYSTEM: Unlabored breathing , clear to auscultation anteriorly HEART: S1 S2 regular rate and rhythm , ABDOMEN: Soft , no tenderness L breast swelling and redness has decreased - Labs CBC & Chem 7: 04/17/23 10:14 04/17/23 10:14 Labs: Microbiology - Last 24 Hours (Table) 04/14/23 12:19 Blood Culture - Preliminary Blood 04/14/23 12:03 Blood Culture - Preliminary Blood Assessment and Plan (1) Breast wound Current Visit: Yes Status: Acute Priority: High Code(s): S21.009A - UNSPECIFIED OPEN WOUND OF UNSPECIFIED BREAST, INIT ENCNTR SNOMED Code(s): 65132532 (2) Sepsis Current Visit: Yes Status: Acute Code(s): A41.9 - SEPSIS, UNSPECIFIED ORGANISM SNOMED Code(s): 00522077 (3) Breast abscess Current Visit: No Status: Acute Priority: High Code(s): N61.1 - ABSCESS OF THE BREAST AND NIPPLE SNOMED Code(s): 20470005 Plan: 1patient was in the hospital with sepsis in this patient who did have a fever tachycardia elevated white count source is likely left breast cellulitis/wound infection as there was no evidence of any organizing fluid or breast as the patient did have both a CT as well as ultrasound of the left breast area and will need to cover for both gram-positive skin sandy as well as gram-negative pathogen. 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
--- NOTE | 2023-04-19 01:02 | OP ---
OPERATIVE REPORT DATE OF SERVICE : 04/18/2023 PREOPERATIVE DIAGNOSIS: Open left reconstructed breast wound with exposed assembler wet wash. POSTOPERATIVE DIAGNOSIS: Open left reconstructed breast wound with exposed assembler wet wash. OPERATIVE PROCEDURES: 1. Exploration of left reconstructed breast with excision of open wound. 2. Replacement of left breast tissue assembler wet wash for left breast reconstruction. 3. Complex repair of open left breast wound, 7 cm total length. OPERATIVE INDICATIONS: The patient is a 32-year-old female who underwent mastectomy procedures, immediate reconstruction via prepectoral technique in December. Procedure was somewhat complicated by a nonhealing wound involving the left reconstructed breast, although healthy and did make slow progress under local care. Additionally, the patient developed a seroma of the right reconstructed breast associated with cellulitis, but did resolve with hospital admission, IV antibiotics, and sterile drainage of the seroma. The patient was admitted to the hospital over the weekend with drainage from the left reconstructed breast and open wound, started on IV antibiotics, responded favorably with no fevers and decreasing white count. She was seen and evaluated in consultation this morning. The open wound in the left breast was noted to have a smaller opening at the superior aspect where the assembler wet wash was visible. I had a long discussion with the patient about surgery including my recommendation to return to the operating room. I excised the wound and replaced her assembler wet wash with extensive irrigation and deep culture. She was agreeable to this approach. She is aware of potential risks and complications of the surgery including postoperative infection, wound healing problems, seroma, hematoma, among others. OPERATIVE PROCEDURE SUMMARY: The patient was seen in the preoperative area, markings made. Procedure reviewed. All questions answered. She was transported to the operating room where she was placed in supine position. Following induction of general endotracheal anesthesia, the patient was prepped and draped in usual fashion. The left reconstructed breast wound with associated scar tissue in the area are outlined in elliptical fashion. The wound measures 2 x 1 square cm with small area of 2 x 2 mm of exposed assembler wet wash. There is no erythema beyond the wound margins and no purulent drainage noted. The wound was outlined and excised removing all full-thickness wound tissue first making incision with 10 blade scalpel, then using cautery. The excised tissue was sent to pathology. The assembler wet wash was present and removed intact. The expansion cavity appeared normal with no granulation tissue, no exudates. The graft from the prior procedure has incorporated completely. Irrigation was performed with pulsed irrigation unit and several liters of fluid. After the first 3 L, the wound cavity was rinsed with a 10% Betadine solution, and this was suctioned away and additional 3 L of pulsed irrigation was performed. Wound cultures were now obtained and sent to microbiology deep left reconstructed breast wound for Gram stain, aerobic, anaerobic, culture and sensitivity. All tissues that remained appeared healthy, minimal modification was needed to place new assembler wet wash into the cavity, some areas required small amount dissection to optimize positioning of the suture tabs. New assembler wet wash was opened on the field from the [facility] model line, reference #[id number], serial #[id number], rated for 600 mL volume. All air was removed from the device, it was initially tested into the cavity. As the device with fluid or air could not be inserted in the cavity and allow for closure with SutureTapes, device was placed in the cavity and the inferior and superior suture tabs were secured to the chest wall using 2-0 Vicryl sutures. Then the device was filled to 150 mL 0.9 normal saline. A 19-round Delano drain was inserted and brought through separate stab incision in the left anterior left chest wall and sutured in place with 2- 0 Prolene. The open wound was now closed. The wound measures 7 cm in length. The graft layer was 1st reapproximated using interrupted 2-0 Vicryl. Then the subcutaneous Cinthya's layer approximated using inverted interrupted 4-0 Monocryl followed by approximation of deep dermis using inverted interrupted 4-0 Monocryl and then completing the superficial epidermal closure with horizontal mattress suture running 5- 0 Prolene. Surgical field was cleansed with saline, dried, and postoperative bandages were placed using Kerlix squares, drain sponges are secured with 3 Medipore tape. Drains connected to close bulb suction patent. ESTIMATED BLOOD LOSS: 30 mL. MMODL / IJN: [id number] /
[2023-04-19 07:33] VITALS: BP 118/75; PULSE 74; RESP 17; TEMP 98.4
[2023-04-19] MEDS: ESCITALOPRAM 20 MG TAB PO SCH (08:45)
[2023-04-19 08:50] LABS: HCT 31.3 % (34.0-46.0); HGB 10.3 gm/dL (11.4-16.0); MCH 30.2 pg (25.0-35.0); MCV 91.6 fL (80.0-100.0); Platelet Count 276 k/uL (150-450); RBC 3.42 m/uL (3.80-5.40); RDW 15.9 % (11.5-15.5); WBC 10.7 k/uL (3.8-10.6)
[2023-04-19] MEDS: ENOXAPARIN 40 MG/0.4 ML SYRINGE SQ SCH (08:53)
[2023-04-19] MEDS: SODIUM CHLORIDE 0.9% 1,000 ML IV SCH (08:54)
--- NOTE | 2023-04-19 16:34 | P.DS ---
Providers Date of admission: 04/14/23 14:49 Expected date of discharge: 04/19/23 Attending physician: Sergio Llamas MD Consults: 04/14/23 14:49 Consult Physician Urgent Consulting Provider: Bjorn Albert Consult Reason/Comments: Breast wound Do you want consulting provider notified?: Yes Consult Physician Urgent Consulting Provider: Vika Lu Consult Reason/Comments: Oncological care, sepsis Do you want consulting provider notified?: Yes 04/15/23 09:19 Consult Physician Routine Consulting Provider: Dylan Block Consult Reason/Comments: Infected left chest wall seroma Do you want consulting provider notified?: Yes 04/18/23 08:16 Consult Physician Routine Consulting Provider: Tono Mike Consult Reason/Comments: breast infection Do you want consulting provider notified?: Yes Primary care physician: Stated None Hospital Course: Discharge Diagnosis: Left breast infection with community health planning director involvement with sepsis Anemia Grade 2 invasive ductal carcinoma, ER positive, 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 On arrival to the ER she underwent an extensive evaluation. Her initial vital signs showed a temperature of 102.7 and a pulse of 124 with a blood pressure 79/51. Laboratory analysis was remarkable for white blood cell count of 31.4, sodium 135, glucose 114, urinalysis negative, influenza A/B/RC/COVID-19 PCR were negative. Chest x-ray showed no acute process. Breast ultrasound showed no fluid collection with edematous surrounding tissue. Patient was admitted for possible cellulitis and infection of left breast implant. She was started on cefepime and vancomycin. General surgery and infectious disease were consulted. She underwent CT chest which showed small fluid collection surrounding the right breast implant possibly secondary to intraoperative versus extracapsular rupture, the left breast implant with gas around the implant and no definitive organizing fluid collection on the left, right fluid collection possibly correlates with ultrasound finding on 02/18/23 of simple fluid. Oncology was consulted. Cultures were obtained which showed MSSA. Patient had improvement in her white blood cell count. She was doing well. She was seen by plastics who recommneded closue of the wound in the OR, during this procedure the breast community health planning director was exchanged and the wound was closed and a JUDY drain was placed.. Givenbreast community health planning director in place ID recommneds Midline placement with 1-2 weeks of daptomycin which will be completed at his office. Oncology has recommended delaying her next chemo treatment. Follow-up: Dr. Block in 1 week, Dr. Mike in 1 week, and Dr. Amaya as directed. JUDY drain will remain in place until seen in follow-up. Wound to remain covered with 4 x 4 and change as needed for soaks through. Patient was told no lifting, pushing, or pulling greater than 10 pounds. She will have IV dapto via mid line at [facility]. Patient seen and examined at bedside. Pain is well controlled. She feels as though she manage at home with the continuation of Tylenol and Motrin. She is very familiar with how to handle her JUDY drain. Vital signs reviewed and stable. General: nontoxic, no distress, appears at stated age Cardiovascular: S1S2 reg, no murmur, positive posterior tibial pulse bilateral, Lungs: CTA bilateral, no rhonchi, no rales , no accessory muscle use Abdominal: soft, nontender to palpation, no guarding, no appreciable organomegaly Ext: no gross muscle atrophy, no edema b/l lower extremities, no contractures Neuro: CN II-XI grossly intact, no focal neuro deficits Psych: Alert, oriented, appropriate affect A total of 37 minutes of time were spent preparing this complex discharge summary. Patient was discharged on 04/19/23. This dictation was prepared using [employer] voice recognition software. Though every attempt is made to correct errors during dictation some may still exist. Plan - Discharge Summary Discharge Rx Participant: No New Discharge Prescriptions: New DAPTOmycin [Cubicin] 500 mg IVPB Q24H each Continue OLANZapine [ZyPREXA] 2.5 mg PO HS PRN PRN Reason: Nausea from chemo Prochlorperazine [Compazine] 10 mg PO Q6H PRN PRN Reason: Nausea dexAMETHasone [Decadron] 4 - 8 mg PO DIRECTED traZODone HCL [Desyrel] 50 - 75 mg PO HS PRN PRN Reason: Insomnia hydrOXYzine pamoate [Vistaril] 25 mg PO BID PRN PRN Reason: Anxiety Escitalopram [Lexapro] 20 mg PO DAILY Ondansetron [Zofran] 4 mg PO Q4H PRN PRN Reason: Nausea No Action Brexpiprazole [Rexulti] 1 mg PO HS Discharge Medication List traZODone HCL [Desyrel] 50 - 75 mg PO HS PRN 10/18/22 [History] Brexpiprazole [Rexulti] 1 mg PO HS 12/23/22 [History] Escitalopram [Lexapro] 20 mg PO DAILY 12/23/22 [History] hydrOXYzine pamoate [Vistaril] 25 mg PO BID PRN 12/23/22 [History] OLANZapine [ZyPREXA] 2.5 mg PO HS PRN 02/18/23 [History] Ondansetron [Zofran] 4 mg PO Q4H PRN 02/18/23 [History] Prochlorperazine [Compazine] 10 mg PO Q6H PRN 04/14/23 [History] dexAMETHasone [Decadron] 4 - 8 mg PO DIRECTED 04/14/23 [History] DAPTOmycin [Cubicin] 500 mg IVPB Q24H each 04/18/23 [Rx] Follow up Appointment(s)/Referral(s): Tono Mike MD [STAFF PHYSICIAN] - 1 Week (office not answering Please call to schedule appointment ) [facility],Infusion [NON-STAFF] - 04/19/23 2:00 pm (You are scheduled for outpatient IV Daptomycin 500 mg daily for 2 weeks at [facility] at 2:00 p.m. ) None,Stated [Primary Care Provider] - 1-2 days (Please call for appointment.) Dylan Block MD [STAFF PHYSICIAN] - 05/03/23 2:30 pm Activity/Diet/Wound Care/Special Instructions: Activity: as tolerated Diet: regular Wound Care: as per surgeon instructions Special Instructions: Follow-up with [facility] for infusion Keep surgical site covered with 4X4 and changed as need for soak through Maintain JUDY drain until seen in office. No lifting, pushing, or pulling greater than 10 pounds. Alternate tylenol and motrin Discharge Disposition: HOME SELF-CARE
== END 2023-04-19 10:17 | disposition home or self-care (01) | DRG 856 ==
LOC: EC 10:50 → 4SSUR 14:49
PROVIDERS: ADMIT Student in an Organized Health Care Education/Training Program; ATTEND Student in an Organized Health Care Education/Training Program
PROC: 0HPU0NZ Removal of Tissue Expander from Left Breast, Open Approach (ICD-10-PCS; principal; 2023-04-18 11:35)
PROC: 0JQ60ZZ Repair Chest Subcutaneous Tissue and Fascia, Open Approach (ICD-10-PCS; principal; 2023-04-18 11:35)
PROC: 0HHU0NZ Insertion of Tissue Expander into Left Breast, Open Approach (ICD-10-PCS; principal; 2023-04-18 11:35)
DX: T81.42XA Infection following a procedure, deep incisional surgical site, initial encounter (principal); A41.01 Sepsis due to Methicillin susceptible Staphylococcus aureus; M96.843 Postprocedural seroma of a musculoskeletal structure following other procedure; T85.79XA Infection and inflammatory reaction due to other internal prosthetic devices, implants and grafts, initial encounter; T85.49XA Other mechanical complication of breast prosthesis and implant, initial encounter; C50.912 Malignant neoplasm of unspecified site of left female breast; Y81.2 Prosthetic and other implants, materials and accessory general- and plastic-surgery devices associated with adverse incidents; Y83.1 Surgical operation with implant of artificial internal device as the cause of abnormal reaction of the patient, or of later complication, without mention of misadventure at the time of the procedure; Z17.0 Estrogen receptor positive status [ER+]; Z20.822 Contact with and (suspected) exposure to COVID-19; Z79.899 Other long term (current) drug therapy; Z87.891 Personal history of nicotine dependence; Z90.13 Acquired absence of bilateral breasts and nipples
CPT/HCPCS: 36410; 36415; 71046; 71260; 76937; 80048; 80053; 80202; 81003; 81025; 82565; 83605; 85025; 85027; 85610; 85730; 87040; 87070; 87075; 87077; 87186; 87205; 87636; 94760; 96361; 96365; 96366; 96367; 99291

== ENCOUNTER → 2023-08-11 | Outpatient (CLI) | payer BC, OTHER ==
--- NOTE | 2023-08-11 17:15 | BD ---
EXAMINATION TYPE: Axial Bone Density DATE OF EXAM: 08/11/2023 CLINICAL HISTORY: 33 years old Female. ICD-10 CODE: C50.412 MALIG NEOPLASM LEFT FEMALE BREAST Height: 64 Weight: 184.1 FRAX RISK QUESTIONS: Alcohol (3 or more units per day): no Family History (Parent hip fracture): no Glucocorticoids (More than 3mos): no History of Fracture in Adulthood: no Secondary Osteoporosis: 1. Type 1 Diabetes: no 2. Hyperthyroidism: no 3. Menopause before 45: yes 4. Malnutrition: no 5. Chronic liver disease: no Rheumatoid Arthritis: no Current Tobacco Use: no RISK FACTORS HISTORY OF: Hip Fracture (Right/Left): no Spine Fracture: no History of Wrist Fracture: RT Wrist When: Age 14 Surgery to Spine/Hip(right/left)/Wrist (right/left): no Family History of Osteoporosis: no Active: somewhat Diet low in dairy products/other sources of calcium: yes Postmenopausal woman: medication induced Take estrogen and/or progesterone medications: hormone emily How long: June 2023 Lost more than 2 inches in height since high school: no Frequent falls: no Poor Health: no Hyperparathyroidism: no Adrenal Insufficiency: no MEDICATIONS: Prednisone or other steroids: no Thyroid Medications: no Osteoporosis Medications:no Additional Medications: Lupron injection monthly, hormone emily, Lexapro, Vit D, Additional History: Breast Ca.Bilateral Mastectomy with Chemo and Radiation 2022 EXAM MEASUREMENTS: Bone mineral densitometry was performed using the [employer] System. Bone mineral density as measured about the Lumbar spine is: ----- L1-L4(G/cm2): 1.207 T Score Values are as follows: ----- L1: 0.3 ----- L2: 0.2 ----- L3: 0.8 ----- L4: -0.4 ----- L1-L4: 0.2 Z Score Values are as follows: ----- L1: -0.3 ----- L2: -0.4 ----- L3: 0.2 ----- L4: -1.0 ----- L1-L4: -0.4 Baseline Study Bone mineral density about the R hip (g/cm2): 0.995 Bone mineral density about the L hip (g/cm2): 0.980 T Score values are as follows: -----R Neck: -0.3 -----L Neck: -0.6 -----R Total: -0.1 -----L Total: -0.2 Z Score values are as follows: -----R Neck: -0.4 -----L Neck: -0.8 -----R Total: -0.4 -----L Total: -0.5 Baseline Study FRAX%s: The graph provided illustrates a % chance for a major osteoporotic fx and a % chance for the hips probability for fx in 10 years time. No Frax due to pt age. IMPRESSION: Normal (Values between +1 and -1 indicate normal bone mass). Consider repeating this study in 5 year s or sooner if there is some new clinical indication. NOTE: T-SCORE=SD OF THE YOUNG ADULT MEAN.
== END | disposition home or self-care (01) ==
LOC: RADBDWWP 16:13
PROVIDERS: ATTEND Internal Medicine Hematology & Oncology
DX: C50.412 Malignant neoplasm of upper-outer quadrant of left female breast (principal); K92.1 Melena; Z71.3 Dietary counseling and surveillance; F41.9 Anxiety disorder, unspecified
CPT/HCPCS: 77080

== ENCOUNTER 2024-01-23 06:14 | Day surgery (SDC) | payer BC, OTHER ==
[2024-01-23] MEDS ORDERED: METOCLOPRAMIDE 5 MG/ML 2 ML VIAL IVP PRN (06:33)
[2024-01-23] MEDS ORDERED: diphenhydrAMINE 50 MG/ML 1 ML VIAL ONE (07:06)
[2024-01-23] MEDS: LIDOCAINE 1% (10MG/ML) FOR IV START INTRADERMA PRN (07:18)
[2024-01-23] MEDS: DEXAMETHASONE SOD PHOSPHATE 4 MG/ML 1 ML VIAL IV ONE (07:18)
[2024-01-23] MEDS: LACTATED RINGERS 1,000 ML IV SCH (07:18)
[2024-01-23] MEDS: ONDANSETRON 4 MG/2 ML VIAL IVP ONE (07:19)
[2024-01-23] MEDS: FAMOTIDINE 20 MG/2 ML VIAL IVP ONE (07:23)
[2024-01-23] MEDS: diphenhydrAMINE 50 MG/ML 1 ML VIAL IVP ONE (07:23)
[2024-01-23] MEDS ORDERED: MIDAZOLAM 2 MG/2 ML VIAL ONE (07:25)
[2024-01-23] MEDS ORDERED: LIDOCAINE 1% INJ 10MG/ML (20 ML MDV) ONE (07:25)
[2024-01-23] MEDS ORDERED: PROPOFOL 10 MG/ML 20 ML VIAL IV ONE (07:25)
[2024-01-23] MEDS ORDERED: PHENYLEPHRINE 10 MG/ML VIAL ONE (07:25)
[2024-01-23] MEDS ORDERED: GLYCOPYRROLATE 0.2 MG/ML 2 ML VIAL ONE (07:25)
[2024-01-23] MEDS ORDERED: NEOSTIGMINE 1 MG/ML 10 ML VIAL ONE (07:25)
[2024-01-23] MEDS ORDERED: SUCCINYLCHOLINE CHLORIDE 200 MG/10 ML VIAL IV ONE (07:25)
[2024-01-23] MEDS ORDERED: ROCURONIUM 10 MG/ML (5 ML VIAL) IV ONE (07:25)
[2024-01-23] MEDS ORDERED: fentaNYL (PF) 50 MCG/ML 2 ML AMP ONE (07:25)
[2024-01-23 07:39] LABS: Basophils % (A) 1 %; Eosinophils # (A) 0.1 k/uL (0-0.7); Eosinophils % (A) 2 %; HCT 39.9 % (34.0-46.0); HGB 13.3 gm/dL (11.4-16.0); Lymphocytes # (A) 0.6 k/uL (1.0-4.8); Lymphocytes % (A) 14 %; MCH 29.9 pg (25.0-35.0); MCHC 33.4 g/dL (31.0-37.0); MCV 89.6 fL (80.0-100.0); Mean Platelet Volume 8.1; Monocytes # (A) 0.3 k/uL (0-1.0); Monocytes % (A) 7 %; Neutrophils # (A) 3.4 k/uL (1.3-7.7); Neutrophils % (A) 75 %; Platelet Count 212 k/uL (150-450); RBC 4.45 m/uL (3.80-5.40); RDW 12.8 % (11.5-15.5); WBC 4.6 k/uL (3.8-10.6)
[2024-01-23 07:50] LABS: ALT 21 U/L (4-34); AST 23 U/L (14-36); African American GFR (CKD) >90 (>60 ml/min/1.73 sqM); Albumin 4.2 g/dL (3.5-5.0); Alkaline Phosphatase 64 U/L (38-126); Anion Gap 8 mmol/L; Blood Urea Nitrogen 13 mg/dL (7-17); Calcium 9.3 mg/dL (8.4-10.2); Carbon Dioxide 22 mmol/L (22-30); Chloride 111 mmol/L (98-107); Glucose 105 mg/dL (74-99); Non-African American GFR(CKD) >90 (>60 ml/min/1.73 sqM); Potassium 3.5 mmol/L (3.5-5.1); Sodium 141 mmol/L (137-145); Total Bilirubin 0.8 mg/dL (0.2-1.3)
[2024-01-23 10:01] VITALS: RESP 16; TEMP 98
[2024-01-23] MEDS: HYDROmorphone 0.5 MG/0.5 ML SYRINGE IVP PRN (10:10)
[2024-01-23] MEDS ORDERED: HYDROcodone/APAP 5-325MG 1 EACH TAB ONE (10:44)
[2024-01-23] MEDS: HYDROcodone/APAP 5-325MG 1 EACH TAB PO ONE (10:49)
[2024-01-23 11:09] VITALS: BP 127/83; PULSE 64
--- NOTE | 2024-01-23 12:57 | OP ---
OPERATIVE REPORT DATE OF SERVICE : 01/23/2024 PREOPERATIVE DIAGNOSES: 1. Acquired absence, right and left breast. 2. Acquired deformity, right and left reconstructed breast. 3. Acquired loss, right and left breast inframammary folds. 4. Personal history of breast cancer. 5. Personal history of bilateral mastectomy. 6. Delayed effects of radiation therapy, left reconstructed breast. POSTOPERATIVE DIAGNOSES: 1. 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 2. Acquired deformity of right and left reconstructed breast. 3. 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 4. Personal history of breast cancer. 5. Personal history of bilateral mastectomy. 6. Delayed effects of radiation therapy, left reconstructed breast. OPERATIVE PROCEDURES: 1. Replace left reconstructed breast tissue inspecting machine adjuster, silicone breast implant for left breast reconstruction. 2. Revision of left reconstructed breast. 3. Replace right reconstructed breast tissue inspecting machine adjuster, silicone breast implant for right breast reconstruction. 4. Revision of right reconstructed breast. 5. Reconstruction of right and left breast inframammary folds via local advancement flap, 72 sq cm. OPERATIVE INDICATIONS: The patient is a 33-year-old female, who has undergone treatment of breast cancer, involving left breast with bilateral mastectomy and immediate reconstruction at that time, she required postoperative chemotherapy as well as radiation treatment. She did have a problem with infection, wound healing problems, involving the left reconstructed breast that required additional surgery as well as IV antibiotics, but did recover. She completed expansion and has waited over 6 months after completion of radiation therapy to the left breast to proceed with removal of her expanders and placement of breast implants as well as with revision and reconstruction of inframammary folds. The patient has significant contour irregularities, deformities of the breast due to the multiple surgeries, healing, and radiation treatments. She is aware of potential risks and complications of the surgeries today including those related to implants, as well as the surgery itself such as hematoma, seroma, wound infection, wound healing problems, among others. She has requested I perform the surgery. OPERATIVE PROCEDURE SUMMARY: The patient is in the preoperative area, markings made, procedure reviewed. All questions answered. She was transported to the operating room, where she was placed in supine position. Following induction of general anesthesia, the patient was prepped and draped in usual fashion. Incision markings were made with a skin marker in transverse fashion, following the scar present in each breast in a transverse fashion, started on the right side, incision made with a 10-blade scalpel dividing skin full- thickness fashion, then using cautery to divide subcutaneous tissue, maintain hemostasis while dissecting. Once reaching the capsular scar layer, dissection was performed to release the skin, subcutaneous tissue flap from the underlying graft and capsular scar area to release contour irregularities. Extensive dissection was required at this part. Hemostasis maintained with cautery while dissecting. Once this was completed, a lower transverse incision was made through the capsular layer exposing the expanders. The expanders removed intact. The expansion cavity appeared normal with no granulation tissue, no exudates, and small amount of serous fluid. Capsulotomy incision was made, where the capsule joined the chest wall circumferentially in multiple cruciate incisions through the capsular structure medially, superiorly, and laterally to release the tightness. Inferiorly, vertical incisions were made through the capsular structure to release the tightness. Irrigation was performed. Hemostasis was optimized with cautery and the site was packed open with multiple laparotomy sponges. Attention was now turned towards the patient's left side. Incision was made following the diagram places with scalpel, dividing skin full-thickness fashion and then cautery to maintain hemostasis, divide subcutaneous tissue, identifying the graft and scar layer. Skin and subcutaneous tissue flaps were elevated off this layer. Extensive dissection required to release contour irregularities, noted preoperatively. Hemostasis maintained with cautery while doing this. Once complete, a lower transverse incision was made through the capsular scar layer exposing the inspecting machine adjuster, the inspecting machine adjuster was removed intact. The expansion cavity appeared normal with a small amount of serous fluid, no granulation tissue, no exudates. A complete capsulotomy incision was made, where the capsule joined the chest wall in the multiple cruciate incisions through the capsular structure medially, superiorly, and laterally. Inferiorly, vertical incisions were made through the capsular structure to release the tightness. Hemostasis maintained with cautery. Irrigation was performed on both sides. Multiple breast implant sizers opened on the field after trying several with evaluated seated up position. Ultimately, a 560 mL sizer appeared optimal for both reconstructed breasts. She has returned to supine position. Temporary implant sizer was removed. Cavities were irrigated. Hemostasis was optimal. The inframammary folds were now created on the right and left side. Both areas measured at 18 x 2 sq cm. A skin and subcutaneous tissue flap was now dissected through the inferior portion of the capsulotomy incision with cautery. Once created, the inframammary folds were advanced in a cephalad fashion, secured to rib periosteal tissues, symmetrical location in the right and left reconstructed breast, chest wall areas with 2-0 and 3-0 Vicryl sutures, creating a discrete inframammary fold in the near symmetrical location. Temporary breast implant sizers measuring 560 mL were replaced in the cavities and the skin incision temporary closed with jessica. The patient was placed in a seated up position again, desired result was achieved. She was returned to supine position, temporary jessica removed, implant sizers removed, cavities re-irrigated. Hemostasis was optimal. Gloves now changed and implants opened on the field. Both implants were the same from the [employer] Soft Touch breast implant line, reference number [id number]. The left- sided serial number was [id number] and the right-sided serial number was [id number]. The right-sided device was placed first and then, directly after that, the left-sided device was placed. Both implants were placed in the reconstructive cavities using Ponce funnel no-touch technique. The graft scar layers were now closed over the implants using 3-0 Vicryl followed by closure of the deep dermis of each wound site using inverted interrupted 4-0 Monocryl and closure of superficial dermis and epidermis with running 5-0 Prolene. Surgical vazquez cleansed with saline dried and postop bandages placed using half-inch Steri-Strips, Kerlix squares secured with 3 Medipore tape, and positioning a size 4 right mammary support with additional gauze padding to the lateral aspects. The patient was then awakened from anesthetic, extubated in operating room, transferred to recovery room in good condition with stable vital signs. The estimated blood loss was 50 mL. There were no complications. MMODL / IJN: [id number] /
== END 2024-01-23 11:18 | disposition home or self-care (01) ==
LOC: OR 06:14
PROVIDERS: ATTEND Plastic Surgery
DX: Z85.3 Personal history of malignant neoplasm of breast (principal); F41.9 Anxiety disorder, unspecified; F32.A Depression, unspecified; Z79.899 Other long term (current) drug therapy
CPT/HCPCS: 80053; 85025; 19380; J1200; J1100; J0690; J2405; J3490; J1170; 81025

== ENCOUNTER → 2024-12-24 | Outpatient (CLI) | payer BC, OTHER ==
[2024-12-24 10:31] VITALS: BP 118/82; PULSE 82; RESP 16; TEMP 98
[2024-12-24] MEDS: LEUPROLIDE ACET 11.25MG SYRGKIT IM NR (10:35)
== END ==
LOC: PROCWHC3 07:43
PROVIDERS: ATTEND Internal Medicine Hematology & Oncology
DX: C50.412 Malignant neoplasm of upper-outer quadrant of left female breast (principal)
CPT/HCPCS: 96402; J1950; 96401

== ENCOUNTER 2025-03-05 14:02 | Emergency (ER) | payer BC, OTHER ==
[2025-03-05 14:41] LABS: Appearance,Urine Clear (Clear); Bilirubin,Urine Negative (Negative); Blood,Urine Trace (Negative); Color,Urine Colorless; Glucose,Urine (UA) Negative (Negative); Ketones,Urine Negative (Negative); Leukocyte Esterase,Urine Negative (Negative); Mucus,Urine Rare /hpf; Nitrite,Urine Negative (Negative); PH, Urine 7.5 (5.0-8.0); Protein,Urine Negative (Negative); RBC,Urine 4 /hpf (0-5); Specific Gravity,Urine 1.017 (1.001-1.035); Squamous Epithelial Cell,Urine <1 /hpf (0-4); Urobilinogen,Urine <2.0 mg/dL (<2.0); WBC,Urine <1 /hpf (0-5)
--- NOTE | 2025-03-05 14:59 | ED ---
General Adult HPI - General Chief complaint: Shortness of Breath Stated complaint: SOB,Fever Time Seen by Provider: 03/05/25 14:59 Source: patient, family (sister), RN notes reviewed Limitations: no limitations - History of Present Illness Initial comments: 34-year-old female with a past medical history significant of breast cancer presenting to the ER for evaluation of body shakes and difficulty in breathing. Patient denies current radiation or chemotherapy. Patient reports she is following up with Dr. Lu and had an MRI with contrast completed yesterday to evaluate for a left axillary lymph node. Patient states around 1230 today while at work she started to feel lightheaded and unwell. She states she was in a work meeting and she went to the bathroom to splash water on her face. She also started to feel nauseous but denies actually vomiting. Since then patient r eports hot and cold flashes with body shakes. She states she feels as if she is septic like she was prior due to a breast infection which required IV antibiotics. She denies any breast redness, swelling or lumps. Patient has not taken anything for her symptoms. Patient does report a sharp chest discomfort with deep inspiration, no discomfort at rest. She denies any shortness of breath at rest, orthopnea, peripheral edema, known fevers, abdominal pain, diarrhea/constipation, urinary complaints. No other complaints. - Related Data Home Medications Medication Instructions Recorded Confirmed traZODone HCL [Desyrel] 50 - 75 mg PO HS PRN 10/18/22 03/05/25 Letrozole 2.5 mg PO DAILY 09/12/23 03/05/25 Escitalopram [Lexapro] 20 mg PO DAILY 03/05/25 03/05/25 Leuprolide Acetate [Lupron Depot] 11.25 mg IM Q90D 03/05/25 03/05/25 hydrOXYzine pamoate [Vistaril] 25 mg PO BID PRN 03/05/25 03/05/25 Allergies Allergy/AdvReac Type Severity Reaction Status Date / Time No Known Allergies Allergy Verified 03/05/25 14:11 Review of Systems ROS Statement: Those systems with pertinent positive or pertinent negative responses have been documented in the HPI. ROS Other: All systems not noted in ROS Statement are negative. Past Medical History Past Medical History: Cancer Additional Past Medical History / Comment(s): breast cancer current History of Any Multi-Drug Resistant Organisms: None Reported Past Surgical History: Breast Surgery Additional Past Surgical History / Comment(s): urethral mass removed. Right breast biopsy 2019 left breast biopsy 10/18/2022 Past Anesthesia/Blood Transfusion Reactions: No Reported Reaction Past Psychological History: Anxiety, Depression Smoking Status: Never smoker General Exam Limitations: no limitations General appearance: alert, in no apparent distress, other (rigors) ENT exam: Present: normal exam, normal oropharynx, mucous membranes moist Respiratory exam: Present: normal lung sounds bilaterally. Absent: respiratory distress, wheezes, rales, rhonchi, stridor Cardiovascular Exam: Present: regular rate, normal rhythm, normal heart sounds. Absent: systolic murmur, diastolic murmur, rubs, gallop, clicks GI/Abdominal exam: Present: soft, normal bowel sounds. Absent: distended, tenderness, guarding, rebound, rigid Neurological exam: Present: alert, oriented X3, CN II-XII intact Skin exam: Present: warm, dry, intact, normal color, other (bilateral breast w ithout tenderness, redness or induration. No palpable lesions. No nipples with surgical scars horizontally through mid breast.). Absent: rash Course Vital Signs 03/05/25 03/05/25 03/05/25 14:08 15:38 17:02 Temperature 99.7 F H 103.0 F H 100.7 F H Pulse Rate 100 89 Respiratory 18 20 Rate Blood Pressure 135/80 141/74 O2 Sat by Pulse 99 98 Oximetry 03/05/25 17:46 Temperature 100.0 F H Pulse Rate 88 Respiratory 18 Rate Blood Pressure 103/66 O2 Sat by Pulse 97 Oximetry EKG Findings - EKG Comments: EKG Findings:: EKG taken at 15: 15 showing a sinus rhythm. Inverted T waves lead III. No ST segment elevations or depressions. Ventricular rate 85 AK interval 136, QRS duration 100, QT/QTc 363/405. Medical Decision Making - Medical Decision Making Was pt. sent in by a medical professional or institution (, PA, CLINICAL EDUCATION CONSULTANT, urgent care, hospital, or residential...) When possible be specific @ -No Did you speak to anyone other than the patient for history (EMS, parent, family, police, friend...)? What history was obtained from this source @ -Patient's sister, at bedside, aiding in HPI and past medical history Did you review nursing and triage notes (agree or disagree)? Why? @ -I reviewed and agree with nursing and triage notes Were old charts reviewed (outside hosp., previous admission, EMS record, old EKG, old radiological studies, urgent care reports/EKG's, residential records)? Report findings @ -No old charts were reviewed Differential Diagnosis (chest pain, altered mental status, abdominal pain women, abdominal pain men, vaginal bleeding, weakness, fever, dyspnea, syncope, headache, dizziness, GI bleed, back pain, seizure, CVA, palpatations, mental health, musculoskeletal)? @ -Differential Fever:Pneumonia, viral URI, endocarditis, myocarditis, pericard itis, otitis, sinusitis, peritonsillar Abscess, retropharyngeal Abscess, epiglottitis, peritonitis, appendicitis, Sri cystitis, diverticulitis, hepatitis, colitis, UTI, PID, TOA, pyelonephritis, prostatitis, epididymitis, meningitis, encephalitis, pulmonary embolism, CVA, thyroid storm, pancreatitis, adrenal crisis, cavernous sinus thrombosis, this is not meant to be an all- inclusive list. EKG interpreted by me (3pts min.). @ -As above X-rays interpreted by me (1pt min.). @ -CXR interpreted by me negative for focal consolidations, pneumothorax or pleural effusions. CT interpreted by me (1pt min.). @ -None done U/S interpreted by me (1pt. min.). @ -None done What testing was considered but not performed or refused? (CT, X-rays, U/S, labs)? Why? @ -None What meds were considered but not given or refused? Why? @ -None Did you discuss the management of the patient with other professionals (professionals i.e. , PA, CLINICAL EDUCATION CONSULTANT, lab, RT, psych nurse, mental health social worker, digital strategy specialist, teacher, transit authority police officer, correctional case records supervisor)? Give summary @ -No Was smoking cessation discussed for >3mins.? @ -No Was critical care preformed (if so, how long)? @ -No Were there social determinants of health that impacted care today? How? (Homelessness, low income, unemployed, alcoholism, drug addiction, transporta tion, low edu. Level, literacy, decrease access to med. care, senior care, rehab)? @ -No Was there de-escalation of care discussed even if they declined (Discuss DNR or withdrawal of care, Hospice)? DNR status @ -No What co-morbidities impacted this encounter? (DM, HTN, Smoking, COPD, CAD, Cancer, CVA, ARF, Chemo, Hep., AIDS, mental health diagnosis, sleep apnea, morbid obesity)? @ -Hx breast cancer not currently on chemotherapy or radiation Was patient admitted / discharged? Hospital course, mention meds given and route, prescriptions, significant lab abnormalities, going to OR and other pertinent info. @ -Discharged. 67 year old female presenting to the ER for evaluation of fever. On my evaluation, patient febrile at 103.0F vitals otherwise within acceptable limits. Patient does have rigors but is in no signs of acute distress. Laboratory studies obtained without significant leukocytosis WBC 7.8, electrolyte abnormality or acidosis. Urinalysis with trace blood no infection. Urine HCG negative. Cephid and strep negative. CXR negative for acute cardiopulmonary process. Patient given symptomatic control with IV fluid bolus, Toradol and Tylenol with improvement of fever. Upon reevaluation, patient resting comfortable in exam room not signs of acute distress eating yadiel crackers. Results discussed with patient, all questions answered. I advised continue use of OTC ibuprofen and tylenol for fever and symptom control outpatient. Strict return parameters discussed. Patient discharged in stable condition with follow-up with PCP. Patient verbally expressed understanding and agreement with care plan. Case discussed with ED attending, , who also evaluated patient. Undiagnosed new problem with uncertain prognosis? @ -No Drug Therapy requiring intensive monitoring for toxicity (Heparin, Nitro, Insulin, Cardizem)? @ -No Were any procedures done? @ -No Diagnosis/symptom? @ -Fever Acute, or Chronic, or Acute on Chronic? @ -Acute Uncomplicated (without systemic symptoms) or Complicated (systemic symptoms)? @ -Uncomplicated Side effects of treatment? @ -No Exacerbation, Progression, or Severe Exacerbation? @ -No Poses a threat to life or bodily function? How? (Chest pain, [place], [place], pneumonia, PE, COPD, DKA, ARF, appy, cholecystitis, CVA, Diverticulitis, Homicidal, Suicidal, threat to staff... and all critical care pts) @ -Low at this time - Lab Data Result diagrams: 03/05/25 15:26 03/05/25 15:26 Lab Results 03/05/25 03/05/25 03/05/25 Range/Units 14:13 14:13 15:04 WBC (4.50-10.00) 10*3/uL RBC (4.10-5.20) 10*6/uL Hgb (12.0-15.0) g/dL Hct (37.2-46.3) % MCV (80.0-97.0) fL MCH (27.0-32.0) pg MCHC (32.0-37.0) g/dL Plt Count (140-440) 10*3/uL MPV (9.5-12.2) fL Immature Gran % (Auto) % Neutrophils % % Lymphocytes % % Monocytes % % Eosinophils % % Basophils % % Immature Gran # (0.00-0.04) 10*3/uL Neutrophils # (1.80-7.70) 10*3/uL Lymphocytes # (0.90-5.00) 10*3/uL Monocytes # (0.20-1.00) 10*3/uL Eosinophils # (0.04-0.35) 10*3/uL Basophils # (0.00-0.10) 10*3/uL Sodium (137-145) mmol/L Potassium (3.5-5.1) mmol/L Chloride (98-107) mmol/L Carbon Dioxide (22-30) mmol/L Anion Gap mmol/L BUN (7-17) mg/dL Creatinine (0.52-1.04) mg/dL Est GFR (CKD-EPI)AfAm (>60 ml/min/1.73 sqM) Est GFR (CKD-EPI)NonAf (>60 ml/min/1.73 sqM) Glucose (74-99) mg/dL Plasma Lactic Acid Kenan (0.7-2.0) mmol/L Calcium (8.4-10.2) mg/dL Total Bilirubin (0.2-1.3) mg/dL AST (14-36) U/L ALT (4-34) U/L Alkaline Phosphatase (38-126) U/L Total Protein (6.3-8.2) g/dL Albumin (3.5-5.0) g/dL Urine Color Colorless Urine Appearance Clear (Clear) Urine pH 7.5 (5.0-8.0) Ur Specific [place] 1.017 (1.001-1.035) Urine Protein Negative (Negative) Urine Glucose (UA) Negative (Negative) Urine Ketones Negative (Negative) Urine Blood Trace H (Negative) Urine Nitrite Negative (Negative) Urine Bilirubin Negative (Negative) Urine Urobilinogen <2.0 (<2.0) mg/dL Ur Leukocyte Esterase Negative (Negative) Urine RBC 4 (0-5) /hpf Urine WBC <1 (0-5) /hpf Ur Squamous Epith Cells <1 (0-4) /hpf Urine Mucus Rare H (None) /hpf Urine HCG, Qual Not Detected (Not Detectd) Influenza Type A (PCR) Not Detected (Not Detectd) Influenza Type B (PCR) Not Detected (Not Detectd) RSV (PCR) Not Detected (Not Detectd) SARS-CoV-2 (PCR) Not Detected (Not Detectd) Group A Strep (PCR) (Not Detectd) 03/05/25 03/05/25 03/05/25 Range/Units 15:26 15:26 15:26 WBC 7.97 (4.50-10.00) 10*3/uL RBC 4.40 (4.10-5.20) 10*6/uL Hgb 13.6 (12.0-15.0) g/dL Hct 39.0 (37.2-46.3) % MCV 88.6 (80.0-97.0) fL MCH 30.9 (27.0-32.0) pg MCHC 34.9 (32.0-37.0) g/dL Plt Count 232 (140-440) 10*3/uL MPV 10.3 (9.5-12.2) fL Immature Gran % (Auto) 0.1 % Neutrophils % 89.4 % Lymphocytes % 3.5 % Monocytes % 5.9 % Eosinophils % 0.8 % Basophils % 0.3 % Immature Gran # 0.01 (0.00-0.04) 10*3/uL Neutrophils # 7.13 (1.80-7.70) 10*3/uL Lymphocytes # 0.28 L (0.90-5.00) 10*3/uL Monocytes # 0.47 (0.20-1.00) 10*3/uL Eosinophils # 0.06 (0.04-0.35) 10*3/uL Basophils # 0.02 (0.00-0.10) 10*3/uL Sodium 137 (137-145) mmol/L Potassium 3.7 (3.5-5.1) mmol/L Chloride 101 (98-107) mmol/L Carbon Dioxide 27 (22-30) mmol/L Anion Gap 9 mmol/L BUN 16 (7-17) mg/dL Creatinine 0.94 (0.52-1.04) mg/dL Est GFR (CKD-EPI)AfAm >90 (>60 ml/min/1.73 sqM) Est GFR (CKD-EPI)NonAf 78 (>60 ml/min/1.73 sqM) Glucose 101 H (74-99) mg/dL Plasma Lactic Acid Kenan 1.3 (0.7-2.0) mmol/L Calcium 9.4 (8.4-10.2) mg/dL Total Bilirubin 0.7 (0.2-1.3) mg/dL AST 23 (14-36) U/L ALT 19 (4-34) U/L Alkaline Phosphatase 68 (38-126) U/L Total Protein 7.5 (6.3-8.2) g/dL Albumin 4.5 (3.5-5.0) g/dL Urine Color Urine Appearance (Clear) Urine pH (5.0-8.0) Ur Specific [place] (1.001-1.035) Urine Protein (Negative) Urine Glucose (UA) (Negative) Urine Ketones (Negative) Urine Blood (Negative) Urine Nitrite (Negative) Urine Bilirubin (Negative) Urine Urobilinogen (<2.0) mg/dL Ur Leukocyte Esterase (Negative) Urine RBC (0-5) /hpf Urine WBC (0-5) /hpf Ur Squamous Epith Cells (0-4) /hpf Urine Mucus (None) /hpf Urine HCG, Qual (Not Detectd) Influenza Type A (PCR) (Not Detectd) Influenza Type B (PCR) (Not Detectd) RSV (PCR) (Not Detectd) SARS-CoV-2 (PCR) (Not Detectd) Group A Strep (PCR) (Not Detectd) 03/05/25 Range/Units 16:55 WBC (4.50-10.00) 10*3/uL RBC (4.10-5.20) 10*6/uL Hgb (12.0-15.0) g/dL Hct (37.2-46.3) % MCV (80.0-97.0) fL MCH (27.0-32.0) pg MCHC (32.0-37.0) g/dL Plt Count (140-440) 10*3/uL MPV (9.5-12.2) fL Immature Gran % (Auto) % Neutrophils % % Lymphocytes % % Monocytes % % Eosinophils % % Basophils % % Immature Gran # (0.00-0.04) 10*3/uL Neutrophils # (1.80-7.70) 10*3/uL Lymphocytes # (0.90-5.00) 10*3/uL Monocytes # (0.20-1.00) 10*3/uL Eosinophils # (0.04-0.35) 10*3/uL Basophils # (0.00-0.10) 10*3/uL Sodium (137-145) mmol/L Potassium (3.5-5.1) mmol/L Chloride (98-107) mmol/L Carbon Dioxide (22-30) mmol/L Anion Gap mmol/L BUN (7-17) mg/dL Creatinine (0.52-1.04) mg/dL Est GFR (CKD-EPI)AfAm (>60 ml/min/1.73 sqM) Est GFR (CKD-EPI)NonAf (>60 ml/min/1.73 sqM) Glucose (74-99) mg/dL Plasma Lactic Acid Kenan (0.7-2.0) mmol/L Calcium (8.4-10.2) mg/dL Total Bilirubin (0.2-1.3) mg/dL AST (14-36) U/L ALT (4-34) U/L Alkaline Phosphatase (38-126) U/L Total Protein (6.3-8.2) g/dL Albumin (3.5-5.0) g/dL Urine Color Urine Appearance (Clear) Urine pH (5.0-8.0) Ur Specific [place] (1.001-1.035) Urine Protein (Negative) Urine Glucose (UA) (Negative) Urine Ketones (Negative) Urine Blood (Negative) Urine Nitrite (Negative) Urine Bilirubin (Negative) Urine Urobilinogen (<2.0) mg/dL Ur Leukocyte Esterase (Negative) Urine RBC (0-5) /hpf Urine WBC (0-5) /hpf Ur Squamous Epith Cells (0-4) /hpf Urine Mucus (None) /hpf Urine HCG, Qual (Not Detectd) Influenza Type A (PCR) (Not Detectd) Influenza Type B (PCR) (Not Detectd) RSV (PCR) (Not Detectd) SARS-CoV-2 (PCR) (Not Detectd) Group A Strep (PCR) NOT DETECTED (Not Detectd) - Radiology Data Radiology results: report reviewed, image reviewed Disposition Clinical Impression: Fever Disposition: HOME SELF-CARE Condition: Stable Instructions (If sedation given, give patient instructions): Fever in Adults (ED) Additional Instructions: Alternate [id number] ibuprofen and Tylenol for fever control outpatient. Follow-up with PCP in the next 1 to 2 days. Return to the ER for any new or worsening concerns. Is patient prescribed a controlled substance at d/c from ED?: No Referrals: Birdie Ho DO [Primary Care Provider] - 1-2 days Time of Disposition: 17:34
[2025-03-05 15:33] LABS: Basophils # (A) 0.02 10*3/uL (0.00-0.10); Basophils % (A) 0.3 %; Eosinophils # (A) 0.06 10*3/uL (0.04-0.35); Eosinophils % (A) 0.8 %; HGB 13.6 g/dL (12.0-15.0); Lymphocytes # (A) 0.28 10*3/uL (0.90-5.00); Lymphocytes % (A) 3.5 %; MCH 30.9 pg (27.0-32.0); MCHC 34.9 g/dL (32.0-37.0); MCV 88.6 fL (80.0-97.0); Mean Platelet Volume 10.3 fL (9.5-12.2); Monocytes # (A) 0.47 10*3/uL (0.20-1.00); Monocytes % (A) 5.9 %; Neutrophils # (A) 7.13 10*3/uL (1.80-7.70); Neutrophils % (A) 89.4 %; Platelet Count 232 10*3/uL (140-440); RDW 11.9 % (11.5-14.5); WBC 7.97 10*3/uL (4.50-10.00)
[2025-03-05] MEDS: LACTATED RINGERS 1,000 ML IV ONE (15:34)
[2025-03-05] MEDS: ACETAMINOPHEN TAB 325 MG TAB PO STA (15:36)
[2025-03-05 15:48] LABS: ALT 19 U/L (4-34); AST 23 U/L (14-36); African American GFR (CKD) >90 (>60 ml/min/1.73 sqM); Albumin 4.5 g/dL (3.5-5.0); Alkaline Phosphatase 68 U/L (38-126); Anion Gap 9 mmol/L; Blood Urea Nitrogen 16 mg/dL (7-17); Calcium 9.4 mg/dL (8.4-10.2); Carbon Dioxide 27 mmol/L (22-30); Chloride 101 mmol/L (98-107); Glucose 101 mg/dL (74-99); Non-African American GFR(CKD) 78 (>60 ml/min/1.73 sqM); Potassium 3.7 mmol/L (3.5-5.1); Sodium 137 mmol/L (137-145); Total Bilirubin 0.7 mg/dL (0.2-1.3); Total Protein 7.5 g/dL (6.3-8.2)
[2025-03-05 15:55] LABS: Influenza A Not Detected (Not Detectd); Influenza B Not Detected (Not Detectd); RSV Not Detected (Not Detectd)
--- NOTE | 2025-03-05 16:09 | XR ---
EXAMINATION TYPE: XR chest 2V DATE OF EXAM: 03/05/2025 4:03 PM COMPARISON: 04/14/2023 CLINICAL INDICATION: Female, 34 years old with history of chills cough, , TECHNIQUE: PA and lateral views FINDINGS: Bilateral breast implants. This casts hazy densities in the lower lungs. Allowing for this limitation , the cardiomediastinal silhouette, aorta, and pulmonary vasculature are within normal limits. Lungs and pleural spaces are clear. IMPRESSION: No acute cardiopulmonary process. [facility], Workstation: JUAN PABLO, 03/05/2025 4:06 PM
[2025-03-05] MEDS: KETOROLAC 15 MG/ML 1 ML VIAL IVP STA (16:18)
[2025-03-05 17:48] VITALS: BP 103/66; PULSE 88; RESP 18; TEMP 100
== END 2025-03-05 17:47 | disposition home or self-care (01) ==
LOC: EC 14:02
DX: R50.9 Fever, unspecified (principal); Z85.3 Personal history of malignant neoplasm of breast
CPT/HCPCS: 36415; 93005; 87651; 80053; 83605; 85025; 81001; 81025; 87636; 71046; 99285; 96374; 96361; J1885